=== PATIENT | female | born 1960 | race Asian ===

== ENCOUNTER 2016-06-01 07:13 | Observation (INO) | payer OTHER ==
[2016-06-01] MEDS ORDERED: SODIUM CHLORIDE 0.9% 1,000 ML IV ONE ×2 (07:36→08:59)
[2016-06-01] MEDS ORDERED: ZOLPIDEM 5 MG TABLET PO PRN ×2 (09:30→10:14)
[2016-06-01] MEDS ORDERED: HYDROcod/ACETAM 5/325 MG TABLET PO PRN ×2 (09:30→10:14)
[2016-06-01] MEDS ORDERED: NON FORMULARY MED (Lisinopril [Lisinopril] 40 MG) PO SCH (09:30)
[2016-06-01] MEDS ORDERED: SODIUM CHLORIDE FLUSH 0.9% 10 ML SYRINGE IVP PRN ×2 (09:30→10:14)
[2016-06-01] MEDS ORDERED: PROCHLORPERAZINE 10 MG/2 ML VIAL IVP PRN ×2 (09:30→10:14)
[2016-06-01] MEDS ORDERED: ACETAMINOPHEN 325 MG TABLET PO PRN ×2 (09:30→10:14)
[2016-06-01] MEDS ORDERED: HYDROcod/ACETAM 10 MG/325 MG TABLET PO PRN ×2 (09:30→10:14)
[2016-06-01] MEDS ORDERED: ONDANSETRON 4 MG/2 ML VIAL IVP PRN ×2 (09:30→10:14)
[2016-06-01] MEDS ORDERED: METOPROLOL TARTRATE 25 MG TABLET PO SCH ×3 (10:00→11:00)
[2016-06-01] MEDS ORDERED: NS W/20 MEQ KCL 1,000 ML IV SCH ×2 (10:00)
[2016-06-01] MEDS ORDERED: ASPIRIN EC 81 MG TABLET PO SCH ×2 (10:00)
[2016-06-01] MEDS: SODIUM CHLORIDE 0.9% 1,000 ML IV SCH ×3 (10:58→23:47)
[2016-06-01] MEDS: ASPIRIN EC 81 MG TABLET PO SCH (11:23)
[2016-06-01] MEDS: ENOXAPARIN 30 MG/0.3 ML SYRINGE SUBQ SCH (11:24)
[2016-06-01] MEDS: LISINOPRIL 20 MG TABLET PO SCH (11:24)
[2016-06-01] MEDS: INSULIN ASPART 300 UNIT/3 ML PEN SUBQ SCH ×3 (11:57→21:42)
[2016-06-01] MEDS ORDERED: INSULIN ASPART 300 UNIT/3 ML PEN SUBQ SCH (12:00)
[2016-06-01] MEDS: SODIUM CHLORIDE FLUSH 0.9% 10 ML SYRINGE IVP SCH ×2 (13:18→21:46)
[2016-06-01] MEDS ORDERED: SODIUM CHLORIDE FLUSH 0.9% 10 ML SYRINGE IVP SCH (14:00)
[2016-06-01] MEDS: METOPROLOL TARTRATE 25 MG TABLET PO SCH (21:42)
[2016-06-01] MEDS: diltiaZEM CD 120 MG CAPSULE PO SCH (21:43)
[2016-06-02] MEDS: SODIUM CHLORIDE FLUSH 0.9% 10 ML SYRINGE IVP SCH (05:14)
[2016-06-02] MEDS: SODIUM CHLORIDE 0.9% 1,000 ML IV SCH (05:49)
[2016-06-02] MEDS ORDERED: PANTOPRAZOLE 40 MG TABLET PO SCH ×2 (07:00)
[2016-06-02] MEDS: FERROUS SULFATE 325 MG TABLET PO SCH (08:16)
[2016-06-02] MEDS: ASPIRIN EC 81 MG TABLET PO SCH (08:16)
[2016-06-02] MEDS: METOPROLOL TARTRATE 25 MG TABLET PO SCH (08:17)
[2016-06-02] MEDS: diltiaZEM CD 120 MG CAPSULE PO SCH (08:17)
[2016-06-02] MEDS: LISINOPRIL 20 MG TABLET PO SCH (08:17)
[2016-06-02] MEDS: ENOXAPARIN 30 MG/0.3 ML SYRINGE SUBQ SCH (08:19)
[2016-06-02] MEDS: INSULIN ASPART 300 UNIT/3 ML PEN SUBQ SCH (08:20)
[2016-06-02] MEDS ORDERED: amLODIPine 5 MG TABLET PO SCH (09:00)
[2016-06-02] MEDS ORDERED: POLYETHYLENE GLYCOL 3350 17 GM PACKET PO SCH ×2 (09:00)
[2016-06-02] MEDS ORDERED: ENOXAPARIN 40 MG/0.4 ML SYRINGE SUBQ SCH (09:00)
== END 2016-06-02 10:01 | disposition home or self-care (01) ==
DX: E87.1 Hypo-osmolality and hyponatremia (principal); I12.9 Hypertensive chronic kidney disease with stage 1 through stage 4 chronic kidney disease, or unspecified chronic kidney disease; E11.22 Type 2 diabetes mellitus with diabetic chronic kidney disease; N18.3 Chronic kidney disease, stage 3 (moderate); E86.0 Dehydration; E78.5 Hyperlipidemia, unspecified; E73.9 Lactose intolerance, unspecified; Z79.899 Other long term (current) drug therapy; Z79.82 Long term (current) use of aspirin; Z87.891 Personal history of nicotine dependence
CPT/HCPCS: 36415; 71020; 80048; 80053; 81001; 82533; 83036; 83690; 83735; 83935; 84100; 84443; 84550; 85025; 96360; 96361; 96372; 99283; 99284; A9270; G0378; J1650

== ENCOUNTER 2016-11-28 18:46 | Emergency (ER) | payer OTHER ==
[2016-11-28] MEDS ORDERED: PROCHLORPERAZINE 10 MG/2 ML VIAL IVP STA (20:43)
[2016-11-28] MEDS ORDERED: KETOROLAC 60 MG/2 ML VIAL IVP STA (20:43)
--- NOTE | 2016-11-28 20:43 | ED Physician Documentation ---
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 This occurred approximately 2 weeks ago and she is seeing a retinal specialist. She has since developed a headache over the past 2 days the headache has become intolerable. She has a headache across the top of her forehead and pain in the right eye and behind the right eye. She has some nausea and vomiting associated with this. Review of Systems Constitutional: denies: Fever, Chills Eyes: reports: Loss of vision, Irritation Ears: denies: Loss of hearing, Ear pain Nose: denies: Rhinorrhea / runny nose, Congestion Throat: denies: Sore throat Cardiac: denies: Chest pain / pressure, Palpitations Respiratory: denies: Dyspnea, Cough Skin: denies: Rash Musculoskeletal: reports: Neck pain. denies: Back pain, Extremity pain Neurologic: reports: Headache. denies: Generalized weakness, Focal weakness, Numbness, Head injury PD PAST MEDICAL HISTORY - Past Medical History Cardiovascular: Hypertension, High cholesterol Respiratory: None Endocrine/Autoimmune: Type 2 diabetes GI: None : None HEENT: Chronic vision loss Psych: None Musculoskeletal: None Derm: None - Past Surgical History Past Surgical History: Yes HEENT: Cataracts, Other - Present Medications Home Medications: Ambulatory Orders Medication Instructions Recorded Confirmed Lisinopril 40 mg PO DAILY 05/06/15 11/28/16 Glimepiride 4 mg PO BID 07/20/15 11/28/16 Linagliptin [Tradjenta] 5 mg PO DAILY 07/20/15 11/28/16 Diltiazem HCl [Cardizem LA] 120 mg PO BID 06/01/16 11/28/16 Ferrous Sulfate 325 mg PO DAILY 06/01/16 11/28/16 Metoprolol Tartrate 50 mg PO BID 06/01/16 11/28/16 Pioglitazone [Actos] 15 mg PO DAILY 06/01/16 11/28/16 amLODIPine [Norvasc] 10 mg PO DAILY 06/01/16 11/28/16 Furosemide [Lasix] 20 mg PO DAILY 11/28/16 11/28/16 Rosuvastatin Calcium [Crestor] 20 mg PO DAILY 11/28/16 11/28/16 HYDROcod/ACETAM 5/325 [[place] 5/325] 1 - 2 ea PO Q6H PRN #15 tablet 11/29/16 - Allergies Allergies/Adverse Reactions: Allergies Allergy/AdvReac Type Severity Reaction Status Date / Time No Known Drug Allergies Allergy Verified 07/20/15 17:15 - Social History Does the pt smoke?: No Smoking Status: Never smoker Does the pt drink ETOH?: No Does the pt have substance abuse?: No - Immunizations Immunizations are current?: Yes PD ED PE NORMAL - Vitals Vital signs reviewed: Yes (hypertensive ) - General General: Alert and oriented X 3, No acute distress, Well developed/nourished - HEENT HEENT: Atraumatic, Other (The right eye is filled with blood in the posterior chamber. The left is clear. There is marcy-orbital edema present on the right. ) - Neck Neck: Supple, no meningeal sign, No bony TTP - Cardiac Cardiac: RRR, No murmur - Respiratory Respiratory: No respiratory distress, Clear bilaterally - Abdomen Abdomen: Soft, Non tender - Back Back: No CVA TTP, No spinal TTP - Derm Derm: Normal color, Warm and dry, No rash - Extremities Extremities: No deformity, No edema - Neuro Neuro: No motor deficit, No sensory deficit, Normal speech - Psych Psych: Normal mood, Normal affect Results - Vitals Vitals: Vital Signs - 24 hr 11/28/16 11/28/16 11/29/16 18:55 22:54 00:05 Temperature 37.0 C Heart Rate 56 L 65 65 Respiratory 16 18 16 Rate Blood Pressure 165/73 H 192/72 H 163/85 H O2 Saturation 100 100 96 11/29/16 01:29 Temperature Heart Rate 90 Respiratory 16 Rate Blood Pressure 170/82 H O2 Saturation 95 Oxygen O2 Source Room air - Labs Labs: Laboratory Tests 11/28/16 11/28/16 11/28/16 20:45 22:00 22:00 WBC 11.3 H RBC 5.68 H Hgb 11.3 L Hct 35.7 L MCV 62.9 L MCH 19.9 L MCHC 31.6 L RDW 16.3 H Plt Count 256 MPV 10.0 Neut # Not Reportable Lymph # Not Reportable [place] # Not Reportable Eos # Not Reportable Baso # Not Reportable Absolute Nucleated RBC Not Reportable Total Counted 100 Band Neuts % (Manual) 1 Neutrophils # (Manual) 7.3 H Lymphocytes # (Manual) 3.5 Monocytes # (Manual) 0.2 Eosinophils # (Manual) 0.1 Basophils # (Manual) 0.1 Nucleated RBCs Not Reportable Differential Comment MANUAL DIFFERENTIAL Manual Slide Review Indicated Platelet Estimate NORMAL (130-450,000) Platelet Morphology NORMAL APPEARANCE RBC Morph Micro Appear 3+ MICROCYTOSIS Sodium 135 Potassium 3.3 L Chloride 103 Carbon Dioxide 24 Anion Gap 8.0 BUN 34 H Creatinine 3.1 H Estimated GFR (MDRD) 15 L Glucose 213 H Calcium 8.6 Total Bilirubin 0.7 AST 17 ALT 17 Alkaline Phosphatase 58 Total Protein 6.2 L Albumin 2.5 L Globulin 3.7 Albumin/Globulin Ratio 0.7 L Lipase 22 Urine Color YELLOW Urine Clarity CLEAR Urine pH 6.5 Ur Specific [place] 1.015 Urine Protein >=300 H Urine Glucose (UA) 500 H Urine Ketones NEGATIVE Urine Occult Blood MODERATE H Urine Nitrite NEGATIVE Urine Bilirubin NEGATIVE Urine Urobilinogen 0.2 (NORMAL) Ur Leukocyte Esterase NEGATIVE Urine RBC 0-5 Urine WBC 4-5 Ur Squamous Epith Cells MANY Squamous H Urine Bacteria None Seen Urine Casts 0-2 Hyaline Casts Ur Microscopic Review INDICATED Urine Culture Comments NOT INDICATED - Rads (name of study) CT head without Radiology: Prelim report reviewed (Impression: 1. Superficial soft tissue swelling. 2. Small right maxillary mucous retention cyst. 3. Otherwise negative study.), EMP read indepedently, See rad report Procedures - IVC sono (time) 2036 Bedside IVC sono: IVC measures (cm) (0.78), IVC collapsed c insp (cm) (complete) , Significant dehydration PD MEDICAL DECISION MAKING - ED course Complexity details: reviewed results, re-evaluated patient, considered differential, d/w patient, d/w family ED course: 56 y/o diabetic female with a severe headache has improvement with resolution of her headache with migraine treatment consisting of benadry, compazine, toradal, decadron and saline. She was found to be significantly dehydrated and I have encouraged hydration and she will need to follow up with her retinal specialist about her right eye as planned. Departure - Departure Disposition: Home, Self Care Clinical Impression: Dehydration, Acute kidney injury superimposed on chronic kidney disease Headache Qualifiers: Headache type: unspecified Headache chronicity pattern: acute headache Intractability: not intractable Qualified Code(s): R51 - Headache Condition: Stable Instructions: ED Dehydration, ED Headache Migraine Follow-Up: Amanda Dumas ARNP [Primary Care Provider] - Prescriptions: HYDROcod/ACETAM 5/325 [[place] 5/325] 1 - 2 ea PO Q6H PRN #15 tablet PRN Reason: Pain Comments: Follow-up with your retinal specialist as planned. Discharge Date/Time: 11/29/16 01:35
[2016-11-28] MEDS ORDERED: diphenhydrAMINE INJ 50 MG/ML VIAL IVP STA (20:44)
[2016-11-28] MEDS ORDERED: DEXAMETHASONE 10 MG/ML VIAL IVP STA (20:45)
[2016-11-28 21:23] LABS: BILIRUBIN,URINE NEGATIVE (NEGATIVE); PH,URINE 6.5 PH (5.0-7.5)
[2016-11-28 21:24] LABS: UA w/ MICROSCOPIC CHARGE YES
--- NOTE | 2016-11-28 21:31 | CT Preliminary Report ---
Exam: CT Head W/O IMPRESSION: 1. Superficial soft tissue swelling. 2. Small right maxillary mucous retention cyst. 3. Otherwise negative study. [facility] SITE ID: [id number]
[2016-11-28 21:32] LABS: UR CULTURE IF IND NOT INDICATED
--- NOTE | 2016-11-28 21:34 | CT Report ---
EXAM: CT HEAD EXAM DATE: 11/28/2016 09:17 PM. CLINICAL HISTORY: Frontal headache stiff neck retinal hemorrhage. COMPARISON: None. TECHNIQUE: Multiaxial CT images were obtained from the foramen magnum to the vertex. IV contrast: Non e. Reformats: Coronal. In accordance with CT protocol optimization, one or more of the following dose reduction techniques w ere utilized for this exam: automated exposure control, adjustment of mA and/or KV based on patient s ize, or use of iterative reconstructive technique. FINDINGS: Parenchyma: No intraparenchymal hemorrhage. No evidence of mass, midline shift, or CT findings of inf arction. Farias-white differentiation is distinct. Extraaxial Spaces: Normal for age. No subdural or epidural collections. Ventricles: Normal in size and position. Sinuses: Small mucous retention cyst in the base of the right maxillary sinus. No air-fluid level. Im pacted tooth in base of left maxillary sinus. Clear other sinuses. Bones: Unremarkable. Other: Minimal superficial soft tissue swelling over right orbit. IMPRESSION: 1. Superficial soft tissue swelling. 2. Small right maxillary mucous retention cyst. 3. Otherwise negative study. [facility] Referring Provider Line: [phone] SITE ID: [id number]
[2016-11-28] MEDS ORDERED: diphenhydrAMINE INJ 50 MG/ML VIAL ONE (22:11)
[2016-11-28] MEDS ORDERED: KETOROLAC 30 MG/ML VIAL ONE (22:11)
[2016-11-28] MEDS ORDERED: PROCHLORPERAZINE 10 MG/2 ML VIAL ONE (22:11)
[2016-11-28] MEDS ORDERED: DEXAMETHASONE 10 MG/ML VIAL ONE (22:11)
[2016-11-28 22:22] LABS: ALBUMIN/GLOBULIN RATIO 0.7 (1.0-2.2); BILIRUBIN,TOTAL 0.7 mg/dL (0.2-1.0); CALCIUM 8.6 mg/dL (8.5-10.3); CREATININE 3.1 mg/dL (0.4-1.0); POTASSIUM 3.3 mmol/L (3.5-5.0); TOTAL PROTEIN 6.2 g/dL (6.7-8.2)
[2016-11-28 22:25] LABS: BASOPHILS % (AUTO) 3.5 %; EOSINOPHILS % (AUTO) 1.1 %; HCT - HEMATOCRIT 35.7 % (37.0-47.0); HGB - HEMOGLOBIN 11.3 g/dL (12.0-16.0); LYMPHOCYTES % (AUTO) 28.8 %; MEAN CORPUSCULAR HEMOGLOBIN 19.9 pg (27.0-31.0); MEAN CORPUSCULAR HGB CONC 31.6 g/dL (32.0-36.0); MEAN CORPUSCULAR VOLUME 62.9 fL (81.0-99.0); MONOCYTES % (AUTO) 2.5 %; NEUTROPHILS % (AUTO) 64.1 %; RED BLOOD COUNT 5.68 10^6/uL (4.20-5.40); RED CELL DISTRIBUTION WIDTH 16.3 % (12.0-15.0); UNCORRECTED WHITE BLOOD COUNT 11.3 x10^3/uL; WHITE BLOOD COUNT 11.3 x10^3/uL (4.8-10.8)
[2016-11-28 22:42] LABS: BAND NEUTROPHILS % (MANUAL) 1 %; BASOPHILS % (MANUAL) 1 %; EOSINOPHILS % (MANUAL) 1 %; LYMPHOCYTES % (MANUAL) 31 %; NEUTROPHILS % (MANUAL) 64 %; TOTAL CELLS COUNTED 100
[2016-11-28 22:43] LABS: NP AUTO DIFFERENTIAL? YES; NP MAN DIFFERENTIAL? NO; PLATELET ESTIMATE, MANUAL NORMAL (130-450,000) (NORMAL); PLATELET MORPHOLOGY NORMAL APPEARANCE (NORMAL)
[2016-11-29] MEDS ORDERED: SODIUM CHLORIDE 0.9% 1,000 ML IV ONE (00:12)
[2016-11-29 01:31] VITALS: BP 170/82
== END 2016-11-29 01:35 | disposition home or self-care (01) ==
LOC: ED 18:46
DX: R51 Headache (principal); E86.0 Dehydration; N17.9 Acute kidney failure, unspecified; E11.319 Type 2 diabetes mellitus with unspecified diabetic retinopathy without macular edema; H35.61 Retinal hemorrhage, right eye; E11.22 Type 2 diabetes mellitus with diabetic chronic kidney disease; I12.9 Hypertensive chronic kidney disease with stage 1 through stage 4 chronic kidney disease, or unspecified chronic kidney disease; N18.9 Chronic kidney disease, unspecified; Z79.84 Long term (current) use of oral hypoglycemic drugs
CPT/HCPCS: 36415; 70450; 80053; 81001; 81003; 83690; 85025; 87086; 96374; 96375; 99283; 99284

== ENCOUNTER 2017-11-28 05:58 | Day surgery (SDC) | payer OTHER ==
[2017-11-28] MEDS ORDERED: LACTATED RINGERS 1,000 ML IV ONE (07:01)
--- NOTE | 2017-11-28 07:09 | ANESTHESIA ---
Pre-Anesthesia VS, & Labs - Diagnosis Screening exam - Procedure colonoscopy Vital Signs: Temp Pulse Resp BP Pulse Ox 36.2 C L 72 16 129/56 L 100 11/28/17 06:46 11/28/17 06:46 11/28/17 06:46 11/28/17 06:46 11/28/17 06:46 Height 4 ft 10 in Weight (kg) 49.7 kg Body Mass Index 27.2 - NPO >8 hours - Is Patient ?: Not Applicable - Lab Results Current Lab Results: Laboratory Tests 11/28/17 06:57: POC Whole Bld Glucose 123 H Lab results reviewed: Yes Home Medications and Allergies Home Medications: Ambulatory Orders Medication Instructions Recorded Confirmed Lisinopril 40 mg PO DAILY 05/06/15 11/28/16 Glimepiride 4 mg PO BID 07/20/15 11/28/16 Linagliptin [Tradjenta] 5 mg PO DAILY 07/20/15 11/28/16 Diltiazem HCl [Cardizem LA] 120 mg PO BID 06/01/16 11/28/16 Ferrous Sulfate 325 mg PO DAILY 06/01/16 11/28/16 Metoprolol Tartrate 50 mg PO BID 06/01/16 11/28/16 Pioglitazone [Actos] 15 mg PO DAILY 06/01/16 11/28/16 amLODIPine [Norvasc] 10 mg PO DAILY 06/01/16 11/28/16 Furosemide [Lasix] 20 mg PO DAILY 11/28/16 11/28/16 Rosuvastatin Calcium [Crestor] 20 mg PO DAILY 11/28/16 11/28/16 HYDROcod/ACETAM 5/325 [[place] [address] 5/325] 1 - 2 ea PO Q6H PRN #15 tablet 11/29/16 Lisinopril 40 mg PO DAILY 05/06/15 Glimepiride 4 mg PO BID 07/20/15 Linagliptin [Tradjenta] 5 mg PO DAILY 07/20/15 Diltiazem HCl [Cardizem LA] 120 mg PO BID 06/01/16 Ferrous Sulfate 325 mg PO DAILY 06/01/16 Metoprolol Tartrate 50 mg PO BID 06/01/16 Pioglitazone [Actos] 15 mg PO DAILY 06/01/16 amLODIPine [Norvasc] 10 mg PO DAILY 06/01/16 Furosemide [Lasix] 20 mg PO DAILY 11/28/16 Rosuvastatin Calcium [Crestor] 20 mg PO DAILY 11/28/16 Allergies/Adverse Reactions: Allergies Allergy/AdvReac Type Severity Reaction Status Date / Time No Known Drug Allergies Allergy Verified 07/20/15 17:15 Anes History & Medical History - Anesthetic History Anesthesia Complications: reports: Post-Operative Nausea/Vomiting Family history of Anesthesia Complications: Denies Family history of Malignant Hyperthermia: Denies - Medical History Cardiovascular: reports: Hypertension Pulmonary: reports: None Gastrointestinal: reports: None Urinary: reports: Dialysis (Last dialysis on 11/27/17), Renal insuffiency Neuro: reports: None Musculoskeletal: reports: None Endocrine/Autoimmune: reports: Type 2 diabetes Blood Disorders: reports: None Skin: reports: None Smoking Status: Never smoker Psychosocial: reports: No issues indicated - Surgical History General:  Eyes Ears Nose Throat (EENT): Cataracts, Other Cardiothoracic: Other (AV fistula) Exam General: Alert, Oriented x3, Cooperative, No acute distress Mouth Openin Fingerbreadth Neck Mobility: Normal Mallampati classification: II Thyromental Distance: 4-6 cm Respiratory: Lungs clear, Normal breath sounds, No respiratory distress, No accessory muscle use Cardiovascular: Regular rate, Normal S1, Normal S2, No murmurs Mental/Cognitive Status: Alert/Oriented X3, Normal for patient Cognitive Status: Within normal limits Plan Anesthesia Type: MAC Consent for Procedure(s) Verified and Reviewed: Yes Code Status: Attempt Resuscitation ASA classification: 4-Incapacitating disease Is this case an emergency?: No
[2017-11-28] MEDS ORDERED: MIDAZOLAM 2 MG/2 ML VIAL IVP ONE (07:40)
[2017-11-28] MEDS ORDERED: KETAMINE 500 MG/10 ML VIAL IVP ONE (07:40)
[2017-11-28] MEDS ORDERED: PROPOFOL 200 MG/20 ML VIAL IVP ONE (07:40)
[2017-11-28 08:30] VITALS: BP 122/55
== END 2017-11-28 05:59 | disposition home or self-care (01) ==
LOC: SDS 05:58
PROVIDERS: ATTEND Surgery
PROC: 0DBH8ZZ Excision of Cecum, Via Natural or Artificial Opening Endoscopic (ICD-10-PCS; principal; 2017-11-28 07:30)
DX: Z01.818 Encounter for other preprocedural examination (principal); Z12.11 Encounter for screening for malignant neoplasm of colon; D12.0 Benign neoplasm of cecum; K62.1 Rectal polyp; K64.8 Other hemorrhoids; E11.22 Type 2 diabetes mellitus with diabetic chronic kidney disease; I12.0 Hypertensive chronic kidney disease with stage 5 chronic kidney disease or end stage renal disease; N18.6 End stage renal disease; Z99.2 Dependence on renal dialysis; Z79.84 Long term (current) use of oral hypoglycemic drugs; Z79.899 Other long term (current) drug therapy; Z87.891 Personal history of nicotine dependence
CPT/HCPCS: 45380; J7120; 88305

== ENCOUNTER 2019-03-05 21:21 | Emergency (ER) | payer OTHER, MEDICARE ==
[2019-03-05] MEDS ORDERED: HYDROcod/ACETAM 5/325 MG TABLET PO STA (21:38)
--- NOTE | 2019-03-05 21:38 | ED Physician Documentation ---
PD HPI FEMALE - Stated complaint Stated Complaint: FEMALE - Chief complaint Chief Complaint: Abd Pain - History obtained from History obtained from: Patient (58-year-old woman on dialysis, after dialysis today started to feel a burning pain in her vaginal area with urinary frequency and hesitancy. She does still urinate. No fevers or flank pain.) Review of Systems Constitutional: denies: Fever, Chills GI: denies: Abdominal Pain, Nausea, Vomiting, Diarrhea : reports: Dysuria, Frequency, Hesitancy PD PAST MEDICAL HISTORY - Past Medical History Cardiovascular: Hypertension Respiratory: None Neuro: None Endocrine/Autoimmune: Type 2 diabetes GI: None : Dialysis (Last dialysis on 11/27/17), Renal insuffiency HEENT:  Psych: None Musculoskeletal: None Derm: None - Past Surgical History Past Surgical History: Yes General:  Cardiovascular: Other (AV fistula) HEENT: Cataracts, Other - Present Medications Home Medications: Ambulatory Orders Medication Instructions Recorded Confirmed lisinopriL [Lisinopril] 0.5 mg PO DAILY 05/06/15 11/28/16 Linagliptin [Tradjenta] 5 mg PO DAILY 07/20/15 11/28/16 Ferrous Sulfate 325 mg PO DAILY 06/01/16 11/28/16 Metoprolol Tartrate 2 mg PO BID 06/01/16 11/28/16 Furosemide [Lasix] 20 mg PO BID 11/28/16 11/28/16 Aspirin 1 DAILY 11/28/17 Calcium Acetate [Phoslo] 1 TID 11/28/17 Pioglitazone [Actos] 1 DAILY 11/28/17 Vit B Comp No.3/Folic/C/Biotin DAILY 11/28/17 [[facility] Tablet] Ciprofloxacin [Cipro] 250 mg PO DAILY #5 tablet 03/05/19 - Allergies Allergies/Adverse Reactions: Allergies Allergy/AdvReac Type Severity Reaction Status Date / Time No Known Drug Allergies Allergy Verified 03/05/19 21:27 - Social History Does the pt smoke?: No Smoking Status: Never smoker Does the pt drink ETOH?: No Does the pt have substance abuse?: No - Immunizations Immunizations are current?: Yes PD ED PE NORMAL - Vitals Vital signs reviewed: Yes - General General: Alert and oriented X 3, No acute distress - Abdomen Abdomen: Soft, Non tender - Female 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[employer]), Other (normal externally) - Back Back: No CVA TTP - Neuro Neuro: Alert and oriented X 3, Normal speech Results - Vitals Vitals: Vital Signs - 24 hr 03/05/19 21:27 Temperature 36.5 C Heart Rate 78 Respiratory 14 Rate Blood Pressure 179/81 H O2 Saturation 100 Oxygen O2 Source Room air - Labs Labs: Laboratory Tests 03/05/19 21:35 Urine Color YELLOW Urine Clarity CLOUDY Urine pH 5.5 Ur Specific [place] 1.020 Urine Protein >=300 H Urine Glucose (UA) NEGATIVE Urine Ketones TRACE Urine Occult Blood LARGE H Urine Nitrite NEGATIVE Urine Bilirubin NEGATIVE Urine Urobilinogen 0.2 (NORMAL) Ur Leukocyte Esterase TRACE H Ur Microscopic Review INDICATED Urine Culture Comments Not Reportable Departure - Departure Disposition: 01 Home, Self Care Clinical Impression: Cystitis Condition: Good Record reviewed to determine appropriate education?: Yes Instructions: ED UTI Cystitis Female Prescriptions: Ciprofloxacin [Cipro] 250 mg PO DAILY #5 tablet Comments: We will culture your urine, the results should be done in 48-72 hours. If an antibiotic change is necessary we will call you. Return if worse in the meantime, especially if you develop increasing flank pain, fevers, or cannot keep down the medication.
[2019-03-05 21:50] LABS: GLUCOSE, URINE (UA) NEGATIVE (NEGATIVE); KETONES,URINE (UA) TRACE mg/dL (NEGATIVE); LEUKOCYTE ESTERASE, URINE TRACE (NEGATIVE); NITRITE,URINE NEGATIVE (NEGATIVE); OCCULT BLOOD,URINE LARGE (NEGATIVE); PH,URINE 5.5 PH (5.0-7.5); PROTEIN,URINE >=300 mg/dL (NEGATIVE); UROBILINOGEN,URINE 0.2 (NORMAL) E.U./dL (NORMAL)
[2019-03-05 21:55] LABS: BILIRUBIN,URINE NEGATIVE (NEGATIVE); CLARITY,URINE CLOUDY (CLEAR); ICTOTEST,URINE NEGATIVE
[2019-03-05] MEDS ORDERED: CIPROFLOXACIN 250 MG TABLET PO STA ×2 (22:04→22:18)
[2019-03-05 22:06] LABS: BACTERIA,URINE Many /HPF (None Seen); CASTS, URINE 6-10 Fine Granular /LPF; SQUAMOUS EPITHELIAL CELL,UR FEW Squamous (<= Few)
[2019-03-05 22:16] VITALS: BP 180/69
== END 2019-03-05 22:29 | disposition home or self-care (01) ==
LOC: ED 21:21
DX: N30.90 Cystitis, unspecified without hematuria (principal); N28.9 Disorder of kidney and ureter, unspecified; Z99.2 Dependence on renal dialysis; I10 Essential (primary) hypertension; E11.9 Type 2 diabetes mellitus without complications; Z79.82 Long term (current) use of aspirin
CPT/HCPCS: 81001; 87086; 99283; A9270; 81003

== ENCOUNTER 2020-03-26 17:37 | Emergency (ER) | payer MEDICARE, OTHER ==
--- NOTE | 2020-03-26 18:17 | ED Physician Documentation ---
History of Present Illness - Stated complaint Stated Complaint: CONFUSED,CAN'T WALK - Chief complaint Chief Complaint: Neuro - History obtained from History obtained from: Patient - Additonal information Additional information: 59-year-old female was brought into the emergency department for altered mental status and confusion. Her son reports that today she has not been answering questions correctly and has been confused. He asked her how many dogs they had she did not answer correctly, but he is not sure if they may have been trying ot remember the old dogs who have . He got very alarmed when she needed help walking to the bathroom and was unable to use the bathroom correctly. She did stumble today when walking to the bathroom. She has had no slurred speech, Facial droop arm or leg weakness. She does have a history of diabetes as well as kidney transplant completed at [facility] in July 2019. She is currently followed by business strategist Dr. Cole at [facility]. she is on multiple immune suppressants and compliant with meds. Her son denies any recent cough, cold, congestion, fevers, abdominal pain, vomiting, or diarrhea. No recent c/o CP, SOB. no falls or trauma. Review of Systems Unable to obtain: Confused Constitutional: denies: Fever, Chills Ears: reports: Reviewed and negative Nose: reports: Reviewed and negative Throat: reports: Reviewed and negative Cardiac: reports: Reviewed and negative Respiratory: reports: Reviewed and negative GI: reports: Reviewed and negative : reports: Reviewed and negative Skin: reports: Reviewed and negative Musculoskeletal: reports: Reviewed and negative Neurologic: reports: Confused, Altered mental status Psychiatric: reports: Reviewed and negative PD PAST MEDICAL HISTORY - Past Medical History Cardiovascular: Hypertension Respiratory: None Neuro: None Endocrine/Autoimmune: Type 2 diabetes GI: None : Dialysis (Last dialysis on 11/27/17), Renal insuffiency HEENT:  Psych: None Musculoskeletal: None Derm: None - Past Surgical History Past Surgical History: Yes General:  Cardiovascular: Other (AV fistula) HEENT: Cataracts, Other - Present Medications Home Medications: Ambulatory Orders Medication Instructions Recorded Confirmed Aspirin 81 mg PO DAILY 11/28/17 03/26/20 Cinacalcet HCl [Sensipar] 30 mg PO BID 03/26/20 03/26/20 Famotidine [Acid-Pep] 20 mg PO DAILY 03/26/20 03/26/20 Insulin Glargine [Lantus Solostar] 31 units SUBQ DAILY 03/26/20 03/26/20 Insulin Lispro [Humalog] 1 units SUBQ DAILY 03/26/20 03/26/20 Magnesium Oxide [Magnesium] 400 mg PO BID 03/26/20 03/26/20 Mycophenolate Sodium [Myfortic] 360 mg PO BID 03/26/20 03/26/20 Prednisone 5 mg PO DAILY 03/26/20 03/26/20 Tacrolimus [Prograf] 3.5 mg PO BID 03/26/20 03/26/20 carvediloL [Coreg] 12.5 mg PO BID 03/26/20 03/26/20 gemfibroziL [Lopid] 600 mg PO BID 03/26/20 03/26/20 - Allergies Allergies/Adverse Reactions: Allergies Allergy/AdvReac Type Severity Reaction Status Date / Time No Known Drug Allergies Allergy Verified 03/26/20 17:50 - Social History Does the pt smoke?: No Smoking Status: Never smoker Does the pt drink ETOH?: No Does the pt have substance abuse?: No - Immunizations Immunizations are current?: Yes - POLST Patient has POLST: No PD ED PE EXPANDED - General General: Alert, No acute distress - Neck Neck: Supple w/out meningeal sx. No: Adenopathy - Cardiac Cardiac: Regular Rate, Regular Rhythm, Murmur Present, Radial strong equal, Pedal strong equal, Cap refill < 2 sec - Respiratory Respiratory: Clear to ausultation ernesto. No: Distress, Labored - Abdomen Abdomen: Normal Bowel sounds. No: Tender to palpation - Extremities Extremities: Left arm (AV fistula left upper arm positive thrill.), Pedal Pulses Present - Neuro Neuro: Alert and Oriented X 3, CNII-XII intact, Cerebellar nl, Normal gait, Normal speech. No: Nystagmus - GCS Eye Opening: Spontaneous Motor: Obeys Commands Verbal: Oriented Total: 15 Results - Vitals Vitals: Vital Signs - 24 hr 03/26/20 03/26/20 03/26/20 17:47 18:10 19:14 Temperature 36.4 C L Heart Rate 73 71 83 Respiratory 18 16 29 H Rate Blood Pressure 146/83 H 125/48 L 135/56 H O2 Saturation 92 98 98 03/26/20 03/26/20 19:35 20:04 Temperature Heart Rate 72 75 Respiratory 26 H 29 H Rate Blood Pressure 130/53 L 137/48 H O2 Saturation 97 98 Oxygen O2 Source Room air - EKG (time done) 1800 Rate: Rate (enter#) Rhythm: NSR [place]: Normal Ischemia: Q waves (inferior leads) Compare to prior EKG: Unchanged from prior EKG Computer interpretation: Agree with computer - Labs Labs: Laboratory Tests 03/26/20 03/26/20 03/26/20 18:16 18:16 18:16 WBC 10.1 RBC 5.02 Hgb 10.1 L Hct 34.5 L MCV 68.7 L MCH 20.1 L MCHC 29.3 L RDW 14.5 Plt Count 183 Neut # (Auto) Not Reportable Lymph # (Auto) Not Reportable Cloud # (Auto) Not Reportable Eos # (Auto) Not Reportable Baso # (Auto) Not Reportable Absolute Nucleated RBC Not Reportable Total Counted 100 Band Neuts % (Manual) 7 Abnorm Lymph % (Manual) 0 Metamyelocytes % 1 H Nucleated RBC % Not Reportable Neutrophils # (Manual) 8.2 H Lymphocytes # (Manual) 0.8 L Monocytes # (Manual) 1.0 Eosinophils # (Manual) 0.0 Basophils # (Manual) 0.0 Differential Comment MANUAL DIFFERENTIAL WBC Morphology NORMAL APPEARANCE Platelet Estimate NORMAL (130-450,000) Platelet Morphology NORMAL APPEARANCE RBC Morph Micro Appear 2+ MICROCYTOSIS Sodium 130 L Potassium 3.8 Chloride 97 L Carbon Dioxide 20 L Anion Gap 13.0 BUN 29 H Creatinine 1.2 H Estimated GFR (MDRD) 46 L Glucose 190 H Calcium 10.0 Phosphorus 2.4 L Magnesium 1.6 L Total Bilirubin 0.8 AST 16 ALT 14 Alkaline Phosphatase 47 Troponin I High Sens 10.5 Total Protein 6.9 Albumin 3.6 Globulin 3.3 Albumin/Globulin Ratio 1.1 Lipase 21 L TSH Free T4 Urine Color Urine Clarity Urine pH Ur Specific [place] Urine Protein Urine Glucose (UA) Urine Ketones Urine Occult Blood Urine Nitrite Urine Bilirubin Urine Urobilinogen Ur Leukocyte Esterase Urine RBC Urine WBC Ur Squamous Epith Cells Urine Bacteria Ur Microscopic Review Urine Culture Comments 03/26/20 03/26/20 18:16 18:25 WBC RBC Hgb Hct MCV MCH MCHC RDW Plt Count Neut # (Auto) Lymph # (Auto) Cloud # (Auto) Eos # (Auto) Baso # (Auto) Absolute Nucleated RBC Total Counted Band Neuts % (Manual) Abnorm Lymph % (Manual) Metamyelocytes % Nucleated RBC % Neutrophils # (Manual) Lymphocytes # (Manual) Monocytes # (Manual) Eosinophils # (Manual) Basophils # (Manual) Differential Comment WBC Morphology Platelet Estimate Platelet Morphology RBC Morph Micro Appear Sodium Potassium Chloride Carbon Dioxide Anion Gap BUN Creatinine Estimated GFR (MDRD) Glucose Calcium Phosphorus Magnesium Total Bilirubin AST ALT Alkaline Phosphatase Troponin I High Sens Total Protein Albumin Globulin Albumin/Globulin Ratio Lipase TSH 0.79 Free T4 0.81 Urine Color YELLOW Urine Clarity CLEAR Urine pH 6.0 Ur Specific [place] 1.010 Urine Protein NEGATIVE Urine Glucose (UA) NEGATIVE Urine Ketones NEGATIVE Urine Occult Blood NEGATIVE Urine Nitrite NEGATIVE Urine Bilirubin NEGATIVE Urine Urobilinogen 0.2 (NORMAL) Ur Leukocyte Esterase SMALL H Urine RBC 0-5 Urine WBC 4-5 Ur Squamous Epith Cells NONE SEEN Urine Bacteria None Seen Ur Microscopic Review INDICATED Urine Culture Comments INDICATED - Rads (name of study) CXR Radiology: Final report received (Cardiomegaly with findings suggestive of mild early pulmonary edema or CHF. Infectious inflammatory process not completely excluded if clinically appropriate. No focal consolidations.) CT head Radiology: Final report received (No acute intracranial findings) PD MEDICAL DECISION MAKING - ED course Complexity details: reviewed results, re-evaluated patient, considered differential, d/w patient ED course: 59-year-old female who has a history of diabetes and renal transplant in July 2019 presents to the emergency department after her family son found that she was confused at home and he felt that she was not walking properly today. He reported that she incorrectly answered questions about how many dogs they had and that she was shuffling instead of actually walking. Here in the emergency department she has had no focal neuro deficits. She was alert and oriented for me and able to answer all of my questions appropriately including time, the year recent events in our [employer] capital as well is the name of her dog at home. Screening labs reveal no leukocytosis. She has no fever or elevated white blood cell count. Her urine shows no signs of infection. However it should be noted that she does take immune suppressant so she may not mount the typical response. Chest x-ray suggest mild cardiomegaly and perhaps early CHF but in comparison to the study completed 3 years ago there is essentially no change. Patient has no hypoxia and cardiopulmonary auscultation was unremarkable. We did do a CT of the head which was also unremarkable. Her son was concerned that she may have been hypoglycemic as she only ate a sandwich earlier in the morning however her blood glucose here was 190mg/dl. She had no focal neuro deficits and showed a normal gait and negative romberg here in the ED She does have a mild hyponatremia of 130 today. In the past she has been as low as 119. The rest of her electrolytes including kidney function are all well preserved. She was given 1 L of IV fluids here in the emergency department. After some time in observation her son reported that she looked markedly better. She was able to get out of bed ambulate on her own with a steady gait without assistance. She had no cerebellar signs on gait. The etiology of her confusion at home is not well understood at this time however there are no focal findings or indications for further hospitalization. This was discussed with the son. He will take her home and if the symptoms return return for a second look. She will also have very close follow up with her primary care physician Departure - Departure Disposition: 01 Home, Self Care Clinical Impression: Confusion, History of renal transplant Diabetes Qualifiers: Diabetes mellitus type: type 2 Diabetes mellitus ferry terminal supervisor insulin use: with ferry terminal supervisor use Diabetes mellitus complication status: with kidney complications Diabetes mellitus complication detail: with other kidney complication Qualified Code(s): E11.29 - Type 2 diabetes mellitus with other diabetic kidney complication Condition: Stable Record reviewed to determine appropriate education?: Yes Instructions: ED Confusion Follow-Up: ANDREI FOREMAN MD [Primary Care Provider] - Comments: Yohan was seen in the emergency department today for confusion at home. Here in the emergency department she has been awake and answered all questions normally. She was able to walk without any assistance. The CT of her head did not show any worrisome findings. Her blood count was normal. Her creatinine is 1.2. Her urine showed no signs of infection. Her sodium today in the emergency department was 130. This does appear to be about her baseline as she has been as low as 119 in the past. As we discussed I doubt that the low sodium level was contributing to her confusion. Please discuss this ED visit with her primary care provider. If she has a return of confusion, any slurred speech, weakness in the arms or legs or facial droop rehab any other concerns such as uncontrolled abdominal pain fevers or vomiting please return immediately to the ER for a second look
[2020-03-26 18:24] LABS: BASOPHILS % (AUTO) 0.1 %; HGB - HEMOGLOBIN 10.1 g/dL (12.0-16.0); LYMPHOCYTES % (AUTO) 6.4 %; MEAN CORPUSCULAR HEMOGLOBIN 20.1 pg (27.0-31.0); MEAN CORPUSCULAR HGB CONC 29.3 g/dL (32.0-36.0); MEAN CORPUSCULAR VOLUME 68.7 fL (81.0-99.0); MONOCYTES % (AUTO) 9.5 %; NEUTROPHILS % (AUTO) 83.3 %; PLT - PLATELET COUNT 183 10^3/uL (130-450); RED BLOOD COUNT 5.02 10^6/uL (4.20-5.40); RED CELL DISTRIBUTION WIDTH 14.5 % (12.0-15.0); WHITE BLOOD COUNT 10.1 x10^3/uL (4.8-10.8)
[2020-03-26 18:30] LABS: ABNORMAL LYMPHS % (MANUAL) 0 %
[2020-03-26 18:36] LABS: BILIRUBIN,URINE NEGATIVE (NEGATIVE); CLARITY,URINE CLEAR (CLEAR); GLUCOSE, URINE (UA) NEGATIVE (NEGATIVE); KETONES,URINE (UA) NEGATIVE (NEGATIVE); LEUKOCYTE ESTERASE, URINE SMALL (NEGATIVE); NITRITE,URINE NEGATIVE (NEGATIVE); OCCULT BLOOD,URINE NEGATIVE (NEGATIVE); PROTEIN,URINE NEGATIVE (NEGATIVE); UROBILINOGEN,URINE 0.2 (NORMAL) E.U./dL (NORMAL)
[2020-03-26 18:36] LABS: ALBUMIN 3.6 g/dL (3.2-5.5); ALBUMIN/GLOBULIN RATIO 1.1 (1.0-2.2); BILIRUBIN,TOTAL 0.8 mg/dL (0.2-1.0); CREATININE 1.2 mg/dL (0.4-1.0); MAGNESIUM 1.6 mg/dL (1.7-2.8); PHOSPHORUS 2.4 mg/dL (2.5-4.6); TOTAL PROTEIN 6.9 g/dL (6.7-8.2)
--- NOTE | 2020-03-26 18:42 | XRAY Report ---
PROCEDURE: Chest 1 View X-Ray INDICATIONS: Chest Pain TECHNIQUE: One view of the chest was acquired. COMPARISON: 06/01/2016 FINDINGS: Surgical changes and devices: None. Lungs and pleura: Mild diffuse interstitial prominence with suggestion of mild central vascular prachi estion. No focal consolidation. Hazy opacities of the left costophrenic angle may represent small ple ural effusion. Mediastinum: Mediastinal contours appear stable. Heart size is enlarged. Bones and chest wall: No suspicious bony lesions. Overlying soft tissues appear unremarkable. IMPRESSION: Cardiomegaly with findings suggestive of mild/early pulmonary edema or CHF. Infectious/inflammatory p rocess not completely excluded if clinically appropriate. No focal consolidations. Reviewed by: Fausto Elder MD on 03/26/2020 5:41 PM [place] Approved by: Fausto Elder MD on 03/26/2020 5:41 PM AKST Station ID: [id number]
[2020-03-26 18:45] LABS: BAND NEUTROPHILS % (MANUAL) 7 %; LYMPHOCYTES # (MANUAL) 0.8 10^3/uL (1.5-3.5); LYMPHOCYTES % (MANUAL) 8 %; METAMYELOCYTES % (MANUAL) 1 %
[2020-03-26 18:47] LABS: DIFFERENTIAL COMMENT MANUAL DIFFERENTIAL; PLATELET ESTIMATE, MANUAL NORMAL (130-450,000) (NORMAL); PLATELET MORPHOLOGY NORMAL APPEARANCE (NORMAL)
[2020-03-26 18:53] LABS: THYROID STIMULATING HORMONE 0.79 uIU/mL (0.34-5.60)
[2020-03-26 18:53] LABS: BACTERIA,URINE None Seen /HPF (None Seen); RBC,URINE 0-5 /HPF (0-5); SQUAMOUS EPITHELIAL CELL,UR NONE SEEN (<= Few)
[2020-03-26 18:55] LABS: FREE T4 (FREE THYROXINE) 0.81 ng/dL (0.58-1.64)
--- NOTE | 2020-03-26 19:18 | CT Report ---
PROCEDURE: HEAD WO INDICATIONS: ams TECHNIQUE: Noncontrast 4.5 mm thick angled axial sections acquired from the foramen magnum to the vertex. For r adiation dose reduction, the following was used: automated exposure control, adjustment of mA and/or kV according to patient size. COMPARISON: 11/28/2016. FINDINGS: Image quality: Excellent. There is diffuse cortical volume loss with associated ex vacuo dilatation of the bilateral ventricles . No acute intracranial hemorrhage or evidence of transcortical infarction. Scattered bilateral per iventricular white matter hypoattenuation likely sequela from chronic small vessel ischemic disease. Atherosclerotic calcifications within the intracranial segments of the bilateral internal carotid art eries are noted. Skull and face: Calvarium and visualized facial bones are intact, without suspicious lesions. Sinuses: Visualized sinuses and mastoids are clear. IMPRESSION: CT head without acute intracranial abnormalities. Age-related senescent changes and sequela of chronic small vessel ischemic disease. No acute calvarial fractures. Reviewed by: Fausto Elder MD on 03/26/2020 6:17 PM [place] Approved by: Fausto Elder MD on 03/26/2020 6:17 PM [place] Station ID: [id number]
[2020-03-26] MEDS ORDERED: SODIUM CHLORIDE 0.9% 1,000 ML IV STA (19:28)
[2020-03-26 20:41] VITALS: BP 141/47
== END 2020-03-26 20:51 | disposition home or self-care (01) ==
LOC: ED 17:37
DX: R41.0 Disorientation, unspecified (principal); E87.1 Hypo-osmolality and hyponatremia; Z94.0 Kidney transplant status; Z79.899 Other long term (current) drug therapy; E11.29 Type 2 diabetes mellitus with other diabetic kidney complication; Z79.4 Long term (current) use of insulin; I10 Essential (primary) hypertension; Z79.82 Long term (current) use of aspirin
CPT/HCPCS: 36415; 51701; 70450; 80053; 81001; 81003; 83690; 83735; 84100; 84439; 84443; 84484; 85025; 87077; 87086; 87181; 93005; 99284

== ENCOUNTER 2020-05-18 06:35 | Outpatient (CLI) | payer MEDICARE, OTHER ==
--- NOTE | 2020-05-18 10:36 | Ultrasound Report ---
PROCEDURE: Transplanted Kidney INDICATIONS: KIDNEY REPLACED BY TRANSPLANT TECHNIQUE: Real time scanning was performed of the transplant kidney, followed by color and pulsed D oppler interrogation of the renal vessels. COMPARISON: 11/01/2015 retroperitoneal ultrasound. FINDINGS: Farias-scale imaging: Negative right kidney is 8.7 cm long; renal cortical thickness is 1.0 cm. The lef t kidney measures 9.6 cm in length, and cortical thickness of 1.2 cm. Echogenic appearance of the valarie mekhi kidneys suggestive of medical renal disease. There is a right lower quadrant renal transplant measuring 11.2 x 6.7 x 5.7 cm. Cortex measures 1.7 c m in thickness. There is mild caliectasis. No hydronephrosis. Renal cortex is normal in echogenicity . No perinephric fluid collections. Iliac artery peak systolic velocity: 137 cm/s. Right external iliac artery peak systolic velocity measures 184 cm/second. Proximal renal artery peak systolic velocity: 201 cm/s. Mid renal artery peak systolic velocity measures 236 cm/second Distal renal artery peak systolic velocity measures 175 cm/second. Renal vein: Patent with normal waveform morphology. Iliac vein: Patent with normal waveform morphology. Renal parenchyma perfusion: normal vascularization by color Doppler. Renal resistive index (superior, mid, inferior): 0.8, 0.8, 0.8. Bladder: Pre-void bladder volume is 509 mL; post void residual is 37 mL. IMPRESSION: Right lower quadrant renal transplant. Mild caliectasis. No hydronephrosis. No specific sonographic criteria for focal arterial stenosis Post void residual measuring 37 cc. Reviewed by: Tai Dalal MD on 05/18/2020 10:35 AM [facility] Approved by: Tai Dalal MD on 05/18/2020 10:35 AM PST Station ID: [id number]
== END 2020-05-18 06:36 | disposition home or self-care (01) ==
LOC: DI 06:35
PROVIDERS: ATTEND Internal Medicine Nephrology
DX: N28.89 Other specified disorders of kidney and ureter (principal); Z94.0 Kidney transplant status

== ENCOUNTER 2020-07-24 20:50 | Outpatient (CLI) | payer MEDICARE, OTHER | END 2020-07-24 20:51 | disposition critical access hospital (66) | LOC: EMS 20:50 | DX: R30.0 Dysuria (principal); R10.2 Pelvic and perineal pain; R50.9 Fever, unspecified; R82.998 Other abnormal findings in urine | CPT/HCPCS: A0425; A0429 ==

== ENCOUNTER 2020-07-24 21:13 | Inpatient (IN) | payer MEDICARE, OTHER ==
--- NOTE | 2020-07-24 21:21 | ED Physician Documentation ---
History of Present Illness - Stated complaint Stated Complaint: MALAISE, DARK URINE, ABD PAIN - History obtained from History obtained from: Patient - History of Present Illness Timing: How many days ago (2-3) Pain level now: 2 Radiates to: no radiation Improved by: no ameliorating factors Worsened by: urinating (suprapubic discomfort) - Additonal information Additional information: c/o 2-3 days of generalized malaise, suprapubic cramping, cloudy urine. She says she has been sleeping for most of the day over past 2-3 days and has decreased appetite and decreased PO intake (but is tolerating PO). She had a kidney transplant 1 year ago and her medications include antirejection meds; she has been off antibiotics, antifungals, and antivirals for several months. She is afebrile in ED but EMS measured 102 PO fever LIBRARY MONITOR Review of Systems Constitutional: reports: Fever, Myalgias, Fatigue. denies: Chills, Sweats Eyes: reports: Reviewed and negative Cardiac: reports: Reviewed and negative Respiratory: reports: Reviewed and negative GI: reports: Reviewed and negative : denies: Dysuria, Frequency, Hematuria Skin: denies: Rash Musculoskeletal: denies: Neck pain, Back pain Neurologic: reports: Generalized weakness. denies: Focal weakness, Numbness, Altered mental status, Headache PD PAST MEDICAL HISTORY - Past Medical History Cardiovascular: Hypertension Respiratory: None Neuro: None Endocrine/Autoimmune: Type 2 diabetes GI: None : Dialysis (Last dialysis on 11/27/17), Renal insuffiency HEENT:  Psych: None Musculoskeletal: None Derm: None - Past Surgical History Past Surgical History: Yes General:  Cardiovascular: Other (AV fistula) HEENT: Cataracts, Other - Present Medications Home Medications: Ambulatory Orders Medication Instructions Recorded Confirmed Aspirin 81 mg PO DAILY 11/28/17 07/24/20 Cinacalcet HCl [Sensipar] 60 mg PO DAILY 03/26/20 07/24/20 Famotidine [Acid-Pep] 20 mg PO DAILY 03/26/20 07/24/20 Insulin Glargine [Lantus Solostar] 31 units SUBQ DAILY 03/26/20 07/24/20 Insulin Lispro [Humalog] 1 units SUBQ DAILY 03/26/20 07/24/20 Mycophenolate Sodium [Myfortic] 180 mg PO BID 03/26/20 07/24/20 Prednisone 5 mg PO DAILY 03/26/20 07/24/20 Tacrolimus [Prograf] 2.5 mg PO BID 03/26/20 07/24/20 carvediloL [Coreg] 12.5 mg PO BID 03/26/20 07/24/20 gemfibroziL [Lopid] 600 mg PO BID 03/26/20 07/24/20 - Allergies Allergies/Adverse Reactions: Allergies Allergy/AdvReac Type Severity Reaction Status Date / Time No Known Drug Allergies Allergy Verified 07/24/20 21:35 - Social History Does the pt smoke?: No Smoking Status: Never smoker Does the pt drink ETOH?: No Does the pt have substance abuse?: No - Immunizations Immunizations are current?: Yes - POLST Patient has POLST: No PD ED PE NORMAL - Vitals Vital signs reviewed: Yes - General General: Alert and oriented X 3, No acute distress, Well developed/nourished - HEENT HEENT: Other (tacky mucous membranes) - Neck Neck: Supple, no meningeal sign - Cardiac Cardiac: RRR, No murmur - Respiratory Respiratory: No respiratory distress, Clear bilaterally - Abdomen Abdomen: Soft, Non tender, Non distended - Back Back: No CVA TTP - Derm Derm: Normal color, Warm and dry - Extremities Extremities: No edema Results - Vitals Vitals: Vital Signs - 24 hr 07/24/20 07/24/20 07/24/20 21:30 21:32 21:56 Temperature 37.3 C Heart Rate 78 75 Respiratory 15 15 15 Rate Blood Pressure 160/60 H 157/65 H O2 Saturation 99 98 07/24/20 23:06 Temperature Heart Rate 75 Respiratory 24 Rate Blood Pressure 130/56 L O2 Saturation 100 Oxygen O2 Source Room air - Labs Labs: Laboratory Tests 07/24/20 07/24/20 07/24/20 21:20 21:46 21:46 WBC 14.6 H RBC 4.38 Hgb 8.4 L Hct 28.9 L MCV 66.0 L MCH 19.2 L MCHC 29.1 L RDW 16.6 H Plt Count 461 H MPV 10.7 Neut # (Auto) 12.0 H Lymph # (Auto) 1.1 L Gonzales # (Auto) 1.2 H Eos # (Auto) 0.0 Baso # (Auto) 0.0 Absolute Nucleated RBC 0.00 Nucleated RBC % 0.0 Manual Slide Review Indicated WBC Morphology NORMAL APPEARANCE Platelet Estimate INCREASED (>450,000) Platelet Morphology NORMAL APPEARANCE RBC Morph Micro Appear 1+ MICROCYTOSIS Sodium 133 L Potassium 4.0 Chloride 107 Carbon Dioxide 18 L Anion Gap 8.0 BUN 25 H Creatinine 1.7 H Estimated GFR (MDRD) 31 L Glucose 141 H Lactic Acid Calcium 10.5 H Magnesium 2.5 Total Bilirubin 0.7 AST 10 ALT < 10 L Alkaline Phosphatase 48 Total Protein 7.5 Albumin 3.5 Globulin 4.0 Albumin/Globulin Ratio 0.9 L Lipase 19 L Urine Color YELLOW Urine Clarity SL. CLOUDY Urine pH 6.0 Ur Specific [place] 1.020 Urine Protein TRACE Urine Glucose (UA) NEGATIVE Urine Ketones NEGATIVE Urine Occult Blood TRACE-INTA Urine Nitrite NEGATIVE Urine Bilirubin NEGATIVE Urine Urobilinogen 0.2 (NORMAL) Ur Leukocyte Esterase MODERATE H Urine RBC 0-5 Urine WBC >25 H Ur Squamous Epith Cells FEW Squamous Urine Bacteria Many H Ur Microscopic Review INDICATED Urine Culture Comments INDICATED Nasal Adenovirus (PCR) Nasal B. parapertussis DNA (PCR) Nasal Coronavir 229E PCR Nasal Coronavir HKU1 PCR Nasal Coronavir NL63 PCR Nasal Coronavir OC43 PCR Nasal Enterovir/Rhinovir PCR Nasal Influenza B PCR Nasal Influenza A PCR Nasal Parainfluen 1 PCR Nasal Parainfluen 2 PCR Nasal Parainfluen 3 PCR Nasal Parainfluen 4 PCR Nasal RSV (PCR) Nasal B.pertussis DNA PCR Nasal C.pneumoniae (PCR) Juan Human Metapneumo PCR Nasal M.pneumoniae (PCR) Nasal SARS-CoV-2 (PCR) 07/24/20 07/24/20 21:46 21:50 WBC RBC Hgb Hct MCV MCH MCHC RDW Plt Count MPV Neut # (Auto) Lymph # (Auto) Gonzales # (Auto) Eos # (Auto) Baso # (Auto) Absolute Nucleated RBC Nucleated RBC % Manual Slide Review WBC Morphology Platelet Estimate Platelet Morphology RBC Morph Micro Appear Sodium Potassium Chloride Carbon Dioxide Anion Gap BUN Creatinine Estimated GFR (MDRD) Glucose Lactic Acid 1.2 Calcium Magnesium Total Bilirubin AST ALT Alkaline Phosphatase Total Protein Albumin Globulin Albumin/Globulin Ratio Lipase Urine Color Urine Clarity Urine pH Ur Specific [place] Urine Protein Urine Glucose (UA) Urine Ketones Urine Occult Blood Urine Nitrite Urine Bilirubin Urine Urobilinogen Ur Leukocyte Esterase Urine RBC Urine WBC Ur Squamous Epith Cells Urine Bacteria Ur Microscopic Review Urine Culture Comments Nasal Adenovirus (PCR) NOT DETECTED Nasal B. parapertussis DNA (PCR) NOT DETECTED Nasal Coronavir 229E PCR NOT DETECTED Nasal Coronavir HKU1 PCR NOT DETECTED Nasal Coronavir NL63 PCR NOT DETECTED Nasal Coronavir OC43 PCR NOT DETECTED Nasal Enterovir/Rhinovir PCR NOT DETECTED Nasal Influenza B PCR NOT DETECTED Nasal Influenza A PCR NOT DETECTED Nasal Parainfluen 1 PCR NOT DETECTED Nasal Parainfluen 2 PCR NOT DETECTED Nasal Parainfluen 3 PCR NOT DETECTED Nasal Parainfluen 4 PCR NOT DETECTED Nasal RSV (PCR) NOT DETECTED Nasal B.pertussis DNA PCR NOT DETECTED Nasal C.pneumoniae (PCR) NOT DETECTED Juan Human Metapneumo PCR NOT DETECTED Nasal M.pneumoniae (PCR) NOT DETECTED Nasal SARS-CoV-2 (PCR) NOT DETECTED - Rads (name of study) chest xray Radiology: Prelim report reviewed, See rad report PD MEDICAL DECISION MAKING - ED course Complexity details: reviewed old records, reviewed results, re-evaluated patient, considered differential, d/w patient ED course: HPI and test results s/o UTI in setting of renal transplant approximately 1 year ago. I discussed the case with Dr. Dalal (talent acquisition sourcer for patient's transplant physician at [facility]). Given patient creatinine tonight of 1.7 with most recent, post-transplant creatinines of 1.2 (at [facility] in and at [facility] in May,), Dr. Dalal recommends IV antibiotics (recommends rocephin with transition to cipro when ready for discharge) but admit for IV hydration and monitoring of her bun/creatinine with goal of improvement towards her post- transplant baseline creatinine. Dr. Dalal says patient can be admitted to [facility] (does not require transfer to higher level of care at this time). D/W Dr. Lucas, accepts admission to [facility]. Departure - Departure Disposition: ED Place in Observation Clinical Impression: Kidney transplant recipient UTI (urinary tract infection) Qualifiers: Urinary tract infection type: acute cystitis Hematuria presence: without hematuria Qualified Code(s): N30.00 - Acute cystitis without hematuria Discharge Date/Time: 07/25/20 01:00
[2020-07-24 21:42] LABS: BILIRUBIN,URINE NEGATIVE (NEGATIVE); CLARITY,URINE SL. CLOUDY (CLEAR); GLUCOSE, URINE (UA) NEGATIVE (NEGATIVE); KETONES,URINE (UA) NEGATIVE (NEGATIVE); LEUKOCYTE ESTERASE, URINE MODERATE (NEGATIVE); NITRITE,URINE NEGATIVE (NEGATIVE); OCCULT BLOOD,URINE TRACE-INTA (NEGATIVE); PROTEIN,URINE TRACE mg/dL (NEGATIVE); UROBILINOGEN,URINE 0.2 (NORMAL) E.U./dL (NORMAL)
[2020-07-24 21:47] LABS: BACTERIA,URINE Many /HPF (None Seen); RBC,URINE 0-5 /HPF (0-5); SQUAMOUS EPITHELIAL CELL,UR FEW Squamous (<= Few); WBC,URINE >25 /HPF (0-5)
[2020-07-24 21:54] LABS: BASOPHILS % (AUTO) 0.3 %; EOSINOPHILS % (AUTO) 0.3 %; HCT - HEMATOCRIT 28.9 % (37.0-47.0); HGB - HEMOGLOBIN 8.4 g/dL (12.0-16.0); LYMPHOCYTES # (AUTO) 1.1 10^3/uL (1.5-3.5); LYMPHOCYTES % (AUTO) 7.4 %; MEAN CORPUSCULAR HEMOGLOBIN 19.2 pg (27.0-31.0); MEAN CORPUSCULAR HGB CONC 29.1 g/dL (32.0-36.0); MEAN PLATELET VOLUME 10.7 fL (7.9-10.8); MONOCYTES # (AUTO) 1.2 10^3/uL (0.0-1.0); MONOCYTES % (AUTO) 8.1 %; NEUTROPHILS % (AUTO) 82.1 %; PLT - PLATELET COUNT 461 10^3/uL (130-450); RED BLOOD COUNT 4.38 10^6/uL (4.20-5.40); RED CELL DISTRIBUTION WIDTH 16.6 % (12.0-15.0); WHITE BLOOD COUNT 14.6 x10^3/uL (4.8-10.8)
[2020-07-24 21:56] LABS: SLIDE REVIEW? Indicated
[2020-07-24 22:08] LABS: ALBUMIN 3.5 g/dL (3.2-5.5); ALBUMIN/GLOBULIN RATIO 0.9 (1.0-2.2); ALKALINE PHOSPHATASE 48 IU/L (42-121); ALT ALANINE AMINOTRANSFERASE < 10 IU/L (10-60); AST ASPARTATE AMINOTRANSFERASE 10 IU/L (10-42); BILIRUBIN,TOTAL 0.7 mg/dL (0.2-1.0); BUN - BLOOD UREA NITROGEN 25 mg/dL (6-20); CALCIUM 10.5 mg/dL (8.5-10.3); CARBON DIOXIDE - CO2 18 mmol/L (21-32); CHLORIDE 107 mmol/L (101-111); CREATININE 1.7 mg/dL (0.4-1.0); GFR - MDRD 31 (>89); GLUCOSE 141 mg/dL (70-100); LIPASE 19 U/L (22-51); MAGNESIUM 2.5 mg/dL (1.7-2.8); SODIUM 133 mmol/L (135-145); TOTAL PROTEIN 7.5 g/dL (6.7-8.2)
[2020-07-24 22:11] LABS: PLATELET ESTIMATE, MANUAL INCREASED (>450,000) (NORMAL); PLATELET MORPHOLOGY NORMAL APPEARANCE (NORMAL); RBC MORPHOLOGY (MULTIPLE) 1+ MICROCYTOSIS (NORMAL); WBC MORPHOLOGY (MULTIPLE) NORMAL APPEARANCE (NORMAL)
[2020-07-24 22:51] LABS: B. PARAPERTUSSIS- RESP PCR PAN NOT DETECTED; B. PERTUSSIS- RESP PCR PANEL NOT DETECTED; C. PNEUMONIAE- RESP PCR PANEL NOT DETECTED; CORONAVIRUS 229E-RESP PCR NOT DETECTED; CORONAVIRUS HKU1-RESP PCR NOT DETECTED; CORONAVIRUS NL63-RESP PCR NOT DETECTED; CORONAVIRUS OC43-RESP PCR NOT DETECTED; HUMAN METAPNEUMOVIRUS NOT DETECTED; INFLUENZA A- RESP PCR PANEL NOT DETECTED; INFLUENZA B - RESP PCR PANEL NOT DETECTED; M. PNEUMONIAE- RESP PCR PANEL NOT DETECTED; PARAINFLUENZA VIRUS 1 NOT DETECTED; PARAINFLUENZA VIRUS 2 NOT DETECTED; PARAINFLUENZA VIRUS 3 NOT DETECTED; PARAINFLUENZA VIRUS 4 NOT DETECTED; RHINOVIRUS/ENTEROVIRUS NOT DETECTED; RSV- RESP PCR PANEL NOT DETECTED; SARS-CoV-2 -RESP PCR PANEL NOT DETECTED
[2020-07-24] MEDS ORDERED: PROCHLORPERAZINE 10 MG/2 ML VIAL IVP PRN (23:47)
[2020-07-24] MEDS ORDERED: SODIUM CHLORIDE FLUSH 0.9% 10 ML SYRINGE IVP PRN (23:47)
[2020-07-24] MEDS ORDERED: ONDANSETRON 4 MG/2 ML VIAL IVP PRN (23:47)
[2020-07-24] MEDS ORDERED: ACETAMINOPHEN 325 MG TABLET PO PRN (23:47)
[2020-07-24] MEDS ORDERED: oxyCODONE 5 MG TABLET PO PRN (23:47)
[2020-07-24] MEDS ORDERED: cefTRIAXone 1 GM in SODIUM CHLORIDE 0.9% MINIBAG 100 ML IV STA (23:52)
[2020-07-24] MEDS ORDERED: cefTRIAXone 1 GM VIAL ONE (23:54)
--- NOTE | 2020-07-24 23:59 | HISTORY & PHYSICAL EXAMINATION ---
Chief Complaint - Chief Complaint Chief Complaint: fatigue, sleepiness and fever History of Present Illness - Admitted From Admitted From:: Home via EMS - History Obtained From Records Reviewed: [facility] History obtained from: Dr. Ferguson and patient Exam Limitations: none` - History of Present Illness HPI Comment/Other: She is a 60-year-old Armenian female who progressed with chronic kidney disease and ended up having a renal transplant in July 2019. She does have a previous history of UTIs. She is compliant with her immunosuppressive medications but has not been on her prophylactic antibiotics or antifungals for quite some time at the instruction of her deadener. She presents with 2 to 3 days of malaise, increasing sleepiness and wanting to just be in bed all the time. While she has been eating and drinking, her p.o. intake is much reduced according to the son's history. Today she developed suprapubic tenderness with cloudy urine. As such the family called EMS for unclear reasons. There was no urgency, hemodynamic instability, syncope but they called an ambulance. At the scene her temperature was 102. Accu-Chek was 143. She was evaluated by Dr. Ferguson. Temperature was 37.3 in the emergency room but was high as high as 102 by EMS at the scene where she received Tylenol. Blood pressure 160/60. Heart rate 78. 99% on room air. Physical examination was unremarkable other than for mild suprapubic tenderness. Sodium is chronically low and she is 133. BUN 25 and creatinine 1.7. Baseline creatinine is 1.2 as of May. Random glucose 141. Lactic acid 1.2. Calcium 10.5. White cell co unt is elevated at 14.6 thousand. Hemoglobin reduced at 8.4, hematocrit 28.9. Platelets 461. Urinalysis had moderate leukocyte Estrace, greater than 25 white cells, few squamous cells, many bacteria. Nitrite negative. pH is 6.0. Dr. Ferguson initial thought was to treat her as a cystitis and give her antibiotics with IV fluids and send her home. However the slight rise in creatinine and her renal transplant status gave him pause. He consulted with her deadener. They agree that the slight rise in creatinine is concerning in a patient with a kidney transplant. As such nephrology would like her placed in observation. Receive IV fluids overnight. She is already received antibiotics in the morning. If her creatinine comes down in the morning she will most likely be sent home. If creatinine goes up, nephrology must be notified. History - Past Medical History Cardiovascular: reports: Hypertension, High cholesterol Respiratory: reports: None Neuro: reports: None Endocrine/Autoimmune: reports: Type 2 diabetes GI: reports: Other (appendicitis 10/2015) [employer]: reports: Other () : reports: Dialysis, Renal insuffiency (Flash 07/2015 due to rhabdo>CKD>Stage V and dialysis>renal transplant 07/2019. Followed by MD Douglas @ [facility]. 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 Mom had DM, HTN. 3 siblings and 2 . One of stroke, one of unknown reasons. Sister has DM. 3 sons all have HTN but no DM, CAD, thyroid, cancer Living arrangement: At home Living Situation: With spouse/s.o., With family Social History Notes: Patient is . Originally from the [facility]. Met her there. 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 Living on [facility] with her who is retired [employer] and her son. 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 Her son lives with them and he takes care of her. Used to smoke a third of a pack per day for 20 years and quit in 2016. No history of drug or alcohol abuse - Substance History Use: Uses substance without health or social issues: NONE Abuse: Recurrent use of substance despite neg consequences: NONE Dependence: Experiences withdrawal or developed tolerances: NONE - POLST Patient has POLST: No POLST Status: Full Code Meds/Allgy - Home Medications Home Medications: Ambulatory Orders Medication Instructions Recorded Confirmed Aspirin 81 mg PO DAILY 11/28/17 07/24/20 Cinacalcet HCl [Sensipar] 60 mg PO DAILY 03/26/20 07/24/20 Famotidine [Acid-Pep] 20 mg PO DAILY 03/26/20 07/24/20 Insulin Glargine [Lantus Solostar] 31 units SUBQ DAILY 03/26/20 07/24/20 Insulin Lispro [Humalog] 1 units SUBQ DAILY 03/26/20 07/24/20 Mycophenolate Sodium [Myfortic] 180 mg PO BID 03/26/20 07/24/20 Prednisone 5 mg PO DAILY 03/26/20 07/24/20 Tacrolimus [Prograf] 2.5 mg PO BID 03/26/20 07/24/20 carvediloL [Coreg] 12.5 mg PO BID 03/26/20 07/24/20 gemfibroziL [Lopid] 600 mg PO BID 03/26/20 07/24/20 - Allergies Allergies/Adverse Reactions: Allergies Allergy/AdvReac Type Severity Reaction Status Date / Time No Known Drug Allergies Allergy Verified 07/24/20 21:35 Review of Systems - Other Findings Other Findings: Review of systems unable to be obtained due to her encephalopathy that is still present after antibiotics and IV fluids. 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 Chronic daily fatigue, chronic daily low back pain. Still able to dress herself, feed herself. He states that he does not recall her coughing, wheezing, hemoptysis. No chest pain, palpitations. No edema. No abdominal nash n, diarrhea as far as he knows. He is with her every day. When she is sick she gets very confused and sleepy. When she is not sick he says she is very alert, oriented, without deficits. No history of syncope or seizures. Prior Level of Functionality: Prior to the last 3 days she was dressing herself, feeding herself, no use of durable medical equipment. She does not drive anymore because of her blindness but is able to take care of herself. She does do household choresShe used to garden all the time. A lot of her energy is significantly diminished since March of this year when she had a bad urinary tract infection. Exam - Vital Signs Reviewed Vital Signs: Yes Vital Signs: Vital Signs x48h Temp Pulse Resp BP Pulse Ox 07/24/20 23:06 75 24 130/56 L 100 07/24/20 21:56 75 15 157/65 H 98 07/24/20 21:32 37.3 C 78 15 160/60 H 99 07/24/20 21:30 15 - Physical Exam General Appearance: positive: No acute distress, Lethargic (Slow slurred speech in this 5 foot 1 inch Armenian female who weighs 53 kg, son at the bedside.) Eyes Bilateral: positive: EOMI, Conjunctivae nml, No scleral icterus, Other (Pupils are irregular due to previous cataract surgery but are reactive. Pterygium in the left eye.) ENT: positive: Dry mucous membranes. negative: Oral lesions Neck: positive: No JVD. negative: Lymphadenopathy (R), Lymphadenopathy (L), Stiff neck Respiratory: positive: No respiratory distress. negative: Wheezes, Rales, Rhonchi Cardiovascular: positive: Regular rate & rhythm, Systolic murmur. negative: Gallop/S4, Friction rub Peripheral Pulses: positive: 1+ Abdomen: positive: No organomegaly, Nml bowel sounds, No distention, Tenderness (Over the suprapubic area.). negative: Guarding, Rebound Back: negative: CVA tenderness (R), CVA tenderness (L) Skin: positive: Warm, Dry, Pallor. negative: Diaphoresis Extremities: positive: Full ROM, No pedal edema Neurologic/Psychiatric: positive: CN's nml (2-12), Disoriented to place, Disoriented to time, Slurred/abnml speech (Encephalopathic with slurred speech). negative: Motor nml (Diffuse generalized weakness.) Conclusion/Plan - Problem List (1) Acute kidney injury superimposed on chronic kidney disease Conclusion/Plan: That is her main reason for placement in observation. Concern is that she may be having rejection or infection. Plan: Observation status IV fluids Antibiotics Creatinine in the morning If creatinine has not improved, consider CT or ultrasound to evaluate for hydro and call nephrology. At this time there is no flank pain, or reason to suspect obstruction. (2) Cystitis Conclusion/Plan: In the past her urine has been negative on culture in 2015, but in March 2020 she grew out Serratia. It was resistant to cefazolin and nitrofurantoin but sensitive to all else. There is a low risk of cystitis due to cytomegalovirus in a patient who is a solid organ transplant. At this time no antiviral recommended. Plan: At this time nephrology concurs with Dr. Ferguson about the treatment of acute cystitis with Rocephin. That has been given in the emergency room and will be continued tomorrow. In the outpatient setting the patient can be discharged on either Bactrim or Macrobid. Fosfomycin is less effective than nitrofurantoin but also can be considered (3) Kidney transplant recipient Conclusion/Plan: Continue her medications while she is inpatient. If she becomes septic or progresses with her infection the may need to be held temporarily. Would need to discuss with nephrology. (4) Dehydration Conclusion/Plan: Seen on oral mucosa, rising creatinine, and a history of decreased p.o. intake. Plan: Lactated Ringer's Encourage p.o. intake (5) Diabetes Conclusion/Plan: At home she is on Lantus and lispro. Those will be resumed here. Check A1c in the morning. Qualifiers: Diabetes mellitus type: type 2 Diabetes mellitus manager intermediate insulin use: with detention use Diabetes mellitus complication status: with kidney complications Diabetes mellitus complication detail: with other kidney complication Qualified Code(s): E11.29 - Type 2 diabetes mellitus with other diabetic kidney complication; Z79.4 - MCC (current) use of insulin (6) Iron deficiency anemia Conclusion/Plan: Listed as a problem and she is quite anemic. She could have anemia of chronic disease. She is not on iron in the outpatient setting. Would defer to her deadener for work-up. Would transfuse if she is less than 7 g. Qualifiers: Iron deficiency anemia type: other iron deficiency Qualified Code(s): D50.8 - Other iron deficiency anemias (7) Hyponatremia Conclusion/Plan: Chronic and ongoing for her. She did have one admission for hyponatremia while she was on diuretic therapy. She is currently not on diuretics. Plan: Continue to monitor. Use lactated Ringer's. (8) Secondary hyperparathyroidism of renal origin Conclusion/Plan: Continue Sensipar from home. She is hypercalcemic. - Lab Results Lab results reviewed: Yes Fish Bones: 07/24/20 21:46 07/24/20 21:46 - Diagnostic Imaging Results Diagnostic Imaging Results: positive: Final report reviewed - EKG Results EKG Interpreted Independently: No Core Measures - Anticipated LOS I expect patient to be DC'd or transferred within 96 hours.: Yes - DVT/VTE - Prophylaxis VTE/DVT Device ordered at admit?: Yes
[2020-07-25] MEDS: LACTATED RINGERS 1,000 ML IV SCH ×3 (00:58→21:22)
[2020-07-25] MEDS: SODIUM CHLORIDE FLUSH 0.9% 10 ML SYRINGE IVP SCH ×3 (01:43→17:02)
[2020-07-25 05:17] LABS: BASOPHILS % (AUTO) 0.3 %; EOSINOPHILS % (AUTO) 0.3 %; HCT - HEMATOCRIT 26.5 % (37.0-47.0); HGB - HEMOGLOBIN 7.9 g/dL (12.0-16.0); LYMPHOCYTES # (AUTO) 1.6 10^3/uL (1.5-3.5); LYMPHOCYTES % (AUTO) 12.2 %; MEAN CORPUSCULAR HEMOGLOBIN 19.3 pg (27.0-31.0); MEAN CORPUSCULAR HGB CONC 29.8 g/dL (32.0-36.0); MEAN CORPUSCULAR VOLUME 64.6 fL (81.0-99.0); MEAN PLATELET VOLUME 10.5 fL (7.9-10.8); MONOCYTES # (AUTO) 1.2 10^3/uL (0.0-1.0); MONOCYTES % (AUTO) 9.3 %; NEUTROPHILS # (AUTO) 9.9 10^3/uL (1.5-6.6); PLT - PLATELET COUNT 410 10^3/uL (130-450)
[2020-07-25 05:22] LABS: CALCIUM 9.8 mg/dL (8.5-10.3); CREATININE 1.6 mg/dL (0.4-1.0); POTASSIUM 3.7 mmol/L (3.5-5.0)
[2020-07-25 05:36] LABS: PLATELET ESTIMATE, MANUAL NORMAL (130-450,000) (NORMAL); PLATELET MORPHOLOGY NORMAL APPEARANCE (NORMAL); RBC MORPHOLOGY (MULTIPLE) 1+ MICROCYTOSIS (NORMAL)
[2020-07-25 05:37] LABS: SLIDE REVIEW? Indicated; WBC MORPHOLOGY (MULTIPLE) NORMAL APPEARANCE (NORMAL)
--- NOTE | 2020-07-25 07:34 | PHARMACY PROGRESS NOTE ---
- Best Possible Medication History Admit Date and Time: 07/24/20 4810 Processed by: Nursing Medication History completed: Yes Patient Interview: Completed Secondary Source(s): Pharmacy records, Insurance records As the person ultimately responsible for medication therapy, providers are able to order a medication from an existing home medication list in [facility] via the "Reconcile Routine" prior to Confirmation of that medication by manager client support. Such practice is discouraged except when the physician, in their clinical judgment, deems that a medical need exists for a medication without regard to previous use.
--- NOTE | 2020-07-25 08:03 | CT Report ---
PROCEDURE: Abdomen/Pelvis WO INDICATIONS: pyelo TECHNIQUE: Noncontrast 5 mm thick sections acquired from the diaphragms to the symphysis. 5 mm coronal and sagi ttal reformats were then performed. For radiation dose reduction, the following was used: automated exposure control, adjustment of mA and/or kV according to patient size. COMPARISON: 10/31/15 FINDINGS: Image quality: Excellent. ABDOMEN: Lung bases: Lung bases are clear. Heart size is within normal limits without pericardial effusion. Th ere are vascular calcifications. Inferior esophagus is unremarkable. Solid organs: Liver and spleen are normal in size. Stable calcification within the left lumbar live r, likely vascular in origin. Gallbladder is unremarkable. Pancreas is normal in contours. No adren al nodules. The kidneys are atrophic. Mild amount of perinephric inflammation. No evidence of hydrone phrosis. There are likely vascular calcifications without urinary tract stones. Ureters are normal in caliber. Patient is status post renal transplant with transplant noted in the right lower abdomen/pe lvis. There is edema noted surrounding the transplant kidney and appears edematous. Peritoneum and bowel: Unenhanced bowel loops demonstrate normal wall thickness and caliber. No free fluid or air. Nodes and vessels: No retroperitoneal or mesenteric adenopathy by size criteria. Aorta and inferior vena cava are normal in caliber. Diffuse vascular calcifications throughout the abdomen and pelvis. Miscellaneous: No ventral hernias. PELVIS: Genitourinary: Bladder wall thickness is normal. No suspicious adnexal mass. Likely vascular calcif ications noted throughout the uterus and adnexa. Miscellaneous: No inguinal hernias or adenopathy. Bones: No suspicious bony lesions. Stable sclerosis within the right iliac, likely representing [place]. No vertebral body compression fractures. IMPRESSION: Edema noted adjacent to the transplanted kidney within the right lower abdomen/pelvis concerning for pyelonephritis in the correct clinical setting. Reviewed by: Sudheer Monte DO on 07/25/2020 7:01 AM SALTY Approved by: Sudheer Monte DO on 07/25/2020 7:01 AM SALTY Station ID: [id number]
--- NOTE | 2020-07-25 08:55 | XRAY Report ---
PROCEDURE: Chest 1 View X-Ray INDICATIONS: chest pain TECHNIQUE: One view of the chest was acquired. COMPARISON: 03/26/2020; same-day CT abdomen and pelvis FINDINGS: Surgical changes and devices: None. Lungs and pleura: Mild blunting of the left costophrenic angle likely representing atelectasis. No fo che consolidation, pneumothorax, or large lung pleural effusion. Mediastinum: Mediastinal contours appear normal. Heart size is normal. Bones and chest wall: No suspicious bony lesions. Overlying soft tissues appear unremarkable. IMPRESSION: No evidence of an acute cardiopulmonary abnormality. Reviewed by: Sudheer Monte DO on 07/25/2020 7:53 AM SALTY Approved by: Sudheer Monte DO on 07/25/2020 7:53 AM SALTY Station ID: [id number]
[2020-07-25] MEDS ORDERED: MYCOPHENOLATE SODIUM 180 MG PO SCH (09:00)
[2020-07-25] MEDS ORDERED: CINACALCET HCL 30 MG PO SCH (09:00)
[2020-07-25] MEDS: CEFEPIME 1 GM in SODIUM CHLORIDE 0.9% MINIBAG 100 ML IV SCH ×2 (09:33→17:01)
[2020-07-25] MEDS: INSULIN GLARGINE 300 UNIT/3 ML PEN SUBQ SCH (09:34)
[2020-07-25] MEDS: ASPIRIN CHEW 81 MG TABLET PO SCH (09:42)
[2020-07-25] MEDS: predniSONE 5 MG TABLET PO SCH (09:42)
[2020-07-25] MEDS: carvediloL 12.5 MG TABLET PO SCH ×2 (09:44→21:07)
[2020-07-25] MEDS: TACROLIMUS 0.5 MG CAPSULE PO SCH ×2 (09:45→21:08)
[2020-07-25] MEDS ORDERED: VANCOMYCIN INJ 1 GM, VANCOMYCIN INJ 250 MG in SODIUM CHLORIDE 0.9% 250 ML IV ONE (10:00)
--- NOTE | 2020-07-25 10:38 | PROVIDER PROGRESS NOTE ---
Subjective - Prog Note Date Prog Note Date: 07/25/20 - Subjective Subjective: She reports feeling a little better today. Still has dysuria and suprapubic pain. No flank pain. Denies nausea or vomiting. Current Medications - Current Medications Current Medications: Active Medications Acetaminophen (Acetaminophen 325 Mg Tablet) 650 mg PO Q4HR PRN PRN Reason: Pain 1 to 4 Last Admin: 07/25/20 01:41 Dose: 650 mg Documented by: Aspirin (Aspirin Chew 81 Mg Tablet) 81 mg PO DAILY [facility] Last Admin: 07/25/20 09:42 Dose: 81 mg Documented by: Carvedilol (Carvedilol 12.5 Mg Tablet) 12.5 mg PO BID [facility] Last Admin: 07/25/20 09:44 Dose: 12.5 mg Documented by: Lactated Ringer's (Lr) 1,000 mls @ 100 mls/hr IV .Q10H [facility] Last Infusion: 07/25/20 10:11 Dose: 0 mls/hr Documented by: Cefepime HCl 1 gm/ Sodium (Chloride) 100 mls @ 200 mls/hr IV Q8H [facility] Last Infusion: 07/25/20 10:05 Dose: Infused Documented by: Vancomycin HCl 1 gm/Vancomycin HCl 250 mg/ Sodium Chloride 250 mls @ 167 mls/hr IV ONCE ONE Stop: 07/25/20 11:29 Last Admin: 07/25/20 10:08 Dose: 167 mls/hr Documented by: Vancomycin HCl 1 gm/ Sodium (Chloride) 250 mls @ 167 mls/hr IV Q24H [facility] Insulin Aspart (Insulin Aspart 300 Unit/3 Ml Pen) 1 - 9 unit SUBQ 0800,1200,1700,2100 [facility]; Protocol Insulin Glargine (Insulin Glargine 300 Unit/3 Ml Pen) 31 unit SUBQ DAILY [facility] Last Admin: 07/25/20 09:34 Dose: 31 unit Documented by: Ondansetron HCl (Ondansetron 4 Mg/2 Ml Vial) 4 mg IVP Q6HR PRN PRN Reason: Nausea / Vomiting Oxycodone HCl (Oxycodone 5 Mg Tablet) 5 mg PO Q4HR PRN PRN Reason: Pain 5 to 7 Cinacalcet Hcl [ Sensipar] 30 Mg Tablet 2 each PO DAILY [facility] Last Admin: 07/25/20 09:34 Dose: Not Given Documented by: Mycophenolate Sodium [Myfortic] 180 Mg Tablet.Dr 1 each PO BID [facility] Last Admin: 07/25/20 09:34 Dose: Not Given Documented by: Prednisone (Prednisone 5 Mg Tablet) 5 mg PO DAILY [facility] Last Admin: 07/25/20 09:42 Dose: 5 mg Documented by: Prochlorperazine Edisylate (Prochlorperazine 10 Mg/2 Ml Vial) 10 mg IVP Q6HR PRN PRN Reason: Nausea / Vomiting Sodium Chloride (Sodium Chloride Flush 0.9% 10 Ml Syringe) 10 ml IVP PRN PRN PRN Reason: NEEDED PER PROVIDER ORDERS Sodium Chloride (Sodium Chloride Flush 0.9% 10 Ml Syringe) 10 ml IVP 0100,0900,1700 [facility] Last Admin: 07/25/20 09:33 Dose: Not Given Documented by: Tacrolimus (Tacrolimus 0.5 Mg Capsule) 2.5 mg PO BID [facility] Last Admin: 07/25/20 09:45 Dose: 2.5 mg Documented by: Aspirin 81 mg PO DAILY 11/28/17 Cinacalcet HCl [Sensipar] 60 mg PO DAILY 03/26/20 Famotidine [Acid-Pep] 20 mg PO DAILY 03/26/20 Insulin Glargine [Lantus Solostar] 31 units SUBQ DAILY 03/26/20 Insulin Lispro [Humalog] 1 units SUBQ DAILY 03/26/20 Mycophenolate Sodium [Myfortic] 180 mg PO BID 03/26/20 Prednisone 5 mg PO DAILY 03/26/20 Tacrolimus [Prograf] 2.5 mg PO BID 03/26/20 carvediloL [Coreg] 12.5 mg PO BID 03/26/20 gemfibroziL [Lopid] 600 mg PO BID 03/26/20 Objective - Vital Signs/Intake & Output Reviewed Vital Signs: Yes Vital Signs: Vital Signs x48h Temp Pulse Pulse Resp BP Pulse Ox 07/25/20 09:40 62 139/94 H 07/25/20 08:00 36.4 C L 12 120/56 L 100 07/25/20 03:41 39.3 C H 74 20 100 07/25/20 03:40 37.8 C 17 118/55 L 98 Intake & Output: Intake & Output 07/22/20 07/23/20 07/24/20 07/25/20 23:59 23:59 23:59 23:59 Intake Total 10 1114.999 Output Total 225 340 Balance -215 774.999 - Objective General Appearance: positive: No acute distress, Alert Eyes Bilateral: positive: Normal inspection, Conjunctivae nml Neck: positive: Nml inspection Respiratory: positive: No respiratory distress. negative: Wheezes, Rales Cardiovascular: positive: Regular rate & rhythm, No murmur. negative: Tachycardia Abdomen: positive: Non-tender, Nml bowel sounds, No distention, Other (Transplanted kidney palpable in RLQ. Prior incision noted.). negative: Tenderness Back: negative: CVA tenderness (R), CVA tenderness (L) Skin: positive: Warm, Dry Extremities: positive: No pedal edema Neurologic/Psychiatric: negative: Disoriented to person, Disoriented to place - Lab Results Fish Bones: 07/25/20 05:05 07/25/20 05:05 Other Labs: Lab Results x24hrs 07/25/20 07/25/20 07/24/20 Range/Units 05:05 05:05 21:50 WBC 13.0 H (4.8-10.8) x10^3/uL RBC 4.10 L (4.20-5.40) 10^6/uL Hgb 7.9 L (12.0-16.0) g/dL Hct 26.5 L (37.0-47.0) % MCV 64.6 L (81.0-99.0) fL MCH 19.3 L (27.0-31.0) pg MCHC 29.8 L (32.0-36.0) g/dL RDW 16.0 H (12.0-15.0) % Plt Count 410 (130-450) 10^3/uL MPV 10.5 (7.9-10.8) fL Neut # (Auto) 9.9 H (1.5-6.6) 10^3/uL Lymph # (Auto) 1.6 (1.5-3.5) 10^3/uL [place] # (Auto) 1.2 H (0.0-1.0) 10^3/uL Eos # (Auto) 0.0 (0.0-0.7) 10^3/uL Baso # (Auto) 0.0 (0.0-0.1) 10^3/uL Absolute Nucleated RBC 0.00 x10^3/uL Nucleated RBC % 0.0 /100WBC Manual Slide Review Indicated WBC Morphology NORMAL APPEARANCE (NORMAL) Platelet Estimate NORMAL (130-450,000) (NORMAL) Platelet Morphology NORMAL APPEARANCE (NORMAL) RBC Morph Micro Appear 1+ MICROCYTOSIS (NORMAL) Sodium 133 L (135-145) mmol/L Potassium 3.7 (3.5-5.0) mmol/L Chloride 109 (101-111) mmol/L Carbon Dioxide 17 L (21-32) mmol/L Anion Gap 7.0 (6-13) BUN 26 H (6-20) mg/dL Creatinine 1.6 H (0.4-1.0) mg/dL Estimated GFR (MDRD) 33 L (>89) Glucose 157 H (70-100) mg/dL Lactic Acid (0.5-2.2) mmol/L Calcium 9.8 (8.5-10.3) mg/dL Magnesium (1.7-2.8) mg/dL Total Bilirubin (0.2-1.0) mg/dL AST (10-42) IU/L ALT (10-60) IU/L Alkaline Phosphatase (42-121) IU/L Total Protein (6.7-8.2) g/dL Albumin (3.2-5.5) g/dL Globulin (2.1-4.2) g/dL Albumin/Globulin Ratio (1.0-2.2) Lipase (22-51) U/L Urine Color Urine Clarity (CLEAR) Urine pH (5.0-7.5) PH Ur Specific [place] (1.002-1.030) Urine Protein (NEGATIVE) mg/dL Urine Glucose (UA) (NEGATIVE) mg/dL Urine Ketones (NEGATIVE) mg/dL Urine Occult Blood (NEGATIVE) Urine Nitrite (NEGATIVE) Urine Bilirubin (NEGATIVE) Urine Urobilinogen (NORMAL) E.U./dL Ur Leukocyte Esterase (NEGATIVE) Urine RBC (0-5) /HPF Urine WBC (0-5) /HPF Ur Squamous Epith Cells (<= Few) Urine Bacteria (None Seen) /HPF Ur Microscopic Review Urine Culture Comments Nasal Adenovirus (PCR) NOT DETECTED Nasal B. parapertussis DNA (PCR) NOT DETECTED Nasal Coronavir 229E PCR NOT DETECTED Nasal Coronavir HKU1 PCR NOT DETECTED Nasal Coronavir NL63 PCR NOT DETECTED Nasal Coronavir OC43 PCR NOT DETECTED Nasal Enterovir/Rhinovir PCR NOT DETECTED Nasal Influenza B PCR NOT DETECTED Nasal Influenza A PCR NOT DETECTED Nasal Parainfluen 1 PCR NOT DETECTED Nasal Parainfluen 2 PCR NOT DETECTED Nasal Parainfluen 3 PCR NOT DETECTED Nasal Parainfluen 4 PCR NOT DETECTED Nasal RSV (PCR) NOT DETECTED Nasal B.pertussis DNA PCR NOT DETECTED Nasal C.pneumoniae (PCR) NOT DETECTED Juan Human Metapneumo PCR NOT DETECTED Nasal M.pneumoniae (PCR) NOT DETECTED Nasal SARS-CoV-2 (PCR) NOT DETECTED 07/24/20 07/24/20 07/24/20 Range/Units 21:46 21:46 21:46 WBC 14.6 H (4.8-10.8) x10^3/uL RBC 4.38 (4.20-5.40) 10^6/uL Hgb 8.4 L (12.0-16.0) g/dL Hct 28.9 L (37.0-47.0) % MCV 66.0 L (81.0-99.0) fL MCH 19.2 L (27.0-31.0) pg MCHC 29.1 L (32.0-36.0) g/dL RDW 16.6 H (12.0-15.0) % Plt Count 461 H (130-450) 10^3/uL MPV 10.7 (7.9-10.8) fL Neut # (Auto) 12.0 H (1.5-6.6) 10^3/uL Lymph # (Auto) 1.1 L (1.5-3.5) 10^3/uL [place] # (Auto) 1.2 H (0.0-1.0) 10^3/uL Eos # (Auto) 0.0 (0.0-0.7) 10^3/uL Baso # (Auto) 0.0 (0.0-0.1) 10^3/uL Absolute Nucleated RBC 0.00 x10^3/uL Nucleated RBC % 0.0 /100WBC Manual Slide Review Indicated WBC Morphology NORMAL APPEARANCE (NORMAL) Platelet Estimate INCREASED (>450,000) (NORMAL) Platelet Morphology NORMAL APPEARANCE (NORMAL) RBC Morph Micro Appear 1+ MICROCYTOSIS (NORMAL) Sodium 133 L (135-145) mmol/L Potassium 4.0 (3.5-5.0) mmol/L Chloride 107 (101-111) mmol/L Carbon Dioxide 18 L (21-32) mmol/L Anion Gap 8.0 (6-13) BUN 25 H (6-20) mg/dL Creatinine 1.7 H (0.4-1.0) mg/dL Estimated GFR (MDRD) 31 L (>89) Glucose 141 H (70-100) mg/dL Lactic Acid 1.2 (0.5-2.2) mmol/L Calcium 10.5 H (8.5-10.3) mg/dL Magnesium 2.5 (1.7-2.8) mg/dL Total Bilirubin 0.7 (0.2-1.0) mg/dL AST 10 (10-42) IU/L ALT < 10 L (10-60) IU/L Alkaline Phosphatase 48 (42-121) IU/L Total Protein 7.5 (6.7-8.2) g/dL Albumin 3.5 (3.2-5.5) g/dL Globulin 4.0 (2.1-4.2) g/dL Albumin/Globulin Ratio 0.9 L (1.0-2.2) Lipase 19 L (22-51) U/L Urine Color Urine Clarity (CLEAR) Urine pH (5.0-7.5) PH Ur Specific [place] (1.002-1.030) Urine Protein (NEGATIVE) mg/dL Urine Glucose (UA) (NEGATIVE) mg/dL Urine Ketones (NEGATIVE) mg/dL Urine Occult Blood (NEGATIVE) Urine Nitrite (NEGATIVE) Urine Bilirubin (NEGATIVE) Urine Urobilinogen (NORMAL) E.U./dL Ur Leukocyte Esterase (NEGATIVE) Urine RBC (0-5) /HPF Urine WBC (0-5) /HPF Ur Squamous Epith Cells (<= Few) Urine Bacteria (None Seen) /HPF Ur Microscopic Review Urine Culture Comments Nasal Adenovirus (PCR) Nasal B. parapertussis DNA (PCR) Nasal Coronavir 229E PCR Nasal Coronavir HKU1 PCR Nasal Coronavir NL63 PCR Nasal Coronavir OC43 PCR Nasal Enterovir/Rhinovir PCR Nasal Influenza B PCR Nasal Influenza A PCR Nasal Parainfluen 1 PCR Nasal Parainfluen 2 PCR Nasal Parainfluen 3 PCR Nasal Parainfluen 4 PCR Nasal RSV (PCR) Nasal B.pertussis DNA PCR Nasal C.pneumoniae (PCR) Juan Human Metapneumo PCR Nasal M.pneumoniae (PCR) Nasal SARS-CoV-2 (PCR) 07/24/20 Range/Units 21:20 WBC (4.8-10.8) x10^3/uL RBC (4.20-5.40) 10^6/uL Hgb (12.0-16.0) g/dL Hct (37.0-47.0) % MCV (81.0-99.0) fL MCH (27.0-31.0) pg MCHC (32.0-36.0) g/dL RDW (12.0-15.0) % Plt Count (130-450) 10^3/uL MPV (7.9-10.8) fL Neut # (Auto) (1.5-6.6) 10^3/uL Lymph # (Auto) (1.5-3.5) 10^3/uL [place] # (Auto) (0.0-1.0) 10^3/uL Eos # (Auto) (0.0-0.7) 10^3/uL Baso # (Auto) (0.0-0.1) 10^3/uL Absolute Nucleated RBC x10^3/uL Nucleated RBC % /100WBC Manual Slide Review WBC Morphology (NORMAL) Platelet Estimate (NORMAL) Platelet Morphology (NORMAL) RBC Morph Micro Appear (NORMAL) Sodium (135-145) mmol/L Potassium (3.5-5.0) mmol/L Chloride (101-111) mmol/L Carbon Dioxide (21-32) mmol/L Anion Gap (6-13) BUN (6-20) mg/dL Creatinine (0.4-1.0) mg/dL Estimated GFR (MDRD) (>89) Glucose (70-100) mg/dL Lactic Acid (0.5-2.2) mmol/L Calcium (8.5-10.3) mg/dL Magnesium (1.7-2.8) mg/dL Total Bilirubin (0.2-1.0) mg/dL AST (10-42) IU/L ALT (10-60) IU/L Alkaline Phosphatase (42-121) IU/L Total Protein (6.7-8.2) g/dL Albumin (3.2-5.5) g/dL Globulin (2.1-4.2) g/dL Albumin/Globulin Ratio (1.0-2.2) Lipase (22-51) U/L Urine Color YELLOW Urine Clarity SL. CLOUDY (CLEAR) Urine pH 6.0 (5.0-7.5) PH Ur Specific [place] 1.020 (1.002-1.030) Urine Protein TRACE (NEGATIVE) mg/dL Urine Glucose (UA) NEGATIVE (NEGATIVE) mg/dL Urine Ketones NEGATIVE (NEGATIVE) mg/dL Urine Occult Blood TRACE-INTA (NEGATIVE) Urine Nitrite NEGATIVE (NEGATIVE) Urine Bilirubin NEGATIVE (NEGATIVE) Urine Urobilinogen 0.2 (NORMAL) (NORMAL) E.U./dL Ur Leukocyte Esterase MODERATE H (NEGATIVE) Urine RBC 0-5 (0-5) /HPF Urine WBC >25 H (0-5) /HPF Ur Squamous Epith Cells FEW Squamous (<= Few) Urine Bacteria Many H (None Seen) /HPF Ur Microscopic Review INDICATED Urine Culture Comments INDICATED Nasal Adenovirus (PCR) Nasal B. parapertussis DNA (PCR) Nasal Coronavir 229E PCR Nasal Coronavir HKU1 PCR Nasal Coronavir NL63 PCR Nasal Coronavir OC43 PCR Nasal Enterovir/Rhinovir PCR Nasal Influenza B PCR Nasal Influenza A PCR Nasal Parainfluen 1 PCR Nasal Parainfluen 2 PCR Nasal Parainfluen 3 PCR Nasal Parainfluen 4 PCR Nasal RSV (PCR) Nasal B.pertussis DNA PCR Nasal C.pneumoniae (PCR) Juan Human Metapneumo PCR Nasal M.pneumoniae (PCR) Nasal SARS-CoV-2 (PCR) Sepsis Event Note (H) - Evaluation Current Stage of Sepsis: Sepsis Possible source of Sepsis: positive: Genitourinary - Sepsis Criteria Sepsis Criteria: Recorded Temperature greater than 38.3C or Less than 36C, WBC count greater than 12,000 or less than 4000, Renal: urine output less than 0.5ml/kg/hr for 2 hours or creatinine gr Assessment/Plan - Problem List (1) Sepsis Impression: This is secondary to the pyelonephritis. She remains febrile although her white count is improving. Blood cultures still pending but I suspect she will likely be bacteremic given her significant fevers. We have placed her on vancomycin and cefepime IV today given the evidence of pyelonephritis and her history of a transplanted kidney. We will continue IV antibiotics and gentle IV hydration. Follow-up blood cultures. Daily CBC. (2) Pyelonephritis Impression: This is the cause of her sepsis. CT of the abdomen pelvis without contrast obtained this morning is concerning for pyelonephritis of the transplanted kidney. There is no evidence of obstruction or nephrolithiasis. We have placed her on vancomycin and cefepime instead of ceftriaxone alone given this is a complicated urinary tract infection she has a transplanted kidney. Follow-up urine cultures and blood cultures. (3) Acute kidney injury superimposed on chronic kidney disease Impression: She does have chronic kidney disease even after the transplant last year. Her baseline creatinine is about 1.2. Her creatinine on admission was 1.7 and today it is improved to 1.6. Suspect this may be prerenal injury. CT of the abdomen and pelvis did not reveal any obvious obstruction. We will continue gentle IV hydration. Continue to avoid nephrotoxins. Monitor renal function and urine output. (4) Kidney transplant recipient Impression: She received a kidney transplant in July 2019 at the [facility] for chronic kidney disease secondary to diabetes. She is on Prograf, mycophenolate, prednisone. We have continued these during this hospitalization. I have reached out to the [facility] to discuss with the transplant team regarding dosing of her immunosuppressants given the acute kidney injury and pyelonephritis. (5) Anemia Impression: Her hemoglobin is slightly decreased today at 7.9 compared to 8.4 on admission. She likely has anemia of chronic disease secondary to her kidney disease although there could be component of iron deficiency anemia given her MCV is quite decreased. We will check iron studies and ferritin. She would likely benefit from iron supplementation and she may need erythropoietin on an outpatient basis. We will continue to monitor for evidence of bleeding. Check her stool for occult blood. (6) Insulin dependent diabetes mellitus Impression: Her blood glucose is currently well controlled. We will continue her home Lantus dose and sliding scale. Carb controlled diet.
[2020-07-25] MEDS: INSULIN ASPART 300 UNIT/3 ML PEN SUBQ SCH ×3 (12:05→21:07)
[2020-07-25] MEDS: MYCOPHENOLATE SODIUM 180 MG PO SCH ×2 (12:48→21:06)
[2020-07-25] MEDS: CINACALCET HCL 30 MG PO SCH ×2 (12:48→18:00)
[2020-07-25] MEDS ORDERED: cefTRIAXone 1 GM in SODIUM CHLORIDE 0.9% MINIBAG 100 ML IV SCH (21:00)
[2020-07-26] MEDS: CEFEPIME 1 GM in SODIUM CHLORIDE 0.9% MINIBAG 100 ML IV SCH (01:19)
[2020-07-26] MEDS: SODIUM CHLORIDE FLUSH 0.9% 10 ML SYRINGE IVP SCH ×3 (01:20→16:28)
[2020-07-26 05:20] LABS: BASOPHILS % (AUTO) 0.4 %; EOSINOPHILS # (AUTO) 0.2 10^3/uL (0.0-0.7); EOSINOPHILS % (AUTO) 2.2 %; HGB - HEMOGLOBIN 7.7 g/dL (12.0-16.0); LYMPHOCYTES # (AUTO) 1.3 10^3/uL (1.5-3.5); LYMPHOCYTES % (AUTO) 13.3 %; MEAN CORPUSCULAR HEMOGLOBIN 19.5 pg (27.0-31.0); MEAN CORPUSCULAR HGB CONC 29.6 g/dL (32.0-36.0); MEAN CORPUSCULAR VOLUME 65.8 fL (81.0-99.0); MEAN PLATELET VOLUME 10.5 fL (7.9-10.8); MONOCYTES % (AUTO) 10.5 %; NEUTROPHILS # (AUTO) 6.9 10^3/uL (1.5-6.6); NEUTROPHILS % (AUTO) 70.8 %; PLT - PLATELET COUNT 429 10^3/uL (130-450); RED BLOOD COUNT 3.95 10^6/uL (4.20-5.40); RED CELL DISTRIBUTION WIDTH 16.6 % (12.0-15.0); WHITE BLOOD COUNT 9.7 x10^3/uL (4.8-10.8)
[2020-07-26 05:24] LABS: SLIDE REVIEW? Indicated
[2020-07-26 05:35] LABS: CALCIUM 9.7 mg/dL (8.5-10.3); CREATININE 1.4 mg/dL (0.4-1.0); POTASSIUM 4.1 mmol/L (3.5-5.0)
[2020-07-26 05:45] LABS: PLATELET ESTIMATE, MANUAL NORMAL (130-450,000) (NORMAL); PLATELET MORPHOLOGY NORMAL APPEARANCE (NORMAL); RBC MORPHOLOGY (MULTIPLE) 1+ MICROCYTOSIS (NORMAL); WBC MORPHOLOGY (MULTIPLE) NORMAL APPEARANCE (NORMAL)
[2020-07-26] MEDS: LACTATED RINGERS 1,000 ML IV SCH ×2 (07:06→17:13)
--- NOTE | 2020-07-26 07:26 | PROVIDER PROGRESS NOTE ---
Subjective - Prog Note Date Prog Note Date: 07/26/20 - Subjective Subjective: She continues to report feeling well. Denies any abdominal pain or flank pain. Reports no nausea or vomiting. Has been eating well. Current Medications - Current Medications Current Medications: Active Medications Acetaminophen (Acetaminophen 325 Mg Tablet) 650 mg PO Q4HR PRN PRN Reason: Pain 1 to 4 Last Admin: 07/25/20 01:41 Dose: 650 mg Documented by: Aspirin (Aspirin Chew 81 Mg Tablet) 81 mg PO DAILY [facility] Last Admin: 07/25/20 09:42 Dose: 81 mg Documented by: Carvedilol (Carvedilol 12.5 Mg Tablet) 12.5 mg PO BID [facility] Last Admin: 07/25/20 21:07 Dose: 12.5 mg Documented by: Lactated Ringer's (Lr) 1,000 mls @ 100 mls/hr IV .Q10H [facility] Last Admin: 07/26/20 07:06 Dose: 100 mls/hr Documented by: Cefepime HCl 1 gm/ Sodium (Chloride) 100 mls @ 200 mls/hr IV Q8H [facility] Last Infusion: 07/26/20 01:49 Dose: Infused Documented by: Insulin Aspart (Insulin Aspart 300 Unit/3 Ml Pen) 1 - 9 unit SUBQ 0800,1200,1700,2100 [facility]; Protocol Last Admin: 07/25/20 21:07 Dose: 1 unit Documented by: Insulin Glargine (Insulin Glargine 300 Unit/3 Ml Pen) 31 unit SUBQ DAILY [facility] Last Admin: 07/25/20 09:34 Dose: 31 unit Documented by: Ondansetron HCl (Ondansetron 4 Mg/2 Ml Vial) 4 mg IVP Q6HR PRN PRN Reason: Nausea / Vomiting Oxycodone HCl (Oxycodone 5 Mg Tablet) 5 mg PO Q4HR PRN PRN Reason: Pain 5 to 7 Cinacalcet Hcl [ Sensipar] 30 Mg Tablet 1 each PO 0900,1800 [facility] Last Admin: 07/25/20 18:00 Dose: 1 each Documented by: Mycophenolate Sodium [Myfortic] 180 Mg Tablet.Dr 1 each PO BID [facility] Last Admin: 07/25/20 21:06 Dose: 1 each Documented by: Prednisone (Prednisone 5 Mg Tablet) 5 mg PO DAILY [facility] Last Admin: 07/25/20 09:42 Dose: 5 mg Documented by: Prochlorperazine Edisylate (Prochlorperazine 10 Mg/2 Ml Vial) 10 mg IVP Q6HR PRN PRN Reason: Nausea / Vomiting Sodium Chloride (Sodium Chloride Flush 0.9% 10 Ml Syringe) 10 ml IVP PRN PRN PRN Reason: NEEDED PER PROVIDER ORDERS Sodium Chloride (Sodium Chloride Flush 0.9% 10 Ml Syringe) 10 ml IVP 0100,0900,1700 [facility] Last Admin: 07/26/20 01:20 Dose: 10 ml Documented by: Tacrolimus (Tacrolimus 0.5 Mg Capsule) 2.5 mg PO BID [facility] Last Admin: 07/25/20 21:08 Dose: 2.5 mg Documented by: Aspirin 81 mg PO DAILY 11/28/17 Cinacalcet HCl [Sensipar] 60 mg PO DAILY 03/26/20 Famotidine [Acid-Pep] 20 mg PO DAILY 03/26/20 Insulin Glargine [Lantus Solostar] 31 units SUBQ DAILY 03/26/20 Insulin Lispro [Humalog] 1 units SUBQ DAILY 03/26/20 Mycophenolate Sodium [Myfortic] 180 mg PO BID 03/26/20 Prednisone 5 mg PO DAILY 03/26/20 Tacrolimus [Prograf] 2.5 mg PO BID 03/26/20 carvediloL [Coreg] 12.5 mg PO BID 03/26/20 gemfibroziL [Lopid] 600 mg PO BID 03/26/20 Objective - Vital Signs/Intake & Output Reviewed Vital Signs: Yes Vital Signs: Vital Signs x48h Temp Pulse Pulse Resp BP Pulse Ox 07/26/20 05:00 37.2 C 60 16 143/46 H 99 07/26/20 01:00 36.7 C 56 L 16 127/56 L 97 Intake & Output: Intake & Output 07/23/20 07/24/20 07/25/20 07/26/20 23:59 23:59 23:59 23:59 Intake Total 10 3806.666 983.333 Output Total 225 2040 350 Balance -215 1766.666 633.333 - Objective General Appearance: positive: No acute distress, Alert Eyes Bilateral: positive: Normal inspection, Conjunctivae nml ENT: positive: ENT inspection nml Neck: positive: Nml inspection Respiratory: positive: No respiratory distress. negative: Wheezes, Rales Cardiovascular: positive: Regular rate & rhythm, No murmur. negative: Tachycardia Abdomen: positive: Non-tender, No distention, Other (Palpable kidney in right lower quadrant. Prior incision noted.). negative: Tenderness, Guarding, Rebound Skin: positive: Warm, Dry Extremities: positive: No pedal edema Neurologic/Psychiatric: negative: Disoriented to person, Disoriented to place - Lab Results Fish Bones: 07/26/20 05:00 07/26/20 05:00 Other Labs: Lab Results x24hrs 07/26/20 07/26/20 07/26/20 Range/Units 05:25 05:00 05:00 WBC (4.8-10.8) x10^3/uL RBC (4.20-5.40) 10^6/uL Hgb (12.0-16.0) g/dL Hct (37.0-47.0) % MCV (81.0-99.0) fL MCH (27.0-31.0) pg MCHC (32.0-36.0) g/dL RDW (12.0-15.0) % Plt Count (130-450) 10^3/uL MPV (7.9-10.8) fL Neut # (Auto) (1.5-6.6) 10^3/uL Lymph # (Auto) (1.5-3.5) 10^3/uL [place] # (Auto) (0.0-1.0) 10^3/uL Eos # (Auto) (0.0-0.7) 10^3/uL Baso # (Auto) (0.0-0.1) 10^3/uL Absolute Nucleated RBC x10^3/uL Nucleated RBC % /100WBC Manual Slide Review WBC Morphology (NORMAL) Platelet Estimate (NORMAL) Platelet Morphology (NORMAL) RBC Morph Micro Appear (NORMAL) Sodium (135-145) mmol/L Potassium (3.5-5.0) mmol/L Chloride (101-111) mmol/L Carbon Dioxide (21-32) mmol/L Anion Gap (6-13) BUN (6-20) mg/dL Creatinine (0.4-1.0) mg/dL Estimated GFR (MDRD) (>89) Glucose (70-100) mg/dL Calcium (8.5-10.3) mg/dL Iron (28-170) ug/dL TIBC (250-450) ug/dL % Saturation (20-50) % Transferrin (192-382) mg/dL Ferritin 1053.4 H (11.0-306.8) ng/mL Blood Type A POSITIVE Blood Type Recheck A POSITIVE Antibody Screen NEGATIVE 07/26/20 07/26/20 Range/Units 05:00 05:00 WBC 9.7 (4.8-10.8) x10^3/uL RBC 3.95 L (4.20-5.40) 10^6/uL Hgb 7.7 L (12.0-16.0) g/dL Hct 26.0 L (37.0-47.0) % MCV 65.8 L (81.0-99.0) fL MCH 19.5 L (27.0-31.0) pg MCHC 29.6 L (32.0-36.0) g/dL RDW 16.6 H (12.0-15.0) % Plt Count 429 (130-450) 10^3/uL MPV 10.5 (7.9-10.8) fL Neut # (Auto) 6.9 H (1.5-6.6) 10^3/uL Lymph # (Auto) 1.3 L (1.5-3.5) 10^3/uL [place] # (Auto) 1.0 (0.0-1.0) 10^3/uL Eos # (Auto) 0.2 (0.0-0.7) 10^3/uL Baso # (Auto) 0.0 (0.0-0.1) 10^3/uL Absolute Nucleated RBC 0.00 x10^3/uL Nucleated RBC % 0.0 /100WBC Manual Slide Review Indicated WBC Morphology NORMAL APPEARANCE (NORMAL) Platelet Estimate NORMAL (130-450,000) (NORMAL) Platelet Morphology NORMAL APPEARANCE (NORMAL) RBC Morph Micro Appear 1+ MICROCYTOSIS (NORMAL) Sodium 140 (135-145) mmol/L Potassium 4.1 (3.5-5.0) mmol/L Chloride 112 H (101-111) mmol/L Carbon Dioxide 20 L (21-32) mmol/L Anion Gap 8.0 (6-13) BUN 27 H (6-20) mg/dL Creatinine 1.4 H (0.4-1.0) mg/dL Estimated GFR (MDRD) 38 L (>89) Glucose 135 H (70-100) mg/dL Calcium 9.7 (8.5-10.3) mg/dL Iron 31 (28-170) ug/dL TIBC 164 L (250-450) ug/dL % Saturation 19 L (20-50) % Transferrin 117 L (192-382) mg/dL Ferritin (11.0-306.8) ng/mL Blood Type Blood Type Recheck Antibody Screen ABX Reporting Has patient been on IV antibiotics over the past 48 hours?: Yes Sepsis Event Note (H) - Evaluation Current Stage of Sepsis: Resolved Possible source of Sepsis: positive: Genitourinary - Sepsis Criteria Sepsis Criteria: Recorded Temperature greater than 38.3C or Less than 36C, WBC count greater than 12,000 or less than 4000, Renal: urine output less than 0.5ml/kg/hr for 2 hours or creatinine gr Assessment/Plan - Problem List (1) Sepsis Impression: Her sepsis appears to have resolved now. This is secondary to the pyelonephritis She has been afebrile for the past 24 hours. Her white count is also improving. Her blood cultures have been negative after the first 24 hours. Her urine culture is growing gram-negative rods. At this point time, we will discontinue vancomycin and continue cefepime IV alone. We will keep her on IV antibiotics until we ensure that blood culture negative for 48 hours and she remains fever free for another 24 hours. Once we have cultures back, we will transition to oral antibiotics and monitor her for another 24 hours before discharge. Continue to trend CBC and follow-up blood cultures. (2) Pyelonephritis Impression: This is the cause of her sepsis. CT of the abdomen and pelvis confirmed pyelonephritis of the transplanted kidney. Her sepsis appears to be resolving as mentioned above. Today is day 2 of IV antibiotics and she remains on cefepime as the urine cultures are growing gram-negative rods. Vancomycin has been discontinued. We will keep her on IV antibiotics for the time being as mentioned above. She will ultimately need at least 2 weeks of therapy for the pyelonephritis of the transplanted kidney. (3) Acute kidney injury superimposed on chronic kidney disease Impression: Suspect this was likely prerenal injury. Her creatinine on admission was 1.7 and her baseline is about 1.2. Today her creatinine has improved to 1.4. We will continue gentle IV hydration for another day before likely discontinuing fluids tomorrow. Continue to avoid nephrotoxins. Monitor renal function and urine output. (4) Kidney transplant recipient Impression: This was performed at the [facility] in July 2019. I did speak with transplant nephrology yesterday who recommended continuing her current dose of immunosuppressants as long as she was not hypotensive and in shock. At this point in time, we will continue the prednisone, mycophenolate, Prograf. (5) Anemia Impression: Her hemoglobin is slightly decreased again today at 7.7. I suspect her drop since admission is likely dilutional due to the IV fluids she received. Her MCV is decreased at 66. Her iron studies are suggestive of anemia of chronic disease rather than iron deficiency. Her ferritin is quite elevated likely due to it being an acute phase reactant given the pyelonephritis. We will hold off on iron supplementation given the active infection. 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 Stool occult blood was ordered and is pending to rule out a GI bleed although this is felt to be less likely. (6) Insulin dependent diabetes mellitus Impression: Her blood glucose has been well controlled. We will continue her home insulin regimen with sliding scale and a carb controlled diet.
[2020-07-26] MEDS ORDERED: cefTRIAXone 1 GM in SODIUM CHLORIDE 0.9% MINIBAG 100 ML IV SCH (10:00)
[2020-07-26] MEDS ORDERED: VANCOMYCIN INJ 1 GM in SODIUM CHLORIDE 0.9% 250 ML IV SCH (10:00)
[2020-07-26] MEDS: ASPIRIN CHEW 81 MG TABLET PO SCH (10:20)
[2020-07-26] MEDS: carvediloL 12.5 MG TABLET PO SCH ×2 (10:22→21:32)
[2020-07-26] MEDS: TACROLIMUS 0.5 MG CAPSULE PO SCH ×2 (10:22→21:32)
[2020-07-26] MEDS: INSULIN ASPART 300 UNIT/3 ML PEN SUBQ SCH ×4 (10:22→21:34)
[2020-07-26] MEDS: INSULIN GLARGINE 300 UNIT/3 ML PEN SUBQ SCH (10:23)
[2020-07-26] MEDS: predniSONE 5 MG TABLET PO SCH (10:24)
[2020-07-26] MEDS: CINACALCET HCL 30 MG PO SCH ×2 (10:25→18:11)
[2020-07-26] MEDS: MYCOPHENOLATE SODIUM 180 MG PO SCH ×2 (10:26→21:33)
[2020-07-27] MEDS: SODIUM CHLORIDE FLUSH 0.9% 10 ML SYRINGE IVP SCH ×3 (02:22→17:13)
[2020-07-27] MEDS: LACTATED RINGERS 1,000 ML IV SCH (02:54)
[2020-07-27 05:27] LABS: BASOPHILS % (AUTO) 0.5 %; EOSINOPHILS # (AUTO) 0.2 10^3/uL (0.0-0.7); EOSINOPHILS % (AUTO) 3.1 %; HCT - HEMATOCRIT 26.1 % (37.0-47.0); HGB - HEMOGLOBIN 7.6 g/dL (12.0-16.0); LYMPHOCYTES # (AUTO) 1.4 10^3/uL (1.5-3.5); LYMPHOCYTES % (AUTO) 19.3 %; MEAN CORPUSCULAR HGB CONC 29.1 g/dL (32.0-36.0); MEAN CORPUSCULAR VOLUME 65.1 fL (81.0-99.0); MEAN PLATELET VOLUME 10.4 fL (7.9-10.8); MONOCYTES # (AUTO) 0.8 10^3/uL (0.0-1.0); MONOCYTES % (AUTO) 10.3 %; NEUTROPHILS # (AUTO) 4.6 10^3/uL (1.5-6.6); NEUTROPHILS % (AUTO) 61.8 %; PLT - PLATELET COUNT 486 10^3/uL (130-450); RED BLOOD COUNT 4.01 10^6/uL (4.20-5.40); RED CELL DISTRIBUTION WIDTH 16.7 % (12.0-15.0); WHITE BLOOD COUNT 7.4 x10^3/uL (4.8-10.8)
[2020-07-27 05:35] LABS: SLIDE REVIEW? Indicated
[2020-07-27 05:39] LABS: CALCIUM 9.3 mg/dL (8.5-10.3); CREATININE 1.3 mg/dL (0.4-1.0); POTASSIUM 3.7 mmol/L (3.5-5.0)
[2020-07-27 05:50] LABS: PLATELET ESTIMATE, MANUAL INCREASED (>450,000) (NORMAL); PLATELET MORPHOLOGY NORMAL APPEARANCE (NORMAL); RBC MORPHOLOGY (MULTIPLE) 2+ MACROCYTOSIS (NORMAL); WBC MORPHOLOGY (MULTIPLE) NORMAL APPEARANCE (NORMAL)
--- NOTE | 2020-07-27 07:24 | PROVIDER PROGRESS NOTE ---
Subjective - Prog Note Date Prog Note Date: 07/27/20 - Subjective Subjective: She continues to report feeling well. Denies any pain, nausea, vomiting. Has been eating well. Current Medications - Current Medications Current Medications: Active Medications Acetaminophen (Acetaminophen 325 Mg Tablet) 650 mg PO Q4HR PRN PRN Reason: Pain 1 to 4 Last Admin: 07/25/20 01:41 Dose: 650 mg Documented by: Aspirin (Aspirin Chew 81 Mg Tablet) 81 mg PO DAILY [facility] Last Admin: 07/26/20 10:20 Dose: 81 mg Documented by: Carvedilol (Carvedilol 12.5 Mg Tablet) 12.5 mg PO BID [facility] Last Admin: 07/26/20 21:32 Dose: 12.5 mg Documented by: Ciprofloxacin (Ciprofloxacin 250 Mg Tablet) 500 mg PO BID [facility] Insulin Aspart (Insulin Aspart 300 Unit/3 Ml Pen) 1 - 9 unit SUBQ 0800,1200,1700,2100 [facility]; Protocol Last Admin: 07/26/20 21:34 Dose: 3 unit Documented by: Insulin Glargine (Insulin Glargine 300 Unit/3 Ml Pen) 31 unit SUBQ DAILY [facility] Last Admin: 07/26/20 10:23 Dose: 31 unit Documented by: Ondansetron HCl (Ondansetron 4 Mg/2 Ml Vial) 4 mg IVP Q6HR PRN PRN Reason: Nausea / Vomiting Oxycodone HCl (Oxycodone 5 Mg Tablet) 5 mg PO Q4HR PRN PRN Reason: Pain 5 to 7 Cinacalcet Hcl [ Sensipar] 30 Mg Tablet 1 each PO 0900,1800 [facility] Last Admin: 07/26/20 18:11 Dose: 1 each Documented by: Mycophenolate Sodium [Myfortic] 180 Mg Tablet.Dr 1 each PO BID [facility] Last Admin: 07/26/20 21:33 Dose: 1 each Documented by: Prednisone (Prednisone 5 Mg Tablet) 5 mg PO DAILY [facility] Last Admin: 07/26/20 10:24 Dose: 5 mg Documented by: Prochlorperazine Edisylate (Prochlorperazine 10 Mg/2 Ml Vial) 10 mg IVP Q6HR PRN PRN Reason: Nausea / Vomiting Sodium Chloride (Sodium Chloride Flush 0.9% 10 Ml Syringe) 10 ml IVP PRN PRN PRN Reason: NEEDED PER PROVIDER ORDERS Sodium Chloride (Sodium Chloride Flush 0.9% 10 Ml Syringe) 10 ml IVP 0100,0900,1700 [facility] Last Admin: 07/27/20 02:22 Dose: Not Given Documented by: Tacrolimus (Tacrolimus 0.5 Mg Capsule) 2.5 mg PO BID [facility] Last Admin: 07/26/20 21:32 Dose: 2.5 mg Documented by: Aspirin 81 mg PO DAILY 11/28/17 Cinacalcet HCl [Sensipar] 60 mg PO DAILY 03/26/20 Famotidine [Acid-Pep] 20 mg PO DAILY 03/26/20 Insulin Glargine [Lantus Solostar] 31 units SUBQ DAILY 03/26/20 Insulin Lispro [Humalog] 1 units SUBQ DAILY 03/26/20 Mycophenolate Sodium [Myfortic] 180 mg PO BID 03/26/20 Prednisone 5 mg PO DAILY 03/26/20 Tacrolimus [Prograf] 2.5 mg PO BID 03/26/20 carvediloL [Coreg] 12.5 mg PO BID 03/26/20 gemfibroziL [Lopid] 600 mg PO BID 03/26/20 Objective - Vital Signs/Intake & Output Reviewed Vital Signs: Yes Vital Signs: Vital Signs x48h Temp Pulse Resp BP Pulse Ox 07/27/20 04:45 36.5 C 60 18 141/60 H 99 07/27/20 01:00 36.4 C L 61 18 131/67 H 99 Intake & Output: Intake & Output 07/24/20 07/25/20 07/26/20 07/27/20 23:59 23:59 23:59 23:59 Intake Total 10 3806.666 3438.300 498.333 Output Total 225 2040 1900 1165 Balance -215 1992.981 2651.300 -666.667 - Objective General Appearance: positive: No acute distress, Alert Eyes Bilateral: positive: Normal inspection, Conjunctivae nml ENT: positive: ENT inspection nml Neck: positive: Nml inspection Respiratory: positive: No respiratory distress. negative: Wheezes, Rales Cardiovascular: positive: Regular rate & rhythm, No murmur. negative: Tachycardia Abdomen: positive: Non-tender, No distention, Other (Palpable kidney in right lower quadrant. Prior surgical incision noted.). negative: Tenderness, Guar ding, Rebound Skin: positive: Warm, Dry Extremities: positive: No pedal edema Neurologic/Psychiatric: negative: Disoriented to person, Disoriented to place - Lab Results Fish Bones: 07/27/20 04:55 07/27/20 04:55 Other Labs: Lab Results x24hrs 07/27/20 07/27/20 Range/Units 04:55 04:55 WBC 7.4 (4.8-10.8) x10^3/uL RBC 4.01 L (4.20-5.40) 10^6/uL Hgb 7.6 L (12.0-16.0) g/dL Hct 26.1 L (37.0-47.0) % MCV 65.1 L (81.0-99.0) fL MCH 19.0 L (27.0-31.0) pg MCHC 29.1 L (32.0-36.0) g/dL RDW 16.7 H (12.0-15.0) % Plt Count 486 H (130-450) 10^3/uL MPV 10.4 (7.9-10.8) fL Neut # (Auto) 4.6 (1.5-6.6) 10^3/uL Lymph # (Auto) 1.4 L (1.5-3.5) 10^3/uL [place] # (Auto) 0.8 (0.0-1.0) 10^3/uL Eos # (Auto) 0.2 (0.0-0.7) 10^3/uL Baso # (Auto) 0.0 (0.0-0.1) 10^3/uL Absolute Nucleated RBC 0.00 x10^3/uL Nucleated RBC % 0.0 /100WBC Manual Slide Review Indicated WBC Morphology NORMAL APPEARANCE (NORMAL) Platelet Estimate INCREASED (>450,000) (NORMAL) Platelet Morphology NORMAL APPEARANCE (NORMAL) RBC Morph Micro Appear 2+ MACROCYTOSIS (NORMAL) Sodium 143 (135-145) mmol/L Potassium 3.7 (3.5-5.0) mmol/L Chloride 112 H (101-111) mmol/L Carbon Dioxide 23 (21-32) mmol/L Anion Gap 8.0 (6-13) BUN 23 H (6-20) mg/dL Creatinine 1.3 H (0.4-1.0) mg/dL Estimated GFR (MDRD) 42 L (>89) Glucose 93 (70-100) mg/dL Calcium 9.3 (8.5-10.3) mg/dL ABX Reporting Has patient been on IV antibiotics over the past 48 hours?: Yes Sepsis Event Note (H) - Evaluation Current Stage of Sepsis: Resolved Possible source of Sepsis: positive: Genitourinary - Sepsis Criteria Sepsis Criteria: Recorded Temperature greater than 38.3C or Less than 36C, WBC count greater than 12,000 or less than 4000, Renal: urine output less than 0.5ml/kg/hr for 2 hours or creatinine gr Assessment/Plan - Problem List (1) Pyelonephritis Impression: She continues to do well clinically. She remains afebrile with a normal white count. Urine culture grew Serratia. Blood cultures have been negative to date. Given she has been afebrile with a normal white count and negative blood cultures, we will transition her to oral ciprofloxacin today and if she remains stable over next 24 hours she can be discharged tomorrow morning. She will need at least 2 weeks of total therapy from admission. (2) Acute kidney injury superimposed on chronic kidney disease Impression: This has now nearly resolved. Her creatinine was 1.7 on admission and her baseline is about 1.2. Today her creatinine is down to 1.3. Given she is lennox ing adequate p.o., we will discontinue IV fluids. Continue to monitor renal function. Avoid nephrotoxins. (3) Kidney transplant recipient Impression: Stable. We are continuing her home immunosuppressants as recommended by nephrology given she was never hypotensive or in shock. She will need outpatient follow-up with her sewing machine tester on discharge. (4) Anemia Impression: Her hemoglobin remains relatively stable and today it is 7.6. I suspect the initial drop from admission was dilutional due to IV fluids that she received. There has been no evidence of bleeding. Her iron studies were suggestive of anemia of chronic disease and the high ferritin was likely an acute phase reactant given her infection. We will hold off on iron supplementation for the time being given active infection but she will need follow-up with her sewing machine tester and would likely benefit from erythropoietin. (5) Insulin dependent diabetes mellitus Impression: Her blood glucose is well controlled on her current insulin regimen. We will continue her home dose of Lantus and sliding scale with a carb controlled diet. (6) Sepsis Impression: The sepsis has now resolved. She remains afebrile with a normal white count. This was secondary to the pyelonephritis.
[2020-07-27] MEDS: INSULIN ASPART 300 UNIT/3 ML PEN SUBQ SCH ×4 (09:46→21:06)
[2020-07-27] MEDS: TACROLIMUS 0.5 MG CAPSULE PO SCH ×2 (09:55→21:04)
[2020-07-27] MEDS: ASPIRIN CHEW 81 MG TABLET PO SCH (09:55)
[2020-07-27] MEDS: predniSONE 5 MG TABLET PO SCH (09:56)
[2020-07-27] MEDS: CIPROFLOXACIN 250 MG TABLET PO SCH ×2 (09:56→21:05)
[2020-07-27] MEDS: CINACALCET HCL 30 MG PO SCH ×2 (09:56→18:02)
[2020-07-27] MEDS: MYCOPHENOLATE SODIUM 180 MG PO SCH ×2 (09:57→21:05)
[2020-07-27] MEDS: carvediloL 12.5 MG TABLET PO SCH ×2 (10:04→21:05)
[2020-07-27] MEDS: INSULIN GLARGINE 300 UNIT/3 ML PEN SUBQ SCH (10:08)
[2020-07-27] MEDS: polyethylene glycoL 3350 17 GM PACKET PO SCH (12:02)
[2020-07-27] MEDS: DOCUSATE SODIUM 250 MG CAPSULE PO SCH (21:05)
[2020-07-27] MEDS: SENNA 8.6 MG TABLET PO SCH (21:05)
[2020-07-28] MEDS: SODIUM CHLORIDE FLUSH 0.9% 10 ML SYRINGE IVP SCH ×2 (01:27→10:20)
[2020-07-28 05:59] LABS: BASOPHILS % (AUTO) 0.4 %; EOSINOPHILS # (AUTO) 0.2 10^3/uL (0.0-0.7); HCT - HEMATOCRIT 26.2 % (37.0-47.0); HGB - HEMOGLOBIN 7.8 g/dL (12.0-16.0); LYMPHOCYTES # (AUTO) 1.5 10^3/uL (1.5-3.5); LYMPHOCYTES % (AUTO) 20.5 %; MEAN CORPUSCULAR HEMOGLOBIN 19.5 pg (27.0-31.0); MEAN CORPUSCULAR HGB CONC 29.8 g/dL (32.0-36.0); MEAN CORPUSCULAR VOLUME 65.3 fL (81.0-99.0); MEAN PLATELET VOLUME 9.9 fL (7.9-10.8); MONOCYTES # (AUTO) 0.7 10^3/uL (0.0-1.0); MONOCYTES % (AUTO) 9.9 %; NEUTROPHILS # (AUTO) 4.5 10^3/uL (1.5-6.6); NEUTROPHILS % (AUTO) 60.5 %; PLT - PLATELET COUNT 468 10^3/uL (130-450); RED BLOOD COUNT 4.01 10^6/uL (4.20-5.40); RED CELL DISTRIBUTION WIDTH 16.6 % (12.0-15.0); WHITE BLOOD COUNT 7.5 x10^3/uL (4.8-10.8)
[2020-07-28 06:00] LABS: SLIDE REVIEW? Indicated
[2020-07-28 06:06] LABS: CREATININE 1.2 mg/dL (0.4-1.0); POTASSIUM 3.6 mmol/L (3.5-5.0)
[2020-07-28 06:20] LABS: RBC MORPHOLOGY (MULTIPLE) 2+ MACROCYTOSIS (NORMAL)
[2020-07-28 06:21] LABS: PLATELET ESTIMATE, MANUAL INCREASED (>450,000) (NORMAL); PLATELET MORPHOLOGY NORMAL APPEARANCE (NORMAL); WBC MORPHOLOGY (MULTIPLE) NORMAL APPEARANCE (NORMAL)
[2020-07-28] MEDS: INSULIN ASPART 300 UNIT/3 ML PEN SUBQ SCH ×2 (08:28→12:33)
--- NOTE | 2020-07-28 09:23 | Discharge Plan ---
Discharge Plan Problem Reviewed?: Yes Disposition: Home, Self Care Condition: Stable Prescriptions: Ciprofloxacin [Cipro] 500 mg PO BID #20 tablet Diet: Diabetic Activity Restrictions: Activity as Tolerated Shower Restrictions: No (fall precaution) Instruction Topics: Ciprofloxacin tablets, Urinary Tract Infecs Women, Kidney Transplant, Anemia and Kidney Disease, Pyelonephritis Dc Health Concerns: pyelonephritis Plan of Treatment: you feel much better and you have no more fever. You were found to have pyelonep hritis. Antibiotics Cipro is prescribed for you to finish the treatment course. You may followup with your campaign manager, and manage your anemia as well Care Goals: stabilization and improvement of your medical conditions Assessment: discussed the care plan with you, answered your question, you understood. Additional Instructions or Follow Up instructions: You may followup with your PCP in one to two weeks, followup with campaign manager as out-pt. Should your symptoms return or worsen, you may present ER or call 911 for help. No Smoking: If you smoke, Please STOP! Call for help. Follow-up with: FREEMAN CH MD [Primary Care Provider] -
[2020-07-28] MEDS: TACROLIMUS 0.5 MG CAPSULE PO SCH (10:14)
[2020-07-28] MEDS: CIPROFLOXACIN 250 MG TABLET PO SCH (10:15)
[2020-07-28] MEDS: DOCUSATE SODIUM 250 MG CAPSULE PO SCH (10:15)
[2020-07-28] MEDS: predniSONE 5 MG TABLET PO SCH (10:15)
[2020-07-28] MEDS: SENNA 8.6 MG TABLET PO SCH (10:16)
[2020-07-28] MEDS: ASPIRIN CHEW 81 MG TABLET PO SCH (10:18)
[2020-07-28] MEDS: carvediloL 12.5 MG TABLET PO SCH (10:19)
[2020-07-28] MEDS: polyethylene glycoL 3350 17 GM PACKET PO SCH (10:23)
[2020-07-28] MEDS: CINACALCET HCL 30 MG PO SCH (10:26)
[2020-07-28] MEDS: MYCOPHENOLATE SODIUM 180 MG PO SCH (10:26)
[2020-07-28] MEDS: INSULIN GLARGINE 300 UNIT/3 ML PEN SUBQ SCH (10:27)
--- NOTE | 2020-07-28 10:53 | DISCHARGE SUMMARY ---
Discharge Summary Admit Date: 07/24/20 Discharge Date: 07/28/20 Discharging Provider: Chandu Ann Primary Care Provider: Leyla Shukla Condition at Discharge: Stable Discharge Disposition: 01 Home, Self Care Discharge Facility Name: home - DIAGNOSES Discharge Diagnoses with Status of Each Condition: (1) Pyelonephritis resolved in acute. pt feel much better. she had no nausea or vomining. pt has no more fever, and her WBC became normal arrange. pt is prescribed antibiotics for total two weeks to finish the treatment course. pt was found to have Serratia UTI infection. (2) Acute kidney injury superimposed on chronic kidney disease resolved as creatinine is 1.2. pt may keep hydration at home and Avoid nephrotoxins, followup with her billet assembler as out-pt. (3) Kidney transplant recipient Stable. pt may outpatient follow-up with her billet assembler on discharge. (4) Anemia stable, she will need follow-up with her billet assembler and would likely benefit from erythropoietin. (5) Insulin dependent diabetes mellitus stable, resume home meds (6) Sepsis pt had fever, elevated WBC and MAY at the admission. The sepsis has now resolved. pt is prescribed Cipro for total two weeks - HPI History of Present Illness: refer from Dr. Lucas's HPI on 07/24/20 She is a 60-year-old [place] female who progressed with chronic kidney disease and ended up having a renal transplant in July 2019. She does have a previous history of UTIs. She is compliant with her immunosuppressive medications but has not been on her prophylactic antibiotics or antifungals for quite some time at the instruction of her billet assembler. She presents with 2 to 3 days of malais e, increasing sleepiness and wanting to just be in bed all the time. While she has been eating and drinking, her p.o. intake is much reduced according to the son's history. Today she developed suprapubic tenderness with cloudy urine. As such the family called EMS for unclear reasons. There was no urgency, hemodynamic instability, syncope but they called an ambulance. At the scene her temperature was 102. Accu-Chek was 143. She was evaluated by Dr. Ferguson. Temperature was 37.3 in the emergency room but was high as high as 102 by EMS at the scene where she received Tylenol. Blood pressure 160/60. Heart rate 78. 99% on room air. Physical examination was unremarkable other than for mild suprapubic tenderness. Sodium is chronically low and she is 133. BUN 25 and creatinine 1.7. Baseline creatinine is 1.2 as of May. Random glucose 141. Lactic acid 1.2. Calcium 10.5. White cell count is elevated at 14.6 thousand. Hemoglobin reduced at 8.4, hematocrit 28.9. Platelets 461. Urinalysis had moderate leukocyte Estrace, greater than 25 white cells, few squamous cells, many bacteria. Nitrite negative. pH is 6.0. Dr. Ferguson initial thought was to treat her as a cystitis and give her antibiotics with IV fluids and send her home. However the slight rise in creatinine and her renal transplant status gave him pause. He consulted with her billet assembler. They agree that the slight rise in creatinine is concerning in a patient with a kidney transplant. As such nephrology would like her placed in observation. Receive IV fluids overnight. She is already received antibiotics in the morning. If her creatinine comes down in the morning she will most likely be sent home. If creatinine goes up, nephrology must be notified. - HOSPITAL COURSE Hospital Course: pt was admitted for 2 to 3 days of malaise, increasing sleepiness, later pt was found to have high fever, elevated WBC and MAY. CT scan of the abdomen and pelvis show patient had pyelonephritis. UA culture show pt had serratia UTI. After the patient was treated with intravenous antibiotics, intravenous IV fluids, Patient feels much better, patient has no more fever, blood cultures are negative, WBC become normal range. She was discharged as a hemodynamic conditio n. - ALLERGIES Allergies/Adverse Reactions: Allergies Allergy/AdvReac Type Severity Reaction Status Date / Time No Known Drug Allergies Allergy Verified 07/24/20 21:35 - MEDICATIONS Home Medications: Ambulatory Orders Medication Instructions Recorded Confirmed Aspirin 81 mg PO DAILY 11/28/17 07/24/20 Cinacalcet HCl [Sensipar] 60 mg PO DAILY 03/26/20 07/24/20 Famotidine [Acid-Pep] 20 mg PO DAILY 03/26/20 07/24/20 Insulin Glargine [Lantus Solostar] 31 units SUBQ DAILY 03/26/20 07/24/20 Insulin Lispro [Humalog] 1 units SUBQ DAILY 03/26/20 07/24/20 Mycophenolate Sodium [Myfortic] 180 mg PO BID 03/26/20 07/24/20 Prednisone 5 mg PO DAILY 03/26/20 07/24/20 Tacrolimus [Prograf] 2.5 mg PO BID 03/26/20 07/24/20 carvediloL [Coreg] 12.5 mg PO BID 03/26/20 07/24/20 gemfibroziL [Lopid] 600 mg PO BID 03/26/20 07/24/20 Ciprofloxacin [Cipro] 500 mg PO BID #20 tablet 07/28/20 - PHYSICAL EXAM AT DISCHARGE General Appearance: positive: No acute distress, Alert. negative: Lethargic Eyes Bilateral: positive: Normal inspection, PERRL, No lid inflammation ENT: positive: ENT inspection nml, No signs of dehydration. negative: Purulent nasal drainage Neck: positive: Nml inspection, Trachea midline. negative: Thyromegaly, Tracheal deviation Respiratory: positive: Chest non-tender, No respiratory distress. negative: Wheezes, Rales, Rhonchi Cardiovascular: positive: Regular rate & rhythm, No murmur. negative: Ta chycardia, Bradycardia, Systolic murmur, Diastolic murmur Peripheral Pulses: positive: 2+ Abdomen: positive: Non-tender, Nml bowel sounds, No distention. negative: Tenderness, Guarding Back: positive: Nml inspection Skin: positive: Color nml, Warm, Dry. negative: Cyanosis, Diaphoresis Extremities: positive: Non-tender, Full ROM, Nml appearance. negative: Calf tenderness Neurologic/Psychiatric: positive: Oriented x3, Motor nml, Sensation nml, M ood/affect nml. negative: Weakness, Sensory loss, Facial droop, Slurred/abnml speech, Depressed mood/affect - LABS Result Diagrams: 07/28/20 05:47 07/28/20 05:47 - SEPSIS Current Stage of Sepsis: Resolved Possible source of Sepsis: Genitourinary Sepsis Criteria: Recorded Temperature greater than 38.3C or Less than 36C, WBC count greater than 12,000 or less than 4000, Renal: urine output less than 0.5ml/kg/hr for 2 hours or creatinine gr - FOLLOW UP Follow Up: you feel much better and you have no more fever. You were found to have pyelonephritis. Antibiotics Cipro is prescribed for you to finish the treatment course. You may followup with your billet assembler, and manage your anemia as well You may followup with your PCP in one to two weeks, followup with billet assembler as out-pt. Should your symptoms return or worsen, you may present ER or call 911 for help. - TIME SPENT Time Spent in Discharge (Minutes): 30
[2020-07-28 11:23] VITALS: BP 143/61
== END 2020-07-28 12:12 | disposition home or self-care (01) | DRG 871 ==
LOC: EDUNIT# → ED 21:13 → MS2 23:47 → OBSVTOIN 07-25 17:37
PROVIDERS: ADMIT Specialist; ATTEND Nurse Practitioner Gerontology
DX: A41.9 Sepsis, unspecified organism (principal); A41.53 Sepsis due to Serratia; G93.41 Metabolic encephalopathy; I12.9 Hypertensive chronic kidney disease with stage 1 through stage 4 chronic kidney disease, or unspecified chronic kidney disease; N17.9 Acute kidney failure, unspecified; E87.1 Hypo-osmolality and hyponatremia; Z94.0 Kidney transplant status; N25.81 Secondary hyperparathyroidism of renal origin; N12 Tubulo-interstitial nephritis, not specified as acute or chronic; D50.8 Other iron deficiency anemias; E11.22 Type 2 diabetes mellitus with diabetic chronic kidney disease; N18.9 Chronic kidney disease, unspecified; D63.1 Anemia in chronic kidney disease; E86.0 Dehydration; E78.00 Pure hypercholesterolemia, unspecified; E11.319 Type 2 diabetes mellitus with unspecified diabetic retinopathy without macular edema; Z20.822 Contact with and (suspected) exposure to COVID-19; G89.29 Other chronic pain; M54.5 Low back pain; Z79.4 Long term (current) use of insulin; Z79.82 Long term (current) use of aspirin; Z79.52 Long term (current) use of systemic steroids; Z79.899 Other long term (current) drug therapy; Z87.891 Personal history of nicotine dependence; Z87.440 Personal history of urinary (tract) infections
CPT/HCPCS: 36415; 71045; 74176; 80048; 80053; 80197; 81001; 82728; 83540; 83605; 83690; 83735; 84466; 85025; 86850; 86900; 86901; 87040; 87077; 87086; 87181; 87631; 96365; 96366; 96367; 99284; 99285; A9270; G0378; J1815; J3370; J7120; J7512; 0202U; 81003; 82272

== ENCOUNTER 2020-10-08 17:04 | Emergency (ER) | payer MEDICARE, OTHER ==
[2020-10-08 17:35] LABS: BILIRUBIN,URINE NEGATIVE (NEGATIVE); GLUCOSE, URINE (UA) NEGATIVE (NEGATIVE); KETONES,URINE (UA) NEGATIVE (NEGATIVE); LEUKOCYTE ESTERASE, URINE MODERATE (NEGATIVE); NITRITE,URINE NEGATIVE (NEGATIVE); OCCULT BLOOD,URINE NEGATIVE (NEGATIVE); PROTEIN,URINE NEGATIVE (NEGATIVE); UROBILINOGEN,URINE 0.2 (NORMAL) E.U./dL (NORMAL)
[2020-10-08 17:37] LABS: CLARITY,URINE HAZY (CLEAR)
[2020-10-08 18:00] LABS: BACTERIA,URINE Rare /HPF (None Seen); RBC,URINE 0-5 /HPF (0-5); SQUAMOUS EPITHELIAL CELL,UR MOD Squamous (<= Few); WBC,URINE >25 /HPF (0-5)
[2020-10-08] MEDS ORDERED: cefTRIAXone 1 GM VIAL IM STA (18:18)
[2020-10-08] MEDS ORDERED: LIDOCAINE 1% 2 ML VIAL MC ONE (18:18)
--- NOTE | 2020-10-08 18:20 | ED Physician Documentation ---
PD HPI FEMALE - Stated complaint Stated Complaint: FEMALE - Chief complaint Chief Complaint: UTI - History obtained from History obtained from: Patient - Additional information Additional information: Nilam 60-year-old woman with history of renal transplant for ESRD presents because she has a UTI. States she was lethargic yesterday and has urinary frequency. There is no associated pain otherwise and no fevers. [place], but they said she should come to the emergency department to get antibiotics. It is unclear why they could not start antibiotics in the clinic. Last culture reviewed, Serratia which was sensitive to third-generation cephalosporins. Review of Systems Constitutional: denies: Fever, Chills Nose: reports: Reviewed and negative Throat: reports: Reviewed and negative PD PAST MEDICAL HISTORY - Past Medical History Cardiovascular: Hypertension Respiratory: None Neuro: None Endocrine/Autoimmune: Type 2 diabetes GI: None SUPERVISOR COSTUMING: Other () : Dialysis (Last dialysis on 11/27/17), Renal insuffiency HEENT:  Psych: None Musculoskeletal: None Derm: None - Past Surgical History Past Surgical History: Yes General:  Cardiovascular: Other (AV fistula) HEENT: Cataracts, Other - Present Medications Home Medications: Ambulatory Orders Medication Instructions Recorded Confirmed Aspirin 81 mg PO DAILY 11/28/17 07/24/20 Cinacalcet HCl [Sensipar] 60 mg PO DAILY 03/26/20 07/24/20 Famotidine [Acid-Pep] 20 mg PO DAILY 03/26/20 07/24/20 Insulin Glargine [Lantus Solostar] 31 units SUBQ DAILY 03/26/20 07/24/20 Insulin Lispro [Humalog] 1 units SUBQ DAILY 03/26/20 07/24/20 Mycophenolate Sodium [Myfortic] 180 mg PO BID 03/26/20 07/24/20 Tacrolimus [Prograf] 2.5 mg PO BID 03/26/20 07/24/20 carvediloL [Coreg] 12.5 mg PO BID 03/26/20 07/24/20 gemfibroziL [Lopid] 600 mg PO BID 03/26/20 07/24/20 predniSONE [Prednisone] 5 mg PO DAILY 03/26/20 07/24/20 Ciprofloxacin [Cipro] 500 mg PO BID #20 tablet 07/28/20 Cefdinir 300 mg PO BID #20 cap 10/08/20 - Allergies Allergies/Adverse Reactions: Allergies Allergy/AdvReac Type Severity Reaction Status Date / Time No Known Drug Allergies Allergy Verified 10/08/20 17:26 - Social History Does the pt smoke?: No Smoking Status: Never smoker Does the pt drink ETOH?: No Does the pt have substance abuse?: No - Immunizations Immunizations are current?: Yes - POLST Patient has POLST: No POLST Status: Full Code PD ED PE NORMAL - Vitals Vital signs reviewed: Yes - General General: Alert and oriented X 3, No acute distress - Abdomen Abdomen: Soft, Non tender, Other (No abdominal tenderness and no flank tenderness) - Neuro Neuro: Alert and oriented X 3, Normal speech Results - Vitals Vitals: Vital Signs - 24 hr 10/08/20 17:20 Temperature 36 C L Heart Rate 62 Respiratory 16 Rate Blood Pressure 129/63 O2 Saturation 99 Oxygen O2 Source Room air - Labs Labs: Laboratory Tests 10/08/20 17:30 Urine Color YELLOW Urine Clarity HAZY Urine pH 6.0 Ur Specific [place] <=1.005 Urine Protein NEGATIVE Urine Glucose (UA) NEGATIVE Urine Ketones NEGATIVE Urine Occult Blood NEGATIVE Urine Nitrite NEGATIVE Urine Bilirubin NEGATIVE Urine Urobilinogen 0.2 (NORMAL) Ur Leukocyte Esterase MODERATE H Urine RBC 0-5 Urine WBC >25 H Ur Squamous Epith Cells MOD Squamous H Urine Bacteria Rare Ur Microscopic Review INDICATED Urine Culture Comments NOT INDICATED PD MEDICAL DECISION MAKING - ED course ED course: Offered to repeat blood work but she had blood work done earlier in the day which she declined. She is given Rocephin 1 g IM here. Departure - Departure Disposition: Home, Self Care Clinical Impression: UTI (urinary tract infection) Qualifiers: Urinary tract infection type: acute cystitis Hematuria presence: without hematuria Qualified Code(s): N30.00 - Acute cystitis without hematuria Condition: Good Record reviewed to determine appropriate education?: Yes Instructions: ED UTI Cystitis Female Prescriptions: Cefdinir 300 mg PO BID #20 cap Comments: Since you are having frequent urinary infections and have a history of the renal transplant it is reasonable to follow-up at some point with your digital performance analyst to discuss this. Return for new or worsening symptoms. We will culture your urine, the results should be done in 48-72 hours. If an antibiotic change is necessary we will call you. Return if worse in the meantime, especially if you develop increasing flank pain, fevers, or cannot keep down the medication.
[2020-10-08 19:07] VITALS: BP 142/65
== END 2020-10-08 19:06 | disposition home or self-care (01) ==
LOC: ED 17:04
DX: N30.00 Acute cystitis without hematuria (principal); Z94.0 Kidney transplant status; I10 Essential (primary) hypertension; E11.9 Type 2 diabetes mellitus without complications; Z79.4 Long term (current) use of insulin; Z79.82 Long term (current) use of aspirin
CPT/HCPCS: 81001; 81003; 87086; 87181; 96372; 99283

== ENCOUNTER 2022-11-12 00:22 | Emergency (ER) | payer MEDICARE, OTHER ==
[2022-11-12 01:04] LABS: BILIRUBIN,URINE NEGATIVE (NEGATIVE); GLUCOSE, URINE (UA) NEGATIVE (NEGATIVE); KETONES,URINE (UA) NEGATIVE (NEGATIVE); LEUKOCYTE ESTERASE, URINE LARGE (NEGATIVE); NITRITE,URINE NEGATIVE (NEGATIVE); OCCULT BLOOD,URINE SMALL (NEGATIVE); PROTEIN,URINE 30 mg/dL (NEGATIVE); UROBILINOGEN,URINE 0.2 (NORMAL) E.U./dL (NORMAL)
[2022-11-12 01:15] LABS: BACTERIA,URINE Moderate /HPF (None Seen); CLARITY,URINE CLOUDY (CLEAR); SQUAMOUS EPITHELIAL CELL,UR NONE SEEN (<= Few)
[2022-11-12 02:38] VITALS: BP 171/53; O2SAT 94
--- NOTE | 2022-11-15 21:09 | ED Physician Documentation ---
History of Present Illness - Stated complaint Stated Complaint: FEMALE - Chief complaint Chief Complaint: Neuro - History obtained from History obtained from: Patient, Family (son) - Additonal information Additional information: 62yF presents to the ED with viral URI symptoms X 1 week with intermittent confusion reported by son, who states he suspects she has uti. Patient is AOX4, denies dysuria but may have some increased frequency. +nonproductive cough, sore throat. denies fever, n/v/d abd pain, cp soa. Review of Systems Constitutional: reports: Fatigue. denies: Fever Ears: denies: Ear pain, Drainage/discharge Nose: reports: Rhinorrhea / runny nose, Congestion Throat: reports: Sore throat Cardiac: denies: Chest pain / pressure Respiratory: reports: Cough. denies: Dyspnea GI: denies: Abdominal Pain, Nausea, Vomiting, Diarrhea : reports: Frequency. denies: Dysuria, Hematuria Musculoskeletal: denies: Back pain PD PAST MEDICAL HISTORY - Past Medical History Cardiovascular: Hypertension Respiratory: None Neuro: None Endocrine/Autoimmune: Type 2 diabetes GI: None MANAGER PROJECT MANAGEMENT: Other : Dialysis, Renal insuffiency HEENT:  Psych: None Musculoskeletal: None Derm: None - Past Surgical History Past Surgical History: Yes General:  Cardiovascular: Other HEENT: Cataracts, Other - Present Medications Home Medications: Ambulatory Orders Medication Instructions Recorded Confirmed Aspirin 81 mg PO DAILY 11/28/17 11/14/22 Cinacalcet HCl [Sensipar] 60 mg PO DAILY 03/26/20 11/14/22 Insulin Glargine [Lantus Solostar] 31 units SUBQ DAILY 03/26/20 11/14/22 Insulin Lispro [Humalog] 3 - 8 units SUBQ TIDWM 03/26/20 11/14/22 Mycophenolate Sodium [Myfortic] 180 mg PO BID 03/26/20 11/14/22 Tacrolimus [Prograf] 3 mg PO DAILY 03/26/20 11/14/22 carvediloL [Coreg] 12.5 mg PO BID 03/26/20 11/14/22 gemfibroziL [Lopid] 600 mg PO Q48H 03/26/20 11/14/22 predniSONE [Prednisone] 5 mg PO DAILY 03/26/20 11/14/22 Cholecalciferol (Vitamin D3) 50 mcg PO DAILY 11/14/22 11/14/22 [Vitamin D3] Cranberry Fruit Extract [Cranberry] 500 mg PO DAILY 11/14/22 11/14/22 Latanoprost 0.005% Ophth Drops 1 drops RIGHTEYE QPM 11/14/22 11/14/22 [Xalatan Ophth Drops] Losartan Potassium 25 mg PO DAILY 11/14/22 11/14/22 Pravastatin Sodium 20 mg PO QPM 11/14/22 11/14/22 Sodium Bicarbonate 650 mg PO TID 11/14/22 11/14/22 Tacrolimus [Prograf] 2.5 mg PO QPM 11/14/22 11/14/22 - Allergies Allergies/Adverse Reactions: Allergies Allergy/AdvReac Type Severity Reaction Status Date / Time lactose AdvReac Cramps Verified 11/14/22 14:24 - Social History Does the pt smoke?: No Smoking Status: Never smoker Does the pt drink ETOH?: No Does the pt have substance abuse?: No - Immunizations Immunizations are current?: Yes - POLST Patient has POLST: No POLST Status: Full Code PD ED PE NORMAL - Vitals Vital signs reviewed: Yes - General General: Alert and oriented X 3, No acute distress, Well developed/nourished - HEENT HEENT: Atraumatic, PERRL, EOMI, Moist mucous membranes, Pharynx benign, Other (mild oropharyngeal erythema) - Neck Neck: Supple, no meningeal sign - Cardiac Cardiac: RRR - Respiratory Respiratory: No respiratory distress, Clear bilaterally - Abdomen Abdomen: Non tender, Non distended - Back Back: No CVA TTP - Derm Derm: Normal color, Warm and dry - Extremities Extremities: No deformity, No edema - Neuro Neuro: Alert and oriented X 3, contour stitcher 2-12 intact, No motor deficit, No sensory deficit, Normal speech Eye Opening: Spontaneous Motor: Obeys Commands Verbal: Oriented GCS Score: 15 - Psych Psych: Normal mood, Normal affect Results - Vitals Vitals: Oxygen O2 Source Room air - Labs Labs: Microbiology 11/12/22 00:40 Urine Culture - Final Urine,Clean Catch Klebsiella Pneumoniae Laboratory Tests 11/12/22 11/12/22 11/12/22 00:40 01:58 02:24 POC Whole Bld Glucose 43 L* 95 Urine Color LIGHT YELLOW Urine Clarity CLOUDY Urine pH 7.0 Ur Specific [place] <=1.005 Urine Protein 30 H Urine Glucose (UA) NEGATIVE Urine Ketones NEGATIVE Urine Occult Blood SMALL H Urine Nitrite NEGATIVE Urine Bilirubin NEGATIVE Urine Urobilinogen 0.2 (NORMAL) Ur Leukocyte Esterase LARGE H Urine RBC 6-10 H Urine WBC 11-25 H Ur Squamous Epith Cells NONE SEEN Urine Bacteria Moderate H Urine Culture Comments INDICATED PD Medical Decision Making - ED course ED course: Well appearing 62yF with recent history of ongoing URI/"cold" like symptoms presents with subjective intermittent AMS reported by son, who states patient has history of uti when confused. Patient herself is alert and oriented, denies confusion. She endorses urinary frequency but no dysuria. Patient AOX4 with normal neurologic exam, HEENT c/w viral uri, and no suprapubic/cva ttp. U/a shows +leuk esterase. Given patient history of increased frequency we will treat with antibiotics. Rx sent to pharmacy. return precautions given. Plan to f/u outpatient pcp. Departure - Departure Disposition: 01 Home, Self Care Clinical Impression: Confusion, UTI (urinary tract infection) Condition: Good Instructions: ED UTI Cystitis Female Comments: You were seen in the emergency department for confusion, likely related to uti. Antibiotics were sent electronically to your pharmacy. Please follow-up with your primary care provider and return to the emergency department if you have any new or worsening symptoms or other concerns. Forms: PCP List Discharge Date/Time: 11/12/22 02:37
== END 2022-11-12 02:37 | disposition home or self-care (01) ==
LOC: ED 00:22
DX: N39.0 Urinary tract infection, site not specified (principal); E11.9 Type 2 diabetes mellitus without complications; Z79.4 Long term (current) use of insulin; I10 Essential (primary) hypertension
CPT/HCPCS: 81001; 87077; 87086; 87181; 99283

== ENCOUNTER 2022-11-13 13:29 | Inpatient (IN) | payer MEDICARE, OTHER ==
--- NOTE | 2022-11-13 14:20 | XRAY Report ---
PROCEDURE: Chest 1 View X-Ray INDICATIONS: cough TECHNIQUE: One view of the chest was acquired. COMPARISON: 07/24/2020 FINDINGS: Surgical changes and devices: None. Lungs and pleura: Generalized interstitial infiltrates are seen. Mediastinum: Mediastinal contours appear normal. Heart size is moderately enlarged. Bones and chest wall: No suspicious bony lesions. Overlying soft tissues appear unremarkable. IMPRESSION: Moderate cardiomegaly and generalized interstitial infiltrates. CHF is suspected. Reviewed by: Nahid Fernandes MD on 11/13/2022 1:19 PM AKDT Approved by: Nahid Fernandes MD on 11/13/2022 1:19 PM SALTY Station ID: [id number]
[2022-11-13] MEDS ORDERED: FUROSEMIDE 40 MG/4 ML VIAL IVP STA (14:35)
--- NOTE | 2022-11-13 14:52 | ED Physician Documentation ---
History of Present Illness - Stated complaint Stated Complaint: CONGESTION/WHEEZING - Chief complaint Chief Complaint: Resp - History obtained from History obtained from: Patient, Family - Additonal information Additional information: The patient comes to the emergency department with her family for chief complaint of dyspnea. According to family, she has had a "cold" for about past 2 weeks, per family, seems to have gotten worse over the weekend. No fevers or chills. She has had a cough and some wheezing. Patient has no history of any pulmonary disorders or CHF. No specific sick contacts. She has a history of end-stage renal disease on hemodialysis followed by a kidney transplant in July 2019. Since then, she has been on some immunosuppressants but has not had to resume dialysis. Her baseline creatinines most recently according to our system have been 1.2-1.7. She is followed by Dr. Van at [place]. The patient was placed on Keflex 2 days ago for UTI. She denies any current UTI symptoms. No nausea or vomiting. No lower extremity swelling. No other complaints at this time. 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 : Dialysis, Renal insuffiency HEENT:  Psych: None Musculoskeletal: None Derm: None - Past Surgical History Past Surgical History: Yes General:  Cardiovascular: Other HEENT: Cataracts, Other - Present Medications Home Medications: Ambulatory Orders Medication Instructions Recorded Confirmed Aspirin 81 mg PO DAILY 11/28/17 07/24/20 Cinacalcet HCl [Sensipar] 60 mg PO DAILY 03/26/20 07/24/20 Famotidine [Acid-Pep] 20 mg PO DAILY 03/26/20 07/24/20 Insulin Glargine [Lantus Solostar] 31 units SUBQ DAILY 03/26/20 07/24/20 Insulin Lispro [Humalog] 1 units SUBQ DAILY 03/26/20 07/24/20 Mycophenolate Sodium [Myfortic] 180 mg PO BID 03/26/20 07/24/20 Tacrolimus [Prograf] 2.5 mg PO BID 03/26/20 07/24/20 carvediloL [Coreg] 12.5 mg PO BID 03/26/20 07/24/20 gemfibroziL [Lopid] 600 mg PO BID 03/26/20 07/24/20 predniSONE [Prednisone] 5 mg PO DAILY 03/26/20 07/24/20 Ciprofloxacin [Cipro] 500 mg PO BID #20 tablet 07/28/20 Cefdinir 300 mg PO BID #20 cap 10/08/20 cephALEXin [Keflex] 500 mg PO Q6H #28 tab 11/12/22 - Allergies Allergies/Adverse Reactions: Allergies Allergy/AdvReac Type Severity Reaction Status Date / Time No Known Drug Allergies Allergy Verified 10/08/20 17:26 - Social History Does the pt smoke?: No Smoking Status: Never smoker Does the pt drink ETOH?: No Does the pt have substance abuse?: No - Immunizations Immunizations are current?: Yes - POLST Patient has POLST: No POLST Status: Full Code PD ED PE NORMAL - Vitals Vital signs reviewed: Yes - General General: Alert and oriented X 3, Well developed/nourished, Other (Mild respiratory distress.) - HEENT HEENT: Atraumatic, PERRL, EOMI, Moist mucous membranes - Neck Neck: Supple, no meningeal sign - Cardiac Cardiac: RRR, No murmur - Respiratory Respiratory: Other (Decreased air movement bilaterally. No distinct wheezes or rales. Labored respirations with moderate tachypnea. 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, Normal speech, Other (Answers questions appropriately.) - Psych Psych: Normal mood, Normal affect Results - Vitals Vitals: Vital Signs - 24 hr 11/13/22 11/13/22 13:34 15:58 Temperature 36.6 C Heart Rate 62 52 L Respiratory 32 H 36 H Rate Blood Pressure 153/96 H 163/88 H O2 Saturation 98 97 Oxygen O2 Source Room air - Labs Labs: Laboratory Tests 11/13/22 11/13/22 11/13/22 14:05 14:25 15:25 WBC 7.4 RBC 4.72 Hgb 9.2 L Hct 30.4 L MCV 64.4 L MCH 19.5 L MCHC 30.3 L RDW 14.6 Plt Count 223 Neut # (Auto) Not Reportable Lymph # (Auto) Not Reportable [place] # (Auto) Not Reportable Eos # (Auto) Not Reportable Baso # (Auto) Not Reportable Absolute Nucleated RBC Not Reportable Total Counted 100 Band Neuts % (Manual) 11 H Abnorm Lymph % (Manual) 0 Nucleated RBC % Not Reportable Neutrophils # (Manual) 6.7 H Lymphocytes # (Manual) 0.5 L Monocytes # (Manual) 0.1 Eosinophils # (Manual) 0.0 Basophils # (Manual) 0.0 Differential Comment MANUAL DIFFERENTIAL Platelet Estimate NORMAL (130-450,000) Platelet Morphology NORMAL APPEARANCE RBC Morph Micro Appear 2+ POIKILOCYTOSIS Sodium Potassium Chloride Carbon Dioxide Anion Gap BUN Creatinine Estimated GFR (MDRD) Glucose Calcium Total Bilirubin AST ALT Alkaline Phosphatase Troponin I High Sens B-Natriuretic Peptide Total Protein Albumin Globulin Albumin/Globulin Ratio Lipase Urine Color YELLOW Urine Clarity CLEAR Urine pH 6.5 Ur Specific [place] 1.015 Urine Protein 100 H Urine Glucose (UA) NEGATIVE Urine Ketones NEGATIVE Urine Occult Blood TRACE-INTA Urine Nitrite NEGATIVE Urine Bilirubin NEGATIVE Urine Urobilinogen 0.2 (NORMAL) Ur Leukocyte Esterase SMALL H Urine RBC 0-5 Urine WBC 11-25 H Ur Squamous Epith Cells FEW Squamous Urine Bacteria Few Urine Casts 0-2 Hyaline Casts Ur Microscopic Review INDICATED Urine Culture Comments INDICATED Nasal Adenovirus (PCR) NOT DETECTED Nasal B. parapertussis DNA (PCR) NOT DETECTED Nasal Coronavir 229E PCR NOT DETECTED Nasal Coronavir HKU1 PCR NOT DETECTED Nasal Coronavir NL63 PCR NOT DETECTED Nasal Coronavir OC43 PCR NOT DETECTED Nasal Enterovir/Rhinovir PCR NOT DETECTED Nasal Influenza B PCR NOT DETECTED Nasal Influenza A PCR NOT DETECTED Nasal Parainfluen 1 PCR NOT DETECTED Nasal Parainfluen 2 PCR NOT DETECTED Nasal Parainfluen 3 PCR NOT DETECTED Nasal Parainfluen 4 PCR NOT DETECTED Nasal RSV (PCR) NOT DETECTED Nasal B.pertussis DNA PCR NOT DETECTED Nasal C.pneumoniae (PCR) NOT DETECTED Juan Human Metapneumo PCR NOT DETECTED Nasal M.pneumoniae (PCR) NOT DETECTED Nasal SARS-CoV-2 (PCR) DETECTED A 11/13/22 11/13/22 11/13/22 15:25 15:25 15:25 WBC RBC Hgb Hct MCV MCH MCHC RDW Plt Count Neut # (Auto) Lymph # (Auto) [place] # (Auto) Eos # (Auto) Baso # (Auto) Absolute Nucleated RBC Total Counted Band Neuts % (Manual) Abnorm Lymph % (Manual) Nucleated RBC % Neutrophils # (Manual) Lymphocytes # (Manual) Monocytes # (Manual) Eosinophils # (Manual) Basophils # (Manual) Differential Comment Platelet Estimate Platelet Morphology RBC Morph Micro Appear Sodium 110 L* Potassium 4.1 Chloride 82 L Carbon Dioxide 18 L Anion Gap 10.0 BUN 20 Creatinine 1.9 H Estimated GFR (MDRD) 27 L Glucose 83 Calcium 8.6 Total Bilirubin 0.5 AST 26 ALT 8 L Alkaline Phosphatase 83 Troponin I High Sens 12.6 B-Natriuretic Peptide 232 H Total Protein 6.6 Albumin 3.9 Globulin 2.7 Albumin/Globulin Ratio 1.4 Lipase < 10 L Urine Color Urine Clarity Urine pH Ur Specific [place] Urine Protein Urine Glucose (UA) Urine Ketones Urine Occult Blood Urine Nitrite Urine Bilirubin Urine Urobilinogen Ur Leukocyte Esterase Urine RBC Urine WBC Ur Squamous Epith Cells Urine Bacteria Urine Casts Ur Microscopic Review Urine Culture Comments Nasal Adenovirus (PCR) Nasal B. parapertussis DNA (PCR) Nasal Coronavir 229E PCR Nasal Coronavir HKU1 PCR Nasal Coronavir NL63 PCR Nasal Coronavir OC43 PCR Nasal Enterovir/Rhinovir PCR Nasal Influenza B PCR Nasal Influenza A PCR Nasal Parainfluen 1 PCR Nasal Parainfluen 2 PCR Nasal Parainfluen 3 PCR Nasal Parainfluen 4 PCR Nasal RSV (PCR) Nasal B.pertussis DNA PCR Nasal C.pneumoniae (PCR) Juan Human Metapneumo PCR Nasal M.pneumoniae (PCR) Nasal SARS-CoV-2 (PCR) - Rads (name of study) Chest x-ray Relevant Findings:: Final report received, See rad report (Moderate cardiomegaly and generalized interstitial infiltrates; CHF suspected.) PD Medical Decision Making - ED course Complexity details: reviewed old records, reviewed results, re-evaluated patient, considered differential, d/w patient, d/w family ED course: The patient appeared to be in mild respiratory distress with some labored respirations and was worked up with chest x-ray, labs, and respiratory PCR panel. Her chest x-ray showed diffuse infiltrates which the radiologist felt was concerning for CHF in the setting of cardiomegaly. As such, I did give the patient a dose of Lasix IV. The patient's laboratory studies showed a creatinine slightly elevated from baseline at 1.9, a normal white blood cell count, sodium of 110,and BNP of just over 200. Respiratory PCR panel was positive for COVID. The patient's oxygen saturation remained in the mid to upper 90s throughout her stay in the emergency department, but given her degree of laboring of respirations, as well as tachypnea, not to mention her hyponatremia, I felt she should be admitted to the hospital. I discussed the case with Dr. Villa who did accept the patient for admission. I discussed the plan with the family and the patient, who are agreeable. Departure - Departure Disposition: 66 [facility] DC/Xfer Clinical Impression: Hyponatremia, COVID-19 Condition: Serious
[2022-11-13 15:14] LABS: BILIRUBIN,URINE NEGATIVE (NEGATIVE); GLUCOSE, URINE (UA) NEGATIVE (NEGATIVE); KETONES,URINE (UA) NEGATIVE (NEGATIVE); LEUKOCYTE ESTERASE, URINE SMALL (NEGATIVE); NITRITE,URINE NEGATIVE (NEGATIVE); OCCULT BLOOD,URINE TRACE-INTA (NEGATIVE); PH,URINE 6.5 PH (5.0-7.5); PROTEIN,URINE 100 mg/dL (NEGATIVE); UROBILINOGEN,URINE 0.2 (NORMAL) E.U./dL (NORMAL)
[2022-11-13 15:15] LABS: CLARITY,URINE CLEAR (CLEAR)
[2022-11-13 15:23] LABS: BACTERIA,URINE Few /HPF (None Seen); CASTS, URINE 0-2 Hyaline Casts /LPF; RBC,URINE 0-5 /HPF (0-5); SQUAMOUS EPITHELIAL CELL,UR FEW Squamous (<= Few)
[2022-11-13 15:34] LABS: BASOPHILS % (AUTO) 0.1 %; HCT - HEMATOCRIT 30.4 % (37.0-47.0); HGB - HEMOGLOBIN 9.2 g/dL (12.0-16.0); LYMPHOCYTES % (AUTO) 6.8 %; MEAN CORPUSCULAR HEMOGLOBIN 19.5 pg (27.0-31.0); MEAN CORPUSCULAR HGB CONC 30.3 g/dL (32.0-36.0); MEAN CORPUSCULAR VOLUME 64.4 fL (81.0-99.0); MONOCYTES % (AUTO) 5.3 %; NEUTROPHILS % (AUTO) 85.9 %; PLT - PLATELET COUNT 223 10^3/uL (130-450); RED BLOOD COUNT 4.72 10^6/uL (4.20-5.40); RED CELL DISTRIBUTION WIDTH 14.6 % (12.0-15.0); WHITE BLOOD COUNT 7.4 x10^3/uL (4.8-10.8)
[2022-11-13 15:36] LABS: ABNORMAL LYMPHS % (MANUAL) 0 %
[2022-11-13 15:36] LABS: B. PARAPERTUSSIS- RESP PCR PAN NOT DETECTED; B. PERTUSSIS- RESP PCR PANEL NOT DETECTED; C. PNEUMONIAE- RESP PCR PANEL NOT DETECTED; CORONAVIRUS 229E-RESP PCR NOT DETECTED; CORONAVIRUS HKU1-RESP PCR NOT DETECTED; CORONAVIRUS NL63-RESP PCR NOT DETECTED; CORONAVIRUS OC43-RESP PCR NOT DETECTED; HUMAN METAPNEUMOVIRUS NOT DETECTED; INFLUENZA A- RESP PCR PANEL NOT DETECTED; INFLUENZA B - RESP PCR PANEL NOT DETECTED; M. PNEUMONIAE- RESP PCR PANEL NOT DETECTED; PARAINFLUENZA VIRUS 1 NOT DETECTED; PARAINFLUENZA VIRUS 2 NOT DETECTED; PARAINFLUENZA VIRUS 3 NOT DETECTED; PARAINFLUENZA VIRUS 4 NOT DETECTED; RHINOVIRUS/ENTEROVIRUS NOT DETECTED; RSV- RESP PCR PANEL NOT DETECTED
[2022-11-13 15:40] LABS: SARS-CoV-2 -RESP PCR PANEL DETECTED
[2022-11-13 15:46] LABS: ALBUMIN 3.9 g/dL (3.2-5.5)
[2022-11-13 15:57] LABS: SODIUM 110 mmol/L (135-145)
[2022-11-13 15:59] LABS: ALBUMIN/GLOBULIN RATIO 1.4 (1.0-2.2); ALKALINE PHOSPHATASE 83 IU/L (42-121); ALT ALANINE AMINOTRANSFERASE 8 IU/L (10-60); AST ASPARTATE AMINOTRANSFERASE 26 IU/L (10-42); BILIRUBIN,TOTAL 0.5 mg/dL (0.2-1.0); BUN - BLOOD UREA NITROGEN 20 mg/dL (6-20); CALCIUM 8.6 mg/dL (8.5-10.3); CARBON DIOXIDE - CO2 18 mmol/L (21-32); CHLORIDE 82 mmol/L (101-111); CREATININE 1.9 mg/dL (0.6-1.3); GFR - MDRD 27 (>89); GLUCOSE 83 mg/dL (74-104); LIPASE < 10 U/L (11-82); POTASSIUM 4.1 mmol/L (3.5-4.5); TOTAL PROTEIN 6.6 g/dL (6.4-8.9)
[2022-11-13 16:01] LABS: BAND NEUTROPHILS % (MANUAL) 11 %; DIFFERENTIAL COMMENT MANUAL DIFFERENTIAL; LYMPHOCYTES # (MANUAL) 0.5 10^3/uL (1.5-3.5); LYMPHOCYTES % (MANUAL) 7 %; MONOCYTES # (MANUAL) 0.1 10^3/uL (0.0-1.0); NEUTROPHILS # (MANUAL) 6.7 10^3/uL (1.5-6.6); PLATELET ESTIMATE, MANUAL NORMAL (130-450,000) (NORMAL); PLATELET MORPHOLOGY NORMAL APPEARANCE (NORMAL)
[2022-11-13] MEDS ORDERED: ACETAMINOPHEN 325 MG TABLET PO PRN (16:30)
[2022-11-13] MEDS ORDERED: ONDANSETRON 4 MG/2 ML VIAL IVP PRN (16:30)
[2022-11-13] MEDS ORDERED: SODIUM CHLORIDE FLUSH 0.9% 10 ML SYRINGE IVP PRN (16:30)
[2022-11-13] MEDS ORDERED: SODIUM CHLORIDE 3% HYPERTONIC 100 ML IV SCH (17:00)
[2022-11-13] MEDS ORDERED: SODIUM CHLORIDE 3% HYPERTONIC 0 ML IV SCH (17:00)
--- NOTE | 2022-11-13 17:13 | HISTORY & PHYSICAL EXAMINATION ---
Chief Complaint - Chief Complaint Chief Complaint: SOA, AMS History of Present Illness - Admitted From Admitted From:: ED - History Obtained From History obtained from: ED provider, chart review and at bedside - History of Present Illness HPI Comment/Other: This is a 62-year-old female of [place] origin who has a history of diabetes mellitus, hypertension, chronic kidney disease and used to be on renal dialysis, then she got a kidney transplant in July 2019. She gets frequent UTIs, in 04/02 and 07/31 she had Serratia UTI, and in 09/30 had E coli UTI. She also has had admission for hyponatremia felt to be from HCTZ which was recommended to be stopped. Her last creatinine has been running 1.2-1.7. She is followed by Dr. Dalal at kidney transplant center. The patient came to the ER yesterday evening 11/12/22, complaining of feeling weak for 1-2 weeks, with somnolence and confusion and the son reported that she usually has a UTI when she gets confused. There is no ER provider note from that ER visit in [facility] to see, but looking at other documentation, she had a serum glucose in the 40s, her urinalysis was abnormal and she was felt to have a UTI. She was discharged to go home with a prescription for Keflex. Patient presented back to the ER about 12 hours later, in the afternoon today 11/13/22, with complaint of rapid onset shortness of breath and nasal congestion. She has taken about 2 doses of the prescribed Keflex. In the ER now she was noted to have a respiratory rate of 32 but otherwise stable vital signs with blood pressure 163/88, heart rate 52, O2 saturation 96% on room air. Her BNP is 232, the last BNP was 8 years ago and was normal at 20. Her chest x-ray showed cardiomegaly and fluffy interstitial infiltrates consistent with either atypical pneumonia or CHF. Her Respiratory PCR is positive for COVID. She was not tested for COVID yesterday. Her serum sodium is 110 and creatinine is 1.9. She did not have a complete BMP done yesterday. The ED provider spoke to me about this patient. She will be admitted to the ICU for treating severe hyponatremia, confusion, recent hypoglycemia in a Diabetic, UTI, MAY, and COVID-pneumonia in a patient who is immunocompromised and has a renal transplant. She is in critical condition. Her CODE status is Full Code. 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 Mom had DM, HTN. 3 siblings and 2 . One of stroke, one of unknown reasons. Sister has DM. 3 sons all have HTN but no DM, CAD, thyroid, cancer Living arrangement: At home Living Situation: With spouse/s.o., With family Social History Notes: Patient is . Originally from the [facility]. Met her there. 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 Living on [facility] with her who is retired [email or web address] and her son. 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 Her son lives with them and he takes care of her. Used to smoke a third of a pack per day for 20 years and quit in 2016. No history of drug or alcohol abuse - Substance History Use: Uses substance without health or social issues: NONE - POLST Patient has POLST: No POLST Status: Full Code Meds/Allgy - Home Medications Home Medications: Ambulatory Orders Medication Instructions Recorded Confirmed Aspirin 81 mg PO DAILY 11/28/17 07/24/20 Cinacalcet HCl [Sensipar] 60 mg PO DAILY 03/26/20 07/24/20 Famotidine [Acid-Pep] 20 mg PO DAILY 03/26/20 07/24/20 Insulin Glargine [Lantus Solostar] 31 units SUBQ DAILY 03/26/20 07/24/20 Insulin Lispro [Humalog] 1 units SUBQ DAILY 03/26/20 07/24/20 Mycophenolate Sodium [Myfortic] 180 mg PO BID 03/26/20 07/24/20 Tacrolimus [Prograf] 2.5 mg PO BID 03/26/20 07/24/20 carvediloL [Coreg] 12.5 mg PO BID 03/26/20 07/24/20 gemfibroziL [Lopid] 600 mg PO BID 03/26/20 07/24/20 predniSONE [Prednisone] 5 mg PO DAILY 03/26/20 07/24/20 Ciprofloxacin [Cipro] 500 mg PO BID #20 tablet 07/28/20 Cefdinir 300 mg PO BID #20 cap 10/08/20 cephALEXin [Keflex] 500 mg PO Q6H #28 tab 11/12/22 - Allergies Allergies/Adverse Reactions: Allergies Allergy/AdvReac Type Severity Reaction Status Date / Time No Known Drug Allergies Allergy Verified 10/08/20 17:26 Review of Systems - Constitutional Constitutional: reports: Weakness, Poor appetite - Ears, Nose & Throat Ears, Nose & Throat: reports: Nasal congestion - Respiratory Respiratory: reports: Cough, SOB at rest - Neurological Neurological: reports: Other (Sleepy) - All Other Systems All Other Systems: reports: Reviewed and negative Exam - Vital Signs Reviewed Vital Signs: Yes Vital Signs: Vital Signs x48h Temp Pulse Resp BP Pulse Ox 11/13/22 15:58 52 L 36 H 163/88 H 97 11/13/22 13:34 36.6 C 62 32 H 153/96 H 98 - Physical Exam General Appearance: positive: Mild distress (resp distress, using accessory mu scles) Eyes Bilateral: positive: Normal inspection, EOMI ENT: positive: ENT inspection nml, Dry mucous membranes Neck: positive: Nml inspection, No JVD Respiratory: positive: Other (Poor air movement in all lung whitney) Cardiovascular: positive: Regular rate & rhythm, No murmur Abdomen: positive: Non-tender, No distention Skin: positive: Warm, Dry Extremities: positive: Non-tender, No pedal edema Neurologic/Psychiatric: positive: Motor nml, Disoriented to place, Disoriented to time Conclusion/Plan - Problem List (1) Hyponatremia Conclusion/Plan: She was in the ER yesterday but did not have serum sodium checked. There is a remote history of hyponatremia felt to be from HCTZ. With this presentation she probably has hypovolemic hyponatremia since she has been somnolent, and not eating. She does not have a hyperglycemia to explain this as "pseudohyponatremia". Her hyponatremia is likely contributing to the confusion Plan: Admit to the ICU I will order 100 cc of 3% saline iv. We will check her serum sodium in 2 hours on this. We will then switch her to iv NS and follow her serum sodium every 4 hours. The goal be to correct the sodium 6 to 8 mEq over 12 to 24 hours. (2) Hypoglycemia associated with diabetes Conclusion/Plan: Her labs show that she had a serum sodium of 40 when she was in the ER yesterday. I cannot find what was ordered to treat this for her This could be a cause of the confusion that the son reported Plan: Will order a Diabetic diet I will order hypoglycemia protocol in a diabetic patient Begin fingerstick checks before meals and at bedtime and sliding scale Insulin coverage Await the reconciled med list regarding her usual diabetic meds and doses (3) COVID-19 Conclusion/Plan: At presentation, she is not hypoxic but is very tachypneic with respiratory rate of 32, using accessory muscles of respiration. Her chest x-ray does show changes typical of a COVID-pneumonia with interstitial infiltrates Plan: Obtain a BNP and follow this daily. We will also rule out an OH with a set of 2 troponins in case the CXR findings could be from pulmonary edema Obtain an EKG I will order respiratory isolation I will order an ABG. If she has desaturation, we will start her on Remdesivir per protocol and IV Decadron per protocol Given her immunocompromise state, she has a higher risk of a poor outcome from this COVID infection. I told the patient, and at bedside, that she is critically ill. (4) UTI (urinary tract infection) Conclusion/Plan: The UA from yesterday's ER visit is abnormal and was sent for culture. That result is still pending. This UTI is likely contributing to the confusion Plan: We will check her lactic acid level and get a blood cx Follow her WBC daily I will order empiric IV antibiotics using ceftriaxone, based on the last urine culture which grew E. coli that was pansensitive Await the latest urine culture results to tailor antibiotics Give Tylenol for pain or fever (5) Acute kidney injury superimposed on chronic kidney disease Conclusion/Plan: Even after her kidney transplant her creatinine has been running 1.2-1.7. Currently creatinine is 1.9 This could be from volume depletion given the recent poor oral intake. This could be from cardiorenal syndrome if she really has systolic heart failure showing up as pulmonary edema Plan: Avoid nephrotoxins Follow BMP daily (6) Microcytic anemia Conclusion/Plan: This chart states she has a history of iron deficiency anemia. She comes in now with an MCV of 64 and hemoglobin of 9.2 Plan: We will await her reconciled med list and resume iron if she is on it. We will check stool for guaiac We will check her iron panel I started her on Protonix daily AC for stress ulcer prevention (7) Renal transplant recipient Conclusion/Plan: She got a kidney in July 2019. She is followed by Dr Dalal at kidney transplant center She is on several immunosuppressants, which give her increased risk of poor outcome with a COVID infection Plan: Await the reconciled med list. If she is on steroids these need to be continued so she does not stop them suddenly and get Addisonian crisis If she becomes hypoxic, Decadron IV will be started - Lab Results Fish Bones: 11/13/22 15:25 11/13/22 15:25 - Diagnostic Imaging Results Diagnostic Imaging Results: positive: Final report reviewed - EKG Results EKG Interpreted Independently: Yes EKG Comparison: Unchanged from prior EKG EKG Findings: Sinus rhythm, rate 55, LVH voltage. Similar to EKG from Mar 2020. - Other Other Results/Comments: Attestation: The patient is expected to be hospitalized for greater than 2 midnights and is expected to be discharged or transferred to another facility within 96 hours: Yes.
[2022-11-13] MEDS: INSULIN LISPRO 300 UNIT/3 ML PEN SUBQ SCH ×2 (17:42→20:19)
[2022-11-13] MEDS: SODIUM CHLORIDE FLUSH 0.9% 10 ML SYRINGE IVP SCH (17:43)
[2022-11-13 18:04] LABS: ABG HCO3 21.5 mmol/L (22.0-26.0); ABG PCO2 38 mmHg (34-45); ABG PH 7.37 (7.35-7.45); ABG PO2 67 mmHg (80-100)
[2022-11-13 18:05] LABS: ABG BASE EXCESS -3.4 mmol/L (-2.0-3.0); ABG OXYGEN SATURATION 94 % (94-98); ABG TCO2 22.6 MMOL/L (21.0-29.0); ALLEN TEST POSITIVE
[2022-11-13] MEDS ORDERED: DEXAMETHASONE 20 MG/5 ML VIAL IVP ONE (18:06)
[2022-11-13] MEDS ORDERED: DEXAMETHASONE 10 MG/ML VIAL IVP ONE (19:00)
[2022-11-13] MEDS: TACROLIMUS 0.5 MG CAPSULE PO SCH (20:19)
[2022-11-13] MEDS: SODIUM BICARBONATE 650 MG TABLET PO SCH (20:19)
[2022-11-13] MEDS: HEPARIN 5,000 UNIT/ML VIAL SUBQ SCH (20:24)
[2022-11-13] MEDS ORDERED: SODIUM CHLORIDE 0.9% 1,000 ML IV SCH (20:30)
[2022-11-13] MEDS: carvediloL 12.5 MG TABLET PO SCH (21:56)
[2022-11-14] MEDS: SODIUM CHLORIDE FLUSH 0.9% 10 ML SYRINGE IVP SCH ×3 (03:37→17:02)
[2022-11-14 05:30] LABS: HCT - HEMATOCRIT 28.7 % (37.0-47.0); HGB - HEMOGLOBIN 8.7 g/dL (12.0-16.0); LYMPHOCYTES # (AUTO) 0.4 10^3/uL (1.5-3.5); LYMPHOCYTES % (AUTO) 8.4 %; MEAN CORPUSCULAR HEMOGLOBIN 19.4 pg (27.0-31.0); MEAN CORPUSCULAR HGB CONC 30.3 g/dL (32.0-36.0); MEAN CORPUSCULAR VOLUME 64.1 fL (81.0-99.0); MONOCYTES # (AUTO) 0.3 10^3/uL (0.0-1.0); MONOCYTES % (AUTO) 5.1 %; NEUTROPHILS # (AUTO) 4.4 10^3/uL (1.5-6.6); NEUTROPHILS % (AUTO) 84.9 %; PLT - PLATELET COUNT 228 10^3/uL (130-450); RED BLOOD COUNT 4.48 10^6/uL (4.20-5.40); RED CELL DISTRIBUTION WIDTH 14.7 % (12.0-15.0); WHITE BLOOD COUNT 5.1 x10^3/uL (4.8-10.8)
[2022-11-14 05:33] LABS: CALCIUM, IONIZED 1.05 mmol/L (1.15-1.33); VBG PH 7.335 (7.31-7.41)
[2022-11-14 05:35] LABS: PLATELET ESTIMATE, MANUAL NORMAL (130-450,000) (NORMAL); PLATELET MORPHOLOGY NORMAL APPEARANCE (NORMAL); RBC MORPHOLOGY (MULTIPLE) 1+ MICROCYTOSIS (NORMAL); SLIDE REVIEW? Indicated; WBC MORPHOLOGY (MULTIPLE) NORMAL APPEARANCE (NORMAL)
[2022-11-14 05:45] LABS: MAGNESIUM 1.3 mg/dL (1.7-2.3); PHOSPHORUS 4.7 mg/dL (2.5-5.0)
[2022-11-14 05:46] LABS: CALCIUM 8.2 mg/dL (8.5-10.3); POTASSIUM 3.7 mmol/L (3.5-4.5)
[2022-11-14] MEDS ORDERED: POTASSIUM CHLORIDE 20 MEQ TABLET PO ONE (05:50)
[2022-11-14] MEDS ORDERED: FUROSEMIDE 40 MG/4 ML VIAL IVP SCH (06:00)
[2022-11-14 06:02] LABS: ESTIMATED AVERAGE GLUCOSE 134 mg/dL (70-100); HEMOGLOBIN A1c% 6.3 % (4.27-6.07)
[2022-11-14] MEDS: MAGNESIUM SULFATE 2 GRAM 2 GM/50 ML BAG IV SCH ×2 (06:30→07:14)
[2022-11-14] MEDS: PANTOPRAZOLE 40 MG TABLET PO SCH (06:37)
[2022-11-14] MEDS: CALCIUM CARBONATE CHEW 500 MG TABLET PO SCH ×4 (06:43→16:11)
[2022-11-14] MEDS: ASPIRIN CHEW 81 MG TABLET PO SCH (08:20)
[2022-11-14] MEDS: MYCOPHENOLATE SODIUM 180 MG PO SCH ×2 (08:20→21:19)
[2022-11-14] MEDS: gemfibroziL 600 MG TABLET PO SCH (08:20)
[2022-11-14] MEDS: SODIUM BICARBONATE 650 MG TABLET PO SCH ×3 (08:20→21:20)
[2022-11-14] MEDS: CHOLECALCIFEROL 400 UNIT TABLET PO SCH ×3 (08:20→21:20)
[2022-11-14] MEDS: carvediloL 12.5 MG TABLET PO SCH (08:21)
[2022-11-14] MEDS: INSULIN LISPRO 300 UNIT/3 ML PEN SUBQ SCH ×4 (08:22→21:20)
[2022-11-14] MEDS: HEPARIN 5,000 UNIT/ML VIAL SUBQ SCH ×2 (08:22→21:19)
[2022-11-14] MEDS: DEXAMETHASONE 4 MG/ML VIAL IVP SCH (08:22)
[2022-11-14] MEDS: INSULIN GLARGINE-YFGN 300 UNIT/3 ML PEN SUBQ SCH (08:31)
[2022-11-14] MEDS: carvediloL 3.125 MG TABLET PO SCH ×2 (08:32→21:22)
[2022-11-14] MEDS: TACROLIMUS 0.5 MG CAPSULE PO SCH ×2 (08:37→21:20)
--- NOTE | 2022-11-14 08:44 | PROVIDER PROGRESS NOTE ---
Subjective - Subjective Pt reports feeling: Improved (Patient is hungry and wants her food advanced from pured. RN says she is tolerating her intake) Objective - Vital Signs/Intake & Output Reviewed Vital Signs: Yes Vital Signs: Vital Signs Temp Pulse Resp BP Pulse Ox O2 Flow Rate 11/14/22 08:00 36.8 C 54 L 16 118/50 L 94 1 11/14/22 07:00 55 L 19 132/57 H 97 1 11/14/22 05:00 36.7 C 56 L 19 136/58 H 98 1 Intake & Output: Intake & Output 11/11/22 11/12/22 11/13/22 11/14/22 23:59 23:59 23:59 23:59 Intake Total 265 286.667 Output Total 650 1400 Balance -385 -1113.333 - Objective General Appearance: positive: No acute distress (Patient seen remotely because in isolation) Neck: positive: Nml inspection Respiratory: positive: No respiratory distress Cardiovascular: positive: Regular rate & rhythm Abdomen: positive: No distention Extremities: positive: Non-tender - Lab Results Fish Bones: 11/14/22 04:44 11/15/22 11:28 Other Labs: Lab Results x24hrs 11/14/22 11/14/22 11/14/22 Range/Units 08:06 04:44 04:44 WBC (4.8-10.8) x10^3/uL RBC (4.20-5.40) 10^6/uL Hgb (12.0-16.0) g/dL Hct (37.0-47.0) % MCV (81.0-99.0) fL MCH (27.0-31.0) pg MCHC (32.0-36.0) g/dL RDW (12.0-15.0) % Plt Count (130-450) 10^3/uL Neut # (Auto) Lymph # (Auto) [place] # (Auto) Eos # (Auto) Baso # (Auto) Absolute Nucleated RBC Total Counted Band Neuts % (Manual) (0 - 10) % Abnorm Lymph % (Manual) % Nucleated RBC % Neutrophils # (Manual) (1.5-6.6) 10^3/uL Lymphocytes # (Manual) (1.5-3.5) 10^3/uL Monocytes # (Manual) (0.0-1.0) 10^3/uL Eosinophils # (Manual) (0-0.7) 10^3/uL Basophils # (Manual) (0-0.1) 10^3/uL Differential Comment Manual Slide Review WBC Morphology (NORMAL) Platelet Estimate (NORMAL) Platelet Morphology (NORMAL) RBC Morph Micro Appear (NORMAL) Bld Gas Analysis Time Sample Site ABG pH (7.35-7.45) ABG pCO2 (34-45) mmHg ABG pO2 (80-100) mmHg ABG HCO3 (22.0-26.0) mmol/L ABG Total CO2 (21.0-29.0) MMOL/L ABG O2 Saturation (94-98) % ABG Base Excess (-2.0-3.0) mmol/L Jovon Test VBG pH 7.335 (7.31-7.41) Ionized Calcium 1.05 L (1.15-1.33) mmol/L Room Air Sodium (135-145) mmol/L Potassium (3.5-4.5) mmol/L Chloride (101-111) mmol/L Carbon Dioxide (21-32) mmol/L Anion Gap (6-13) BUN (6-20) mg/dL Creatinine (0.6-1.3) mg/dL Estimated GFR (MDRD) (>89) Glucose (74-104) mg/dL POC Whole Bld Glucose 86 (70 - 100) mg/dL Estimat Average Glucose (70-100) mg/dL Hemoglobin A1c % (4.27-6.07) % Lactic Acid (0.5-2.2) mmol/L Calcium (8.5-10.3) mg/dL Phosphorus (2.5-5.0) mg/dL Magnesium (1.7-2.3) mg/dL Iron (50-212) ug/dL TIBC (250-450) ug/dL % Saturation (20-50) % Transferrin (203-362) mg/dL Total Bilirubin (0.2-1.0) mg/dL AST (10-42) IU/L ALT (10-60) IU/L Alkaline Phosphatase (42-121) IU/L Troponin I High Sens (2.3-14.8) ng/L B-Natriuretic Peptide 219 H (5-100) pg/mL Total Protein (6.4-8.9) g/dL Albumin (3.2-5.5) g/dL Globulin (2.1-4.2) g/dL Albumin/Globulin Ratio (1.0-2.2) Lipase (11-82) U/L TSH (0.34-5.60) uIU/mL Urine Color Urine Clarity (CLEAR) Urine pH (5.0-7.5) PH Ur Specific [place] (1.002-1.030) Urine Protein (NEGATIVE) mg/dL Urine Glucose (UA) (NEGATIVE) mg/dL Urine Ketones (NEGATIVE) mg/dL Urine Occult Blood (NEGATIVE) Urine Nitrite (NEGATIVE) Urine Bilirubin (NEGATIVE) Urine Urobilinogen (NORMAL) E.U./dL Ur Leukocyte Esterase (NEGATIVE) Urine RBC (0-5) /HPF Urine WBC (0-5) /HPF Ur Squamous Epith Cells (<= Few) Urine Bacteria (None Seen) /HPF Urine Casts /LPF Ur Microscopic Review Urine Culture Comments Urine Sodium mmol/L Nasal Adenovirus (PCR) Nasal B. parapertussis DNA (PCR) Nasal Coronavir 229E PCR Nasal Coronavir HKU1 PCR Nasal Coronavir NL63 PCR Nasal Coronavir OC43 PCR Nasal Enterovir/Rhinovir PCR Nasal Influenza B PCR Nasal Influenza A PCR Nasal Parainfluen 1 PCR Nasal Parainfluen 2 PCR Nasal Parainfluen 3 PCR Nasal Parainfluen 4 PCR Nasal RSV (PCR) Nasal Screen MRSA (PCR) (NEGATIVE) Nasal B.pertussis DNA PCR Nasal C.pneumoniae (PCR) Juan Human Metapneumo PCR Nasal M.pneumoniae (PCR) Nasal SARS-CoV-2 (PCR) 11/14/22 11/14/22 11/14/22 Range/Units 04:44 04:44 04:44 WBC (4.8-10.8) x10^3/uL RBC (4.20-5.40) 10^6/uL Hgb (12.0-16.0) g/dL Hct (37.0-47.0) % MCV (81.0-99.0) fL MCH (27.0-31.0) pg MCHC (32.0-36.0) g/dL RDW (12.0-15.0) % Plt Count (130-450) 10^3/uL Neut # (Auto) Lymph # (Auto) [place] # (Auto) Eos # (Auto) Baso # (Auto) Absolute Nucleated RBC Total Counted Band Neuts % (Manual) (0 - 10) % Abnorm Lymph % (Manual) % Nucleated RBC % Neutrophils # (Manual) (1.5-6.6) 10^3/uL Lymphocytes # (Manual) (1.5-3.5) 10^3/uL Monocytes # (Manual) (0.0-1.0) 10^3/uL Eosinophils # (Manual) (0-0.7) 10^3/uL Basophils # (Manual) (0-0.1) 10^3/uL Differential Comment Manual Slide Review WBC Morphology (NORMAL) Platelet Estimate (NORMAL) Platelet Morphology (NORMAL) RBC Morph Micro Appear (NORMAL) Bld Gas Analysis Time Sample Site ABG pH (7.35-7.45) ABG pCO2 (34-45) mmHg ABG pO2 (80-100) mmHg ABG HCO3 (22.0-26.0) mmol/L ABG Total CO2 (21.0-29.0) MMOL/L ABG O2 Saturation (94-98) % ABG Base Excess (-2.0-3.0) mmol/L Jovon Test VBG pH (7.31-7.41) Ionized Calcium (1.15-1.33) mmol/L Room Air Sodium 115 L* (135-145) mmol/L Potassium 3.7 (3.5-4.5) mmol/L Chloride 84 L (101-111) mmol/L Carbon Dioxide 20 L (21-32) mmol/L Anion Gap 11.0 (6-13) BUN 24 H (6-20) mg/dL Creatinine 2.0 H (0.6-1.3) mg/dL Estimated GFR (MDRD) 25 L (>89) Glucose 83 (74-104) mg/dL POC Whole Bld Glucose (70 - 100) mg/dL Estimat Average Glucose 134 H (70-100) mg/dL Hemoglobin A1c % 6.3 H (4.27-6.07) % Lactic Acid (0.5-2.2) mmol/L Calcium 8.2 L (8.5-10.3) mg/dL Phosphorus 4.7 (2.5-5.0) mg/dL Magnesium 1.3 L (1.7-2.3) mg/dL Iron 50 (50-212) ug/dL TIBC 160 L (250-450) ug/dL % Saturation 31 (20-50) % Transferrin 114 L (203-362) mg/dL Total Bilirubin (0.2-1.0) mg/dL AST (10-42) IU/L ALT (10-60) IU/L Alkaline Phosphatase (42-121) IU/L Troponin I High Sens (2.3-14.8) ng/L B-Natriuretic Peptide (5-100) pg/mL Total Protein (6.4-8.9) g/dL Albumin (3.2-5.5) g/dL Globulin (2.1-4.2) g/dL Albumin/Globulin Ratio (1.0-2.2) Lipase (11-82) U/L TSH 0.08 L (0.34-5.60) uIU/mL Urine Color Urine Clarity (CLEAR) Urine pH (5.0-7.5) PH Ur Specific [place] (1.002-1.030) Urine Protein (NEGATIVE) mg/dL Urine Glucose (UA) (NEGATIVE) mg/dL Urine Ketones (NEGATIVE) mg/dL Urine Occult Blood (NEGATIVE) Urine Nitrite (NEGATIVE) Urine Bilirubin (NEGATIVE) Urine Urobilinogen (NORMAL) E.U./dL Ur Leukocyte Esterase (NEGATIVE) Urine RBC (0-5) /HPF Urine WBC (0-5) /HPF Ur Squamous Epith Cells (<= Few) Urine Bacteria (None Seen) /HPF Urine Casts /LPF Ur Microscopic Review Urine Culture Comments Urine Sodium mmol/L Nasal Adenovirus (PCR) Nasal B. parapertussis DNA (PCR) Nasal Coronavir 229E PCR Nasal Coronavir HKU1 PCR Nasal Coronavir NL63 PCR Nasal Coronavir OC43 PCR Nasal Enterovir/Rhinovir PCR Nasal Influenza B PCR Nasal Influenza A PCR Nasal Parainfluen 1 PCR Nasal Parainfluen 2 PCR Nasal Parainfluen 3 PCR Nasal Parainfluen 4 PCR Nasal RSV (PCR) Nasal Screen MRSA (PCR) (NEGATIVE) Nasal B.pertussis DNA PCR Nasal C.pneumoniae (PCR) Juan Human Metapneumo PCR Nasal M.pneumoniae (PCR) Nasal SARS-CoV-2 (PCR) 11/14/22 11/14/22 11/13/22 Range/Units 04:44 02:40 22:43 WBC 5.1 (4.8-10.8) x10^3/uL RBC 4.48 (4.20-5.40) 10^6/uL Hgb 8.7 L (12.0-16.0) g/dL Hct 28.7 L (37.0-47.0) % MCV 64.1 L (81.0-99.0) fL MCH 19.4 L (27.0-31.0) pg MCHC 30.3 L (32.0-36.0) g/dL RDW 14.7 (12.0-15.0) % Plt Count 228 (130-450) 10^3/uL Neut # (Auto) 4.4 Lymph # (Auto) 0.4 L [place] # (Auto) 0.3 Eos # (Auto) 0.0 Baso # (Auto) 0.0 Absolute Nucleated RBC 0.00 Total Counted Band Neuts % (Manual) (0 - 10) % Abnorm Lymph % (Manual) % Nucleated RBC % 0.0 Neutrophils # (Manual) (1.5-6.6) 10^3/uL Lymphocytes # (Manual) (1.5-3.5) 10^3/uL Monocytes # (Manual) (0.0-1.0) 10^3/uL Eosinophils # (Manual) (0-0.7) 10^3/uL Basophils # (Manual) (0-0.1) 10^3/uL Differential Comment Manual Slide Review Indicated WBC Morphology NORMAL APPEARANCE (NORMAL) Platelet Estimate NORMAL (130-450,000) (NORMAL) Platelet Morphology NORMAL APPEARANCE (NORMAL) RBC Morph Micro Appear 1+ MICROCYTOSIS (NORMAL) Bld Gas Analysis Time Sample Site ABG pH (7.35-7.45) ABG pCO2 (34-45) mmHg ABG pO2 (80-100) mmHg ABG HCO3 (22.0-26.0) mmol/L ABG Total CO2 (21.0-29.0) MMOL/L ABG O2 Saturation (94-98) % ABG Base Excess (-2.0-3.0) mmol/L Jovon Test VBG pH (7.31-7.41) Ionized Calcium (1.15-1.33) mmol/L Room Air Sodium 114 L* 114 L* (135-145) mmol/L Potassium (3.5-4.5) mmol/L Chloride (101-111) mmol/L Carbon Dioxide (21-32) mmol/L Anion Gap (6-13) BUN (6-20) mg/dL Creatinine (0.6-1.3) mg/dL Estimated GFR (MDRD) (>89) Glucose (74-104) mg/dL POC Whole Bld Glucose (70 - 100) mg/dL Estimat Average Glucose (70-100) mg/dL Hemoglobin A1c % (4.27-6.07) % Lactic Acid (0.5-2.2) mmol/L Calcium (8.5-10.3) mg/dL Phosphorus (2.5-5.0) mg/dL Magnesium (1.7-2.3) mg/dL Iron (50-212) ug/dL TIBC (250-450) ug/dL % Saturation (20-50) % Transferrin (203-362) mg/dL Total Bilirubin (0.2-1.0) mg/dL AST (10-42) IU/L ALT (10-60) IU/L Alkaline Phosphatase (42-121) IU/L Troponin I High Sens (2.3-14.8) ng/L B-Natriuretic Peptide (5-100) pg/mL Total Protein (6.4-8.9) g/dL Albumin (3.2-5.5) g/dL Globulin (2.1-4.2) g/dL Albumin/Globulin Ratio (1.0-2.2) Lipase (11-82) U/L TSH (0.34-5.60) uIU/mL Urine Color Urine Clarity (CLEAR) Urine pH (5.0-7.5) PH Ur Specific [place] (1.002-1.030) Urine Protein (NEGATIVE) mg/dL Urine Glucose (UA) (NEGATIVE) mg/dL Urine Ketones (NEGATIVE) mg/dL Urine Occult Blood (NEGATIVE) Urine Nitrite (NEGATIVE) Urine Bilirubin (NEGATIVE) Urine Urobilinogen (NORMAL) E.U./dL Ur Leukocyte Esterase (NEGATIVE) Urine RBC (0-5) /HPF Urine WBC (0-5) /HPF Ur Squamous Epith Cells (<= Few) Urine Bacteria (None Seen) /HPF Urine Casts /LPF Ur Microscopic Review Urine Culture Comments Urine Sodium mmol/L Nasal Adenovirus (PCR) Nasal B. parapertussis DNA (PCR) Nasal Coronavir 229E PCR Nasal Coronavir HKU1 PCR Nasal Coronavir NL63 PCR Nasal Coronavir OC43 PCR Nasal Enterovir/Rhinovir PCR Nasal Influenza B PCR Nasal Influenza A PCR Nasal Parainfluen 1 PCR Nasal Parainfluen 2 PCR Nasal Parainfluen 3 PCR Nasal Parainfluen 4 PCR Nasal RSV (PCR) Nasal Screen MRSA (PCR) (NEGATIVE) Nasal B.pertussis DNA PCR Nasal C.pneumoniae (PCR) Juan Human Metapneumo PCR Nasal M.pneumoniae (PCR) Nasal SARS-CoV-2 (PCR) 11/13/22 11/13/22 11/13/22 Range/Units 20:06 19:03 19:03 WBC (4.8-10.8) x10^3/uL RBC (4.20-5.40) 10^6/uL Hgb (12.0-16.0) g/dL Hct (37.0-47.0) % MCV (81.0-99.0) fL MCH (27.0-31.0) pg MCHC (32.0-36.0) g/dL RDW (12.0-15.0) % Plt Count (130-450) 10^3/uL Neut # (Auto) Lymph # (Auto) [place] # (Auto) Eos # (Auto) Baso # (Auto) Absolute Nucleated RBC Total Counted Band Neuts % (Manual) (0 - 10) % Abnorm Lymph % (Manual) % Nucleated RBC % Neutrophils # (Manual) (1.5-6.6) 10^3/uL Lymphocytes # (Manual) (1.5-3.5) 10^3/uL Monocytes # (Manual) (0.0-1.0) 10^3/uL Eosinophils # (Manual) (0-0.7) 10^3/uL Basophils # (Manual) (0-0.1) 10^3/uL Differential Comment Manual Slide Review WBC Morphology (NORMAL) Platelet Estimate (NORMAL) Platelet Morphology (NORMAL) RBC Morph Micro Appear (NORMAL) Bld Gas Analysis Time Sample Site ABG pH (7.35-7.45) ABG pCO2 (34-45) mmHg ABG pO2 (80-100) mmHg ABG HCO3 (22.0-26.0) mmol/L ABG Total CO2 (21.0-29.0) MMOL/L ABG O2 Saturation (94-98) % ABG Base Excess (-2.0-3.0) mmol/L Jovon Test VBG pH (7.31-7.41) Ionized Calcium (1.15-1.33) mmol/L Room Air Sodium 113 L* (135-145) mmol/L Potassium (3.5-4.5) mmol/L Chloride (101-111) mmol/L Carbon Dioxide (21-32) mmol/L Anion Gap (6-13) BUN (6-20) mg/dL Creatinine (0.6-1.3) mg/dL Estimated GFR (MDRD) (>89) Glucose (74-104) mg/dL POC Whole Bld Glucose 100 (70 - 100) mg/dL Estimat Average Glucose (70-100) mg/dL Hemoglobin A1c % (4.27-6.07) % Lactic Acid 0.5 (0.5-2.2) mmol/L Calcium (8.5-10.3) mg/dL Phosphorus (2.5-5.0) mg/dL Magnesium (1.7-2.3) mg/dL Iron (50-212) ug/dL TIBC (250-450) ug/dL % Saturation (20-50) % Transferrin (203-362) mg/dL Total Bilirubin (0.2-1.0) mg/dL AST (10-42) IU/L ALT (10-60) IU/L Alkaline Phosphatase (42-121) IU/L Troponin I High Sens (2.3-14.8) ng/L B-Natriuretic Peptide (5-100) pg/mL Total Protein (6.4-8.9) g/dL Albumin (3.2-5.5) g/dL Globulin (2.1-4.2) g/dL Albumin/Globulin Ratio (1.0-2.2) Lipase (11-82) U/L TSH (0.34-5.60) uIU/mL Urine Color Urine Clarity (CLEAR) Urine pH (5.0-7.5) PH Ur Specific [place] (1.002-1.030) Urine Protein (NEGATIVE) mg/dL Urine Glucose (UA) (NEGATIVE) mg/dL Urine Ketones (NEGATIVE) mg/dL Urine Occult Blood (NEGATIVE) Urine Nitrite (NEGATIVE) Urine Bilirubin (NEGATIVE) Urine Urobilinogen (NORMAL) E.U./dL Ur Leukocyte Esterase (NEGATIVE) Urine RBC (0-5) /HPF Urine WBC (0-5) /HPF Ur Squamous Epith Cells (<= Few) Urine Bacteria (None Seen) /HPF Urine Casts /LPF Ur Microscopic Review Urine Culture Comments Urine Sodium mmol/L Nasal Adenovirus (PCR) Nasal B. parapertussis DNA (PCR) Nasal Coronavir 229E PCR Nasal Coronavir HKU1 PCR Nasal Coronavir NL63 PCR Nasal Coronavir OC43 PCR Nasal Enterovir/Rhinovir PCR Nasal Influenza B PCR Nasal Influenza A PCR Nasal Parainfluen 1 PCR Nasal Parainfluen 2 PCR Nasal Parainfluen 3 PCR Nasal Parainfluen 4 PCR Nasal RSV (PCR) Nasal Screen MRSA (PCR) (NEGATIVE) Nasal B.pertussis DNA PCR Nasal C.pneumoniae (PCR) Juan Human Metapneumo PCR Nasal M.pneumoniae (PCR) Nasal SARS-CoV-2 (PCR) 11/13/22 11/13/22 11/13/22 Range/Units 19:03 17:48 17:40 WBC (4.8-10.8) x10^3/uL RBC (4.20-5.40) 10^6/uL Hgb (12.0-16.0) g/dL Hct (37.0-47.0) % MCV (81.0-99.0) fL MCH (27.0-31.0) pg MCHC (32.0-36.0) g/dL RDW (12.0-15.0) % Plt Count (130-450) 10^3/uL Neut # (Auto) Lymph # (Auto) [place] # (Auto) Eos # (Auto) Baso # (Auto) Absolute Nucleated RBC Total Counted Band Neuts % (Manual) (0 - 10) % Abnorm Lymph % (Manual) % Nucleated RBC % Neutrophils # (Manual) (1.5-6.6) 10^3/uL Lymphocytes # (Manual) (1.5-3.5) 10^3/uL Monocytes # (Manual) (0.0-1.0) 10^3/uL Eosinophils # (Manual) (0-0.7) 10^3/uL Basophils # (Manual) (0-0.1) 10^3/uL Differential Comment Manual Slide Review WBC Morphology (NORMAL) Platelet Estimate (NORMAL) Platelet Morphology (NORMAL) RBC Morph Micro Appear (NORMAL) Bld Gas Analysis Time 1804 Sample Site RIGHT BRACHIAL ABG pH 7.37 (7.35-7.45) ABG pCO2 38 (34-45) mmHg ABG pO2 67 L (80-100) mmHg ABG HCO3 21.5 L (22.0-26.0) mmol/L ABG Total CO2 22.6 (21.0-29.0) MMOL/L ABG O2 Saturation 94 (94-98) % ABG Base Excess -3.4 L (-2.0-3.0) mmol/L Jovon Test POSITIVE VBG pH (7.31-7.41) Ionized Calcium (1.15-1.33) mmol/L Room Air YES Sodium (135-145) mmol/L Potassium (3.5-4.5) mmol/L Chloride (101-111) mmol/L Carbon Dioxide (21-32) mmol/L Anion Gap (6-13) BUN (6-20) mg/dL Creatinine (0.6-1.3) mg/dL Estimated GFR (MDRD) (>89) Glucose (74-104) mg/dL POC Whole Bld Glucose 88 (70 - 100) mg/dL Estimat Average Glucose (70-100) mg/dL Hemoglobin A1c % (4.27-6.07) % Lactic Acid (0.5-2.2) mmol/L Calcium (8.5-10.3) mg/dL Phosphorus (2.5-5.0) mg/dL Magnesium (1.7-2.3) mg/dL Iron (50-212) ug/dL TIBC (250-450) ug/dL % Saturation (20-50) % Transferrin (203-362) mg/dL Total Bilirubin (0.2-1.0) mg/dL AST (10-42) IU/L ALT (10-60) IU/L Alkaline Phosphatase (42-121) IU/L Troponin I High Sens 13.1 (2.3-14.8) ng/L B-Natriuretic Peptide (5-100) pg/mL Total Protein (6.4-8.9) g/dL Albumin (3.2-5.5) g/dL Globulin (2.1-4.2) g/dL Albumin/Globulin Ratio (1.0-2.2) Lipase (11-82) U/L TSH (0.34-5.60) uIU/mL Urine Color Urine Clarity (CLEAR) Urine pH (5.0-7.5) PH Ur Specific [place] (1.002-1.030) Urine Protein (NEGATIVE) mg/dL Urine Glucose (UA) (NEGATIVE) mg/dL Urine Ketones (NEGATIVE) mg/dL Urine Occult Blood (NEGATIVE) Urine Nitrite (NEGATIVE) Urine Bilirubin (NEGATIVE) Urine Urobilinogen (NORMAL) E.U./dL Ur Leukocyte Esterase (NEGATIVE) Urine RBC (0-5) /HPF Urine WBC (0-5) /HPF Ur Squamous Epith Cells (<= Few) Urine Bacteria (None Seen) /HPF Urine Casts /LPF Ur Microscopic Review Urine Culture Comments Urine Sodium mmol/L Nasal Adenovirus (PCR) Nasal B. parapertussis DNA (PCR) Nasal Coronavir 229E PCR Nasal Coronavir HKU1 PCR Nasal Coronavir NL63 PCR Nasal Coronavir OC43 PCR Nasal Enterovir/Rhinovir PCR Nasal Influenza B PCR Nasal Influenza A PCR Nasal Parainfluen 1 PCR Nasal Parainfluen 2 PCR Nasal Parainfluen 3 PCR Nasal Parainfluen 4 PCR Nasal RSV (PCR) Nasal Screen MRSA (PCR) (NEGATIVE) Nasal B.pertussis DNA PCR Nasal C.pneumoniae (PCR) Juan Human Metapneumo PCR Nasal M.pneumoniae (PCR) Nasal SARS-CoV-2 (PCR) 11/13/22 11/13/22 11/13/22 Range/Units 17:25 15:25 15:25 WBC (4.8-10.8) x10^3/uL RBC (4.20-5.40) 10^6/uL Hgb (12.0-16.0) g/dL Hct (37.0-47.0) % MCV (81.0-99.0) fL MCH (27.0-31.0) pg MCHC (32.0-36.0) g/dL RDW (12.0-15.0) % Plt Count (130-450) 10^3/uL Neut # (Auto) Lymph # (Auto) [place] # (Auto) Eos # (Auto) Baso # (Auto) Absolute Nucleated RBC Total Counted Band Neuts % (Manual) (0 - 10) % Abnorm Lymph % (Manual) % Nucleated RBC % Neutrophils # (Manual) (1.5-6.6) 10^3/uL Lymphocytes # (Manual) (1.5-3.5) 10^3/uL Monocytes # (Manual) (0.0-1.0) 10^3/uL Eosinophils # (Manual) (0-0.7) 10^3/uL Basophils # (Manual) (0-0.1) 10^3/uL Differential Comment Manual Slide Review WBC Morphology (NORMAL) Platelet Estimate (NORMAL) Platelet Morphology (NORMAL) RBC Morph Micro Appear (NORMAL) Bld Gas Analysis Time Sample Site ABG pH (7.35-7.45) ABG pCO2 (34-45) mmHg ABG pO2 (80-100) mmHg ABG HCO3 (22.0-26.0) mmol/L ABG Total CO2 (21.0-29.0) MMOL/L ABG O2 Saturation (94-98) % ABG Base Excess (-2.0-3.0) mmol/L Jovon Test VBG pH (7.31-7.41) Ionized Calcium (1.15-1.33) mmol/L Room Air Sodium (135-145) mmol/L Potassium (3.5-4.5) mmol/L Chloride (101-111) mmol/L Carbon Dioxide (21-32) mmol/L Anion Gap (6-13) BUN (6-20) mg/dL Creatinine (0.6-1.3) mg/dL Estimated GFR (MDRD) (>89) Glucose (74-104) mg/dL POC Whole Bld Glucose (70 - 100) mg/dL Estimat Average Glucose (70-100) mg/dL Hemoglobin A1c % (4.27-6.07) % Lactic Acid (0.5-2.2) mmol/L Calcium (8.5-10.3) mg/dL Phosphorus (2.5-5.0) mg/dL Magnesium (1.7-2.3) mg/dL Iron (50-212) ug/dL TIBC (250-450) ug/dL % Saturation (20-50) % Transferrin (203-362) mg/dL Total Bilirubin (0.2-1.0) mg/dL AST (10-42) IU/L ALT (10-60) IU/L Alkaline Phosphatase (42-121) IU/L Troponin I High Sens 12.6 (2.3-14.8) ng/L B-Natriuretic Peptide 232 H (5-100) pg/mL Total Protein (6.4-8.9) g/dL Albumin (3.2-5.5) g/dL Globulin (2.1-4.2) g/dL Albumin/Globulin Ratio (1.0-2.2) Lipase (11-82) U/L TSH (0.34-5.60) uIU/mL Urine Color Urine Clarity (CLEAR) Urine pH (5.0-7.5) PH Ur Specific [place] (1.002-1.030) Urine Protein (NEGATIVE) mg/dL Urine Glucose (UA) (NEGATIVE) mg/dL Urine Ketones (NEGATIVE) mg/dL Urine Occult Blood (NEGATIVE) Urine Nitrite (NEGATIVE) Urine Bilirubin (NEGATIVE) Urine Urobilinogen (NORMAL) E.U./dL Ur Leukocyte Esterase (NEGATIVE) Urine RBC (0-5) /HPF Urine WBC (0-5) /HPF Ur Squamous Epith Cells (<= Few) Urine Bacteria (None Seen) /HPF Urine Casts /LPF Ur Microscopic Review Urine Culture Comments Urine Sodium mmol/L Nasal Adenovirus (PCR) Nasal B. parapertussis DNA (PCR) Nasal Coronavir 229E PCR Nasal Coronavir HKU1 PCR Nasal Coronavir NL63 PCR Nasal Coronavir OC43 PCR Nasal Enterovir/Rhinovir PCR Nasal Influenza B PCR Nasal Influenza A PCR Nasal Parainfluen 1 PCR Nasal Parainfluen 2 PCR Nasal Parainfluen 3 PCR Nasal Parainfluen 4 PCR Nasal RSV (PCR) Nasal Screen MRSA (PCR) NEGATIVE (NEGATIVE) Nasal B.pertussis DNA PCR Nasal C.pneumoniae (PCR) Juan Human Metapneumo PCR Nasal M.pneumoniae (PCR) Nasal SARS-CoV-2 (PCR) 11/13/22 11/13/22 11/13/22 Range/Units 15:25 15:25 14:25 WBC 7.4 (4.8-10.8) x10^3/uL RBC 4.72 (4.20-5.40) 10^6/uL Hgb 9.2 L (12.0-16.0) g/dL Hct 30.4 L (37.0-47.0) % MCV 64.4 L (81.0-99.0) fL MCH 19.5 L (27.0-31.0) pg MCHC 30.3 L (32.0-36.0) g/dL RDW 14.6 (12.0-15.0) % Plt Count 223 (130-450) 10^3/uL Neut # (Auto) Not Reportable Lymph # (Auto) Not Reportable [place] # (Auto) Not Reportable Eos # (Auto) Not Reportable Baso # (Auto) Not Reportable Absolute Nucleated RBC Not Reportable Total Counted 100 Band Neuts % (Manual) 11 H (0 - 10) % Abnorm Lymph % (Manual) 0 % Nucleated RBC % Not Reportable Neutrophils # (Manual) 6.7 H (1.5-6.6) 10^3/uL Lymphocytes # (Manual) 0.5 L (1.5-3.5) 10^3/uL Monocytes # (Manual) 0.1 (0.0-1.0) 10^3/uL Eosinophils # (Manual) 0.0 (0-0.7) 10^3/uL Basophils # (Manual) 0.0 (0-0.1) 10^3/uL Differential Comment MANUAL DIFFERENTIAL Manual Slide Review WBC Morphology (NORMAL) Platelet Estimate NORMAL (130-450,000) (NORMAL) Platelet Morphology NORMAL APPEARANCE (NORMAL) RBC Morph Micro Appear 2+ POIKILOCYTOSIS (NORMAL) Bld Gas Analysis Time Sample Site ABG pH (7.35-7.45) ABG pCO2 (34-45) mmHg ABG pO2 (80-100) mmHg ABG HCO3 (22.0-26.0) mmol/L ABG Total CO2 (21.0-29.0) MMOL/L ABG O2 Saturation (94-98) % ABG Base Excess (-2.0-3.0) mmol/L Jovon Test VBG pH (7.31-7.41) Ionized Calcium (1.15-1.33) mmol/L Room Air Sodium 110 L* (135-145) mmol/L Potassium 4.1 (3.5-4.5) mmol/L Chloride 82 L (101-111) mmol/L Carbon Dioxide 18 L (21-32) mmol/L Anion Gap 10.0 (6-13) BUN 20 (6-20) mg/dL Creatinine 1.9 H (0.6-1.3) mg/dL Estimated GFR (MDRD) 27 L (>89) Glucose 83 (74-104) mg/dL POC Whole Bld Glucose (70 - 100) mg/dL Estimat Average Glucose (70-100) mg/dL Hemoglobin A1c % (4.27-6.07) % Lactic Acid (0.5-2.2) mmol/L Calcium 8.6 (8.5-10.3) mg/dL Phosphorus (2.5-5.0) mg/dL Magnesium (1.7-2.3) mg/dL Iron (50-212) ug/dL TIBC (250-450) ug/dL % Saturation (20-50) % Transferrin (203-362) mg/dL Total Bilirubin 0.5 (0.2-1.0) mg/dL AST 26 (10-42) IU/L ALT 8 L (10-60) IU/L Alkaline Phosphatase 83 (42-121) IU/L Troponin I High Sens (2.3-14.8) ng/L B-Natriuretic Peptide (5-100) pg/mL Total Protein 6.6 (6.4-8.9) g/dL Albumin 3.9 (3.2-5.5) g/dL Globulin 2.7 (2.1-4.2) g/dL Albumin/Globulin Ratio 1.4 (1.0-2.2) Lipase < 10 L (11-82) U/L TSH (0.34-5.60) uIU/mL Urine Color Urine Clarity (CLEAR) Urine pH (5.0-7.5) PH Ur Specific [place] (1.002-1.030) Urine Protein (NEGATIVE) mg/dL Urine Glucose (UA) (NEGATIVE) mg/dL Urine Ketones (NEGATIVE) mg/dL Urine Occult Blood (NEGATIVE) Urine Nitrite (NEGATIVE) Urine Bilirubin (NEGATIVE) Urine Urobilinogen (NORMAL) E.U./dL Ur Leukocyte Esterase (NEGATIVE) Urine RBC (0-5) /HPF Urine WBC (0-5) /HPF Ur Squamous Epith Cells (<= Few) Urine Bacteria (None Seen) /HPF Urine Casts /LPF Ur Microscopic Review Urine Culture Comments Urine Sodium mmol/L Nasal Adenovirus (PCR) NOT DETECTED Nasal B. parapertussis DNA (PCR) NOT DETECTED Nasal Coronavir 229E PCR NOT DETECTED Nasal Coronavir HKU1 PCR NOT DETECTED Nasal Coronavir NL63 PCR NOT DETECTED Nasal Coronavir OC43 PCR NOT DETECTED Nasal Enterovir/Rhinovir PCR NOT DETECTED Nasal Influenza B PCR NOT DETECTED Nasal Influenza A PCR NOT DETECTED Nasal Parainfluen 1 PCR NOT DETECTED Nasal Parainfluen 2 PCR NOT DETECTED Nasal Parainfluen 3 PCR NOT DETECTED Nasal Parainfluen 4 PCR NOT DETECTED Nasal RSV (PCR) NOT DETECTED Nasal Screen MRSA (PCR) (NEGATIVE) Nasal B.pertussis DNA PCR NOT DETECTED Nasal C.pneumoniae (PCR) NOT DETECTED Juan Human Metapneumo PCR NOT DETECTED Nasal M.pneumoniae (PCR) NOT DETECTED Nasal SARS-CoV-2 (PCR) DETECTED A 11/13/22 11/13/22 Range/Units 14:05 14:05 WBC (4.8-10.8) x10^3/uL RBC (4.20-5.40) 10^6/uL Hgb (12.0-16.0) g/dL Hct (37.0-47.0) % MCV (81.0-99.0) fL MCH (27.0-31.0) pg MCHC (32.0-36.0) g/dL RDW (12.0-15.0) % Plt Count (130-450) 10^3/uL Neut # (Auto) Lymph # (Auto) [place] # (Auto) Eos # (Auto) Baso # (Auto) Absolute Nucleated RBC Total Counted Band Neuts % (Manual) (0 - 10) % Abnorm Lymph % (Manual) % Nucleated RBC % Neutrophils # (Manual) (1.5-6.6) 10^3/uL Lymphocytes # (Manual) (1.5-3.5) 10^3/uL Monocytes # (Manual) (0.0-1.0) 10^3/uL Eosinophils # (Manual) (0-0.7) 10^3/uL Basophils # (Manual) (0-0.1) 10^3/uL Differential Comment Manual Slide Review WBC Morphology (NORMAL) Platelet Estimate (NORMAL) Platelet Morphology (NORMAL) RBC Morph Micro Appear (NORMAL) Bld Gas Analysis Time Sample Site ABG pH (7.35-7.45) ABG pCO2 (34-45) mmHg ABG pO2 (80-100) mmHg ABG HCO3 (22.0-26.0) mmol/L ABG Total CO2 (21.0-29.0) MMOL/L ABG O2 Saturation (94-98) % ABG Base Excess (-2.0-3.0) mmol/L Jovon Test VBG pH (7.31-7.41) Ionized Calcium (1.15-1.33) mmol/L Room Air Sodium (135-145) mmol/L Potassium (3.5-4.5) mmol/L Chloride (101-111) mmol/L Carbon Dioxide (21-32) mmol/L Anion Gap (6-13) BUN (6-20) mg/dL Creatinine (0.6-1.3) mg/dL Estimated GFR (MDRD) (>89) Glucose (74-104) mg/dL POC Whole Bld Glucose (70 - 100) mg/dL Estimat Average Glucose (70-100) mg/dL Hemoglobin A1c % (4.27-6.07) % Lactic Acid (0.5-2.2) mmol/L Calcium (8.5-10.3) mg/dL Phosphorus (2.5-5.0) mg/dL Magnesium (1.7-2.3) mg/dL Iron (50-212) ug/dL TIBC (250-450) ug/dL % Saturation (20-50) % Transferrin (203-362) mg/dL Total Bilirubin (0.2-1.0) mg/dL AST (10-42) IU/L ALT (10-60) IU/L Alkaline Phosphatase (42-121) IU/L Troponin I High Sens (2.3-14.8) ng/L B-Natriuretic Peptide (5-100) pg/mL Total Protein (6.4-8.9) g/dL Albumin (3.2-5.5) g/dL Globulin (2.1-4.2) g/dL Albumin/Globulin Ratio (1.0-2.2) Lipase (11-82) U/L TSH (0.34-5.60) uIU/mL Urine Color YELLOW Urine Clarity CLEAR (CLEAR) Urine pH 6.5 (5.0-7.5) PH Ur Specific [place] 1.015 (1.002-1.030) Urine Protein 100 H (NEGATIVE) mg/dL Urine Glucose (UA) NEGATIVE (NEGATIVE) mg/dL Urine Ketones NEGATIVE (NEGATIVE) mg/dL Urine Occult Blood TRACE-INTA (NEGATIVE) Urine Nitrite NEGATIVE (NEGATIVE) Urine Bilirubin NEGATIVE (NEGATIVE) Urine Urobilinogen 0.2 (NORMAL) (NORMAL) E.U./dL Ur Leukocyte Esterase SMALL H (NEGATIVE) Urine RBC 0-5 (0-5) /HPF Urine WBC 11-25 H (0-5) /HPF Ur Squamous Epith Cells FEW Squamous (<= Few) Urine Bacteria Few (None Seen) /HPF Urine Casts 0-2 Hyaline Casts /LPF Ur Microscopic Review INDICATED Urine Culture Comments INDICATED Urine Sodium 48.2 mmol/L Nasal Adenovirus (PCR) Nasal B. parapertussis DNA (PCR) Nasal Coronavir 229E PCR Nasal Coronavir HKU1 PCR Nasal Coronavir NL63 PCR Nasal Coronavir OC43 PCR Nasal Enterovir/Rhinovir PCR Nasal Influenza B PCR Nasal Influenza A PCR Nasal Parainfluen 1 PCR Nasal Parainfluen 2 PCR Nasal Parainfluen 3 PCR Nasal Parainfluen 4 PCR Nasal RSV (PCR) Nasal Screen MRSA (PCR) (NEGATIVE) Nasal B.pertussis DNA PCR Nasal C.pneumoniae (PCR) Juan Human Metapneumo PCR Nasal M.pneumoniae (PCR) Nasal SARS-CoV-2 (PCR) Assessment/Plan - Problem List (1) Hyponatremia Impression: She was in the ER on 11/12 but did not have serum sodium checked. There is a remote history of hyponatremia felt to be from HCTZ. With this presentation on 11/13, she probably had hypovolemic hyponatremia since she had been somnolent, and not eating. She did not have a hyperglycemia to explain this as "pseudohyponatremia". Her hyponatremia was likely contributing to the confusion. She was admitted to the ICU last evening 11/13. She got 100 cc of 3% saline, then on NS at 60 cc/hr. Lasix 80 mg was given in ER last evening and she got Lasix 60 mg iv once this am, since the CXR showed poss CHF. We followed her serum sodium every 2 hours, it has come up slowly 110>> 113>> 114>> 114>> 115 this morning Plan: Remain in the ICU Continue IV normal saline, I will increase the rate from 60cc/hr to 83.33 cc/hr Stop iv Lasix Cont a free water oral restriction Will now follow her serum sodium q6h The goal be to correct the sodium 6 to 8 mEq over 12 to 24 hours. (2) Hypoglycemia associated with diabetes Conclusion/Plan: Her labs show that she had a serum sodium of 40 when she was in the ER y ester. I cannot find what was ordered to treat this for her. This could be a cause of the confusion that the son reported Today she is again hypoglycemic with glucose of 80 Plan: Cont a Diabetic diet, I will advance pureed to minced and moist Cont hypoglycemia protocol in a diabetic patient Cont fingerstick checks before meals and at bedtime and sliding scale Insulin coverage I will decrease the daytime Lantus dose Still awaiting a reconciled med list by pharmacy to know her exact meds and d oses (3) COVID-19 Conclusion/Plan: At presentation, she was not hypoxic but is very tachypneic with respiratory rate of 32, using accessory muscles of respiration. Her chest x-ray did show changes typical of a COVID-pneumonia with interstitial infiltrates, however the Radiologist read CXR as also c/w CHF. We obtained her BNP: She ruled out for an [place] with a set of 2 troponins and her EKG (which I read) showed no ischemia and was unchanged from previous. An ABG was done in the ICU, it did show pO2 of 67 and Decadron 10 mg IV x1, now 6 mg iv daily has been started Plan: Cont respiratory isolation Cont IV Decadron per protocol Given her immunocompromise state, she has a higher risk of a poor outcome from this COVID infection. Maintain O2 sats >92%. Since she is not desaturating, she does not qualify for Remdesivir (4) UTI (urinary tract infection) Conclusion/Plan: The UA from previous ER visit is abnormal and was sent for culture. That result is still pending. This UTI was likely contributing to the confusion Her L.A. came back normal A blood cx was done at adm to ICU (however she had already taken ~2 doses of her po Keflex) Plan: Follow her WBC daily Cont empiric IV antibiotics using ceftriaxone, based on the last urine culture which grew E. coli that was pansensitive Await the latest urine culture results from 11/12 ER visit, to tailor antibiotics Give Tylenol for pain or fever (5) Acute kidney injury superimposed on chronic kidney disease Conclusion/Plan: Even after her kidney transplant her creatinine has been running 1.2-1.7. Currently creatinine is 1.9 This could be from volume depletion given the recent poor oral intake. This could be from cardiorenal syndrome if she really has systolic heart failure showing up as pulmonary edema Lasix 80 mg was given in ER last evening and she got Lasix 60 mg iv once this am, since the CXR showed poss CHF. All labs were reviewed. her creat yo from 1.9 to 2.0 Plan: Will stop further iv Lasix dosing Avoid other nephrotoxins Follow BMP daily (6) Microcytic anemia Conclusion/Plan: This chart states she has a history of iron deficiency anemia. She comes in now with an MCV of 64 and hemoglobin of 9.2. Her stool guaiac came back neg Her iron panel came back with Transferrin and TIBC low (consistent with anemia of chronic disease), and Iron % sat is only 30% (all labs were reviewed). Plan: We will await her reconciled med list and resume iron if she is on it. I started her on Protonix daily AC for stress ulcer prevention (7) Renal transplant recipient Conclusion/Plan: She got a kidney in July 2019. She is followed by Dr Dalal at kidney transplant center She is on several immunosuppressants, which give her increased risk of poor outcome with a COVID infection Plan: Await the reconciled med list. If she is on steroids these need to be continued so she does not stop them suddenly and get Addisonian crisis (8) HTN Conclusion/Plan: Despite being volume depleted, she is not hypotensive. Med list shows that she takes Coreg 12.5 twice daily She is bradycardic at rest in the 50s Plan: I will decrease the Coreg dose to 9.375 BID
[2022-11-14] MEDS ORDERED: INSULIN GLARGINE-YFGN 300 UNIT/3 ML PEN SUBQ SCH (09:00)
[2022-11-14] MEDS: SODIUM CHLORIDE 0.9% 1,000 ML IV SCH ×2 (10:35→13:25)
[2022-11-14] MEDS: cefTRIAXone 1 GM in SODIUM CHLORIDE 0.9% MINIBAG 100 ML IV SCH (10:36)
--- NOTE | 2022-11-14 14:09 | PHARMACY PROGRESS NOTE ---
- Best Possible Medication History Admit Date and Time: 11/13/22 1631 Processed by: Pharmacy Medication History completed: Yes Patient Interview: Pt unable to participate Secondary Source(s): Written medication list, Spouse/Significant other, Other family member, Pharmacy records, Insurance records As the person ultimately responsible for medication therapy, providers are able to order a medication from an existing home medication list in [facility] via the "Reconcile Routine" prior to Confirmation of that medication by fire support specialist. Such practice is discouraged except when the physician, in their clinical judgment, deems that a medical need exists for a medication without regard to previous use.
[2022-11-14 14:25] LABS: CALCIUM, IONIZED 1.06 mmol/L (1.15-1.33); VBG PH 7.418 (7.31-7.41)
[2022-11-15] MEDS: SODIUM CHLORIDE FLUSH 0.9% 10 ML SYRINGE IVP SCH ×3 (00:37→17:28)
[2022-11-15] MEDS: SODIUM CHLORIDE 0.9% 1,000 ML IV SCH ×2 (00:37→13:13)
[2022-11-15 05:44] LABS: CALCIUM, IONIZED 1.08 mmol/L (1.15-1.33); VBG PH 7.409 (7.31-7.41)
[2022-11-15 05:54] LABS: POTASSIUM 3.8 mmol/L (3.5-4.5)
[2022-11-15] MEDS ORDERED: POTASSIUM CHLORIDE 20 MEQ TABLET PO ONE (06:06)
[2022-11-15] MEDS: SODIUM BICARBONATE 650 MG TABLET PO SCH ×3 (06:58→21:13)
[2022-11-15] MEDS: PANTOPRAZOLE 40 MG TABLET PO SCH (06:58)
[2022-11-15 08:10] LABS: CALCIUM 8.3 mg/dL (8.5-10.3); POTASSIUM 3.9 mmol/L (3.5-4.5)
[2022-11-15] MEDS: INSULIN LISPRO 300 UNIT/3 ML PEN SUBQ SCH ×4 (08:16→21:19)
[2022-11-15] MEDS: ASPIRIN CHEW 81 MG TABLET PO SCH (08:19)
[2022-11-15] MEDS: CHOLECALCIFEROL 400 UNIT TABLET PO SCH ×2 (08:19→21:13)
[2022-11-15] MEDS: TACROLIMUS 0.5 MG CAPSULE PO SCH ×2 (08:20→21:14)
[2022-11-15] MEDS: MYCOPHENOLATE SODIUM 180 MG PO SCH ×2 (08:20→21:14)
[2022-11-15] MEDS: cefTRIAXone 1 GM in SODIUM CHLORIDE 0.9% MINIBAG 100 ML IV SCH (08:21)
[2022-11-15] MEDS: carvediloL 3.125 MG TABLET PO SCH (08:22)
[2022-11-15] MEDS: DEXAMETHASONE 4 MG/ML VIAL IVP SCH (08:22)
[2022-11-15] MEDS: INSULIN GLARGINE-YFGN 300 UNIT/3 ML PEN SUBQ SCH (08:23)
[2022-11-15] MEDS: HEPARIN 5,000 UNIT/ML VIAL SUBQ SCH ×2 (08:28→21:23)
--- NOTE | 2022-11-15 19:07 | PROVIDER PROGRESS NOTE ---
Subjective - Subjective Pt reports feeling: No change (Stronger than when she came in but no different than yesterday. Tolerating solid diabetic diet RN reports she had a morning glucose of 40 and received orange juice and nicole crackers) Objective - Vital Signs/Intake & Output Reviewed Vital Signs: Yes Vital Signs: Vital Signs Temp Pulse Resp BP Pulse Ox O2 Flow Rate 11/15/22 19:00 60 17 154/56 H 96 11/15/22 18:20 37.0 C 11/15/22 17:00 64 16 132/52 H 100 11/15/22 16:04 60 22 136/53 H 100 1 Intake & Output: Intake & Output 11/12/22 11/13/22 11/14/22 11/15/22 23:59 23:59 23:59 23:59 Intake Total 265 2273.315 2905.631 Output Total 650 2850 2450 Balance -385 576.685 455.631 - Objective General Appearance: positive: No acute distress (Exam done remotely with report of RN), Alert Eyes Bilateral: positive: Normal inspection ENT: positive: No signs of dehydration Neck: positive: Nml inspection Respiratory: positive: No respiratory distress Cardiovascular: positive: Regular rate & rhythm Abdomen: positive: No distention Skin: positive: Warm, Dry Extremities: positive: Non-tender, No pedal edema Neurologic/Psychiatric: positive: Oriented x3, Motor nml - Lab Results Fish Bones: 11/16/22 04:39 11/16/22 17:17 Other Labs: Lab Results x24hrs 11/15/22 11/15/22 11/15/22 Range/Units 17:06 11:28 04:48 VBG pH (7.31-7.41) Ionized Calcium (1.15-1.33) mmol/L Sodium 125 L 124 L 123 L (135-145) mmol/L Potassium 3.9 (3.5-4.5) mmol/L Chloride 90 L (101-111) mmol/L Carbon Dioxide 22 (21-32) mmol/L Anion Gap 11.0 (6-13) BUN 27 H (6-20) mg/dL Creatinine 2.0 H (0.6-1.3) mg/dL Estimated GFR (MDRD) 25 L (>89) Glucose 72 L (74-104) mg/dL Calcium 8.3 L (8.5-10.3) mg/dL Phosphorus (2.5-5.0) mg/dL Magnesium (1.7-2.3) mg/dL B-Natriuretic Peptide (5-100) pg/mL 11/15/22 11/15/22 11/15/22 Range/Units 04:48 04:48 04:48 VBG pH 7.409 (7.31-7.41) Ionized Calcium 1.08 L (1.15-1.33) mmol/L Sodium 122 L (135-145) mmol/L Potassium 3.8 (3.5-4.5) mmol/L Chloride (101-111) mmol/L Carbon Dioxide (21-32) mmol/L Anion Gap (6-13) BUN (6-20) mg/dL Creatinine (0.6-1.3) mg/dL Estimated GFR (MDRD) (>89) Glucose (74-104) mg/dL Calcium (8.5-10.3) mg/dL Phosphorus 3.0 (2.5-5.0) mg/dL Magnesium 2.0 (1.7-2.3) mg/dL B-Natriuretic Peptide 178 H (5-100) pg/mL 11/14/22 Range/Units 23:13 VBG pH (7.31-7.41) Ionized Calcium (1.15-1.33) mmol/L Sodium 119 L* (135-145) mmol/L Potassium (3.5-4.5) mmol/L Chloride (101-111) mmol/L Carbon Dioxide (21-32) mmol/L Anion Gap (6-13) BUN (6-20) mg/dL Creatinine (0.6-1.3) mg/dL Estimated GFR (MDRD) (>89) Glucose (74-104) mg/dL Calcium (8.5-10.3) mg/dL Phosphorus (2.5-5.0) mg/dL Magnesium (1.7-2.3) mg/dL B-Natriuretic Peptide (5-100) pg/mL Assessment/Plan - Problem List (1) Hyponatremia Impression: She was in the ER on 11/12 but did not have serum sodium checked. There is a remote history of hyponatremia felt to be from HCTZ. With this presentation on 9/3, she probably had hypovolemic hyponatremia since she had been somnolent, and not eating. She did not have a hyperglycemia to explain this as "pseudohyponatremia". Her hyponatremia was likely contributing to the confusion. She was admitted to the ICU last evening 11/13. She got 100 cc of 3% saline, then on NS at 60 cc/hr. Lasix 80 mg was given in ER last evening and she got Lasix 60 mg iv once this am, since the CXR showed poss CHF. We followed her serum sodium every 2 hours, it has come up slowly 110>> 113>> 114>> 114>> 115>> 119>> 122>> 123 this morning Plan: Continue IV normal saline at 83.33 cc/hr Remain off iv Lasix Cont a free water oral restriction Will now follow her serum sodium q12h The goal be to correct the sodium 6 to 8 mEq over 12 to 24 hours. (2) Hypoglycemia associated with diabetes Conclusion/Plan: Her labs show that she had a serum sodium of 40 when she was in the ER on 11/12. I cannot find what was ordered to treat this for her. This could be a cause of the confusion that the son reported Today she is again hypoglycemic with glucose of 45 this morning. I reviewed all her medications that could be adding to this and she is getting no long-acting agent at night to cause a severe morning drop in glucose Plan: Remain in the ICU Cont a Diabetic diet Cont hypoglycemia protocol in a diabetic patient Cont fingerstick checks before meals and at bedtime and sliding scale Insulin coverage I will decrease the daytime Lantus dose further I will request an official nutrition consult (3) COVID-19 Conclusion/Plan: At presentation, she was not hypoxic but is very tachypneic with respiratory rate of 32, using accessory muscles of respiration. Her chest x-ray did show changes typical of a COVID-pneumonia with interstitial infiltrates, however the Radiologist read CXR as also c/w CHF. We obtained her BNP: She ruled out for an [place] with a set of 2 troponins and her EKG (which I read) showed no ischemia and was unchanged from previous. An ABG was done in the ICU, it did show pO2 of 67 and Decadron 10 mg IV x1, now 6 mg iv daily has been started Plan: Cont respiratory isolation Cont IV Decadron per protocol Given her immunocompromise state, she has a higher risk of a poor outcome from this COVID infection. Maintain O2 sats >92%. Since she is not desaturating, she does not qualify for Remdesivir (4) UTI (urinary tract infection) Conclusion/Plan: The UA from previous ER visit is abnormal and was sent for culture. That result is still pending. This UTI was likely contributing to the confusion Her L.A. came back normal The urine culture results from 11/12 ER visit, is growing Klebsiela, awaiting sens Plan: Follow her WBC daily Cont empiric IV antibiotics using ceftriaxone Give Tylenol for pain or fever (5) Acute kidney injury superimposed on chronic kidney disease Conclusion/Plan: Even after her kidney transplant her creatinine has been running 1.2-1.7. Currently creatinine is 1.9 This could be from volume depletion given the recent poor oral intake. This could be from cardiorenal syndrome if she really has systolic heart failure showing up as pulmonary edema Lasix 80 mg was given in ER last evening and she got Lasix 60 mg iv once this am, since the CXR showed poss CHF. All labs were reviewed. her creat yo from 1.9 to 2.0 and remains 2.0 today Plan: Remain off iv Lasix dosing Avoid other nephrotoxins Follow BMP daily (6) Microcytic anemia Conclusion/Plan: This chart states she has a history of iron deficiency anemia. She comes in now with an MCV of 64 and hemoglobin of 9.2. Her stool guaiac came back neg Her iron panel came back with Transferrin and TIBC low (consistent with anemia of chronic disease), and Iron % sat is only 30% (all labs were reviewed). Plan: We will await her reconciled med list and resume iron if she is on it. I started her on Protonix daily AC for stress ulcer prevention (7) Renal transplant recipient Conclusion/Plan: She got a kidney in July 2019. She is followed by Dr Dalal at kidney transplant center She is on several immunosuppressants, which give her increased risk of poor outcome with a COVID infection Plan: She remains on her 2 "patient's own med" for renal transplant antirejection meds and is on IV Decadron (8) Bradycardia Conclusion/Plan: Despite being volume depleted, she is not hypotensive. Med list shows that she took Coreg 12.5 twice daily She is still bradycardic at rest in the 50s, even after I decreased Coreg to 9.375 BID Plan: I will decrease the Coreg dose to 6.25 BID
[2022-11-15] MEDS: carvediloL 12.5 MG TABLET PO SCH (21:13)
[2022-11-16] MEDS: SODIUM CHLORIDE 0.9% 1,000 ML IV SCH ×2 (01:34→14:25)
[2022-11-16] MEDS: SODIUM CHLORIDE FLUSH 0.9% 10 ML SYRINGE IVP SCH ×3 (04:28→17:37)
[2022-11-16 05:20] LABS: BASOPHILS % (AUTO) 0.2 %; EOSINOPHILS % (AUTO) 0.1 %; HCT - HEMATOCRIT 29.9 % (37.0-47.0); HGB - HEMOGLOBIN 8.9 g/dL (12.0-16.0); LYMPHOCYTES # (AUTO) 0.9 10^3/uL (1.5-3.5); LYMPHOCYTES % (AUTO) 10.4 %; MEAN CORPUSCULAR HEMOGLOBIN 19.5 pg (27.0-31.0); MEAN CORPUSCULAR HGB CONC 29.8 g/dL (32.0-36.0); MEAN CORPUSCULAR VOLUME 65.6 fL (81.0-99.0); MEAN PLATELET VOLUME 10.8 fL (7.9-10.8); MONOCYTES # (AUTO) 0.8 10^3/uL (0.0-1.0); MONOCYTES % (AUTO) 9.9 %; NEUTROPHILS # (AUTO) 6.3 10^3/uL (1.5-6.6); NEUTROPHILS % (AUTO) 77.4 %; PLT - PLATELET COUNT 330 10^3/uL (130-450); RED BLOOD COUNT 4.56 10^6/uL (4.20-5.40); WHITE BLOOD COUNT 8.2 x10^3/uL (4.8-10.8)
[2022-11-16 05:21] LABS: CALCIUM, IONIZED 1.13 mmol/L (1.15-1.33); VBG PH 7.416 (7.31-7.41)
[2022-11-16 05:27] LABS: SLIDE REVIEW? Indicated
[2022-11-16 05:37] LABS: CALCIUM 8.8 mg/dL (8.5-10.3); CREATININE 1.9 mg/dL (0.6-1.3); MAGNESIUM 1.8 mg/dL (1.7-2.3); POTASSIUM 4.1 mmol/L (3.5-4.5)
[2022-11-16 05:57] LABS: RBC MORPHOLOGY (MULTIPLE) 2+ MICROCYTOSIS (NORMAL)
[2022-11-16 05:58] LABS: PLATELET ESTIMATE, MANUAL NORMAL (130-450,000) (NORMAL)
[2022-11-16] MEDS: PANTOPRAZOLE 40 MG TABLET PO SCH (05:59)
[2022-11-16] MEDS: SODIUM BICARBONATE 650 MG TABLET PO SCH ×3 (05:59→21:12)
[2022-11-16] MEDS ORDERED: INSULIN GLARGINE-YFGN 300 UNIT/3 ML PEN SUBQ SCH (09:00)
[2022-11-16] MEDS: TACROLIMUS 0.5 MG CAPSULE PO SCH ×2 (09:18→21:12)
[2022-11-16] MEDS: ASPIRIN CHEW 81 MG TABLET PO SCH (09:19)
[2022-11-16] MEDS: MYCOPHENOLATE SODIUM 180 MG PO SCH ×2 (09:19→21:12)
[2022-11-16] MEDS: carvediloL 12.5 MG TABLET PO SCH ×2 (09:19→21:11)
[2022-11-16] MEDS: CHOLECALCIFEROL 400 UNIT TABLET PO SCH ×2 (09:19→21:12)
[2022-11-16] MEDS: gemfibroziL 600 MG TABLET PO SCH (09:20)
[2022-11-16] MEDS: HEPARIN 5,000 UNIT/ML VIAL SUBQ SCH ×2 (09:25→21:14)
[2022-11-16] MEDS: DEXAMETHASONE 4 MG/ML VIAL IVP SCH (09:25)
[2022-11-16] MEDS: INSULIN LISPRO 300 UNIT/3 ML PEN SUBQ SCH ×6 (09:47→21:13)
[2022-11-16] MEDS: cefTRIAXone 1 GM in SODIUM CHLORIDE 0.9% MINIBAG 100 ML IV SCH (09:47)
[2022-11-16] MEDS: guaiFENesin 600 MG TABLET PO SCH ×2 (14:31→21:12)
--- NOTE | 2022-11-16 16:57 | PROVIDER PROGRESS NOTE ---
Subjective - Subjective Pt reports feeling: No change (Is requesting an expectorant to loosen up her cough, denies SOB, is eating) Objective - Vital Signs/Intake & Output Reviewed Vital Signs: Yes Vital Signs: Vital Signs Pulse Resp BP Pulse Ox 11/16/22 16:14 64 22 152/63 H 96 11/16/22 15:00 62 20 166/52 H 97 11/16/22 14:00 62 22 146/49 H 95 11/16/22 13:00 68 28 H 135/65 H 97 Intake & Output: Intake & Output 11/13/22 11/14/22 11/15/22 11/16/22 23:59 23:59 23:59 23:59 Intake Total 265 2273.315 2905.631 3135.017 Output Total 650 2850 3000 1575 Balance -385 -576.685 -94.369 1560.017 - Objective General Appearance: positive: No acute distress (Exam done remotely (at edge of her room) with help of RN since she is on isolation) ENT: positive: No signs of dehydration Neck: positive: Nml inspection Respiratory: positive: No respiratory distress Cardiovascular: positive: Regular rate & rhythm Abdomen: positive: No distention Skin: positive: Warm, Dry Extremities: positive: Non-tender - Lab Results Fish Bones: 11/16/22 04:39 11/16/22 17:17 Other Labs: Lab Results x24hrs 11/16/22 11/16/22 11/16/22 Range/Units 04:39 04:39 04:39 WBC 8.2 (4.8-10.8) x10^3/uL RBC 4.56 (4.20-5.40) 10^6/uL Hgb 8.9 L (12.0-16.0) g/dL Hct 29.9 L (37.0-47.0) % MCV 65.6 L (81.0-99.0) fL MCH 19.5 L (27.0-31.0) pg MCHC 29.8 L (32.0-36.0) g/dL RDW 15.0 (12.0-15.0) % Plt Count 330 (130-450) 10^3/uL MPV 10.8 (7.9-10.8) fL Neut # (Auto) 6.3 (1.5-6.6) 10^3/uL Lymph # (Auto) 0.9 L (1.5-3.5) 10^3/uL [place] # (Auto) 0.8 (0.0-1.0) 10^3/uL Eos # (Auto) 0.0 (0.0-0.7) 10^3/uL Baso # (Auto) 0.0 (0.0-0.1) 10^3/uL Absolute Nucleated RBC 0.00 x10^3/uL Nucleated RBC % 0.0 /100WBC Manual Slide Review Indicated Platelet Estimate NORMAL (130-450,000) (NORMAL) RBC Morph Micro Appear 2+ MICROCYTOSIS (NORMAL) VBG pH 7.416 H (7.31-7.41) Ionized Calcium 1.13 L (1.15-1.33) mmol/L Sodium 131 L (135-145) mmol/L Potassium 4.1 (3.5-4.5) mmol/L Chloride 100 L (101-111) mmol/L Carbon Dioxide 23 (21-32) mmol/L Anion Gap 8.0 (6-13) BUN 23 H (6-20) mg/dL Creatinine 1.9 H (0.6-1.3) mg/dL Estimated GFR (MDRD) 27 L (>89) Glucose 113 H (74-104) mg/dL Calcium 8.8 (8.5-10.3) mg/dL Phosphorus 3.0 (2.5-5.0) mg/dL Magnesium 1.8 (1.7-2.3) mg/dL 11/15/22 Range/Units 17:06 WBC (4.8-10.8) x10^3/uL RBC (4.20-5.40) 10^6/uL Hgb (12.0-16.0) g/dL Hct (37.0-47.0) % MCV (81.0-99.0) fL MCH (27.0-31.0) pg MCHC (32.0-36.0) g/dL RDW (12.0-15.0) % Plt Count (130-450) 10^3/uL MPV (7.9-10.8) fL Neut # (Auto) (1.5-6.6) 10^3/uL Lymph # (Auto) (1.5-3.5) 10^3/uL [place] # (Auto) (0.0-1.0) 10^3/uL Eos # (Auto) (0.0-0.7) 10^3/uL Baso # (Auto) (0.0-0.1) 10^3/uL Absolute Nucleated RBC x10^3/uL Nucleated RBC % /100WBC Manual Slide Review Platelet Estimate (NORMAL) RBC Morph Micro Appear (NORMAL) VBG pH (7.31-7.41) Ionized Calcium (1.15-1.33) mmol/L Sodium 125 L (135-145) mmol/L Potassium (3.5-4.5) mmol/L Chloride (101-111) mmol/L Carbon Dioxide (21-32) mmol/L Anion Gap (6-13) BUN (6-20) mg/dL Creatinine (0.6-1.3) mg/dL Estimated GFR (MDRD) (>89) Glucose (74-104) mg/dL Calcium (8.5-10.3) mg/dL Phosphorus (2.5-5.0) mg/dL Magnesium (1.7-2.3) mg/dL Assessment/Plan - Problem List (1) Hypoglycemia associated with diabetes Impression: Her labs show that she had a serum sodium of 40 when she was in the ER on 11/12. I cannot find what was ordered in the ER to treat this for her, or what the ED provider considered and told he. This recurrent hypoglycemia could be a cause of the confusion that the son reported She was again hypoglycemic with glucose of 45 two days ago, then glu 100 yesterday and better today. I reviewed all her labs and I reviewed all her medications that could be adding to these events. She is getting no long-acting agent at night to cause a severe morning drop in glucose.Most likly the Insulin effect is prolonged given her renal failure PLUS she was not eating and yet taking her usual am Lantus 31 U at home. Plan: Remain in the ICU Cont a Diabetic diet Cont hypoglycemia protocol in a diabetic patient Cont fingerstick checks before meals and at bedtime and sliding scale Insulin coverage I will decrease the daytime Lantus dose further I will request an official nutrition consult (2) Bundle branch block, unspecified Impression: Telemetry showed that she went into a paroxysmal bundle branch block, ventricular rate 68, but still had underlying sinus rhythm, then came out of the bundle branch block to a narrow complex, rate 60. It is therefore not a rate-related bundle. It lasted for <1 min. Her BP was stable at the time and she had no c/o. Plan: Remain on telemetry Consider doing an Echocardiogram (3) Bradycardia Conclusion/Plan: Despite being volume depleted, she is not hypotensive. Med list shows that she took Coreg 12.5 twice daily at home She is still bradycardic at rest in the 50s, even after I decreased Coreg to 9.375 BID. Then HR 57 on Coreg dose to 6.25 BID Plan: Remain on this dose Remain on telem (4) Hyponatremia She was in the ER on 11/12 but did not have serum sodium checked. There is a remote history of hyponatremia felt to be from HCTZ. With this presentation on 11/13, she probably had hypovolemic hyponatremia since she had been somnolent, and not eating. She did not have a hyperglycemia to explain this as "pseudohyponatremia". Her hyponatremia was likely contributing to the confusion. She was admitted to the ICU and got 100 cc of 3% saline, then on NS at 60 cc/ hr>> 83.33. We followed her serum sodium closely and it has come up slowly 110>> 113>> 114>> 114>> 115>> 119>> 122>> 123>> is 132 this morning. I checked her urine sodium and she was losing sodium inappropriately, came back at 43. She might have a component of SIADH. Plan: Continue IV normal saline at 83.33 cc/hr Remain off iv Lasix Cont a free water oral restriction She will need to see her transplant dry chain worker to consider if she has SIADH Will now follow her serum sodium daily She can be moved out of the ICU if needed, discussed with Charge Nurse (5) COVID-19 Conclusion/Plan: At presentation, she was not hypoxic but is very tachypneic with respiratory rate of 32, using accessory muscles of respiration. Her chest x-ray did show changes typical of a COVID-pneumonia with interstitial infiltrates, however the Radiologist read CXR as also c/w CHF. We obtained her BNP: She ruled out for an TN with a set of 2 troponins and her EKG (which I read) showed no ischemia and was unchanged from previous. An ABG was done in the ICU, it did show pO2 of 67 and Decadron 10 mg IV x1, now 6 mg iv daily has been started Plan: Cont respiratory isolation Cont IV Decadron per protocol Given her immunocompromise state, she has a higher risk of a poor outcome from this COVID infection. Maintain O2 sats >92%. Since she is not desaturating, she does not qualify for Remdesivir I will add Mucinex 600 po BID, as she requested (6) UTI (urinary tract infection) Conclusion/Plan: The UA from the 11/12 ER visit is growing Klebsiella that is oneill-sens except to Ampicillin This UTI was likely also contributing to the confusion Plan: Will change the iv ceftriaxone to Cipro po BID tomorrow and discharge her on this (7) Acute kidney injury superimposed on chronic kidney disease Conclusion/Plan: Even after her kidney transplant her creatinine has been running 1.2-1.7. Currently creatinine is 1.9 This could be from volume depletion given the recent poor oral intake. This could be from cardiorenal syndrome if she really has systolic heart failure showing up as pulmonary edema Lasix 80 mg was given in ER last evening and she got Lasix 60 mg iv once this am, since the CXR showed poss CHF. All labs were reviewed. Her creat yo from 1.9 to 2.0 and returned to 1.9 today Plan: Remain off iv Lasix dosing Avoid other nephrotoxins Follow BMP daily (8) Microcytic anemia Conclusion/Plan: This chart states she has a history of iron deficiency anemia. She comes in now with an MCV of 64 and hemoglobin of 9.2. Her stool guaiac came back neg Her iron panel came back with Transferrin and TIBC low (consistent with anemia of chronic disease), and Iron % sat is only 30% (all labs were reviewed). She was not on iron replacement at home, per her reconciled med list Plan: I will start her on oral Iron I started her on Protonix daily AC for stress ulcer prevention (9) Renal transplant recipient Conclusion/Plan: She got a kidney in July 2019. She is followed by Dr Dalal at kidney transplant center She is on several immunosuppressants, which give her increased risk of poor outcome with a COVID infection Plan: She remains on her 2 "patient's own med" for renal transplant antirejection meds and is on IV Decadron
[2022-11-16] MEDS: hydrALAZINE INJ 20 MG/ML VIAL IVP PRN (23:22)
[2022-11-17] MEDS: SODIUM CHLORIDE FLUSH 0.9% 10 ML SYRINGE IVP SCH ×2 (00:12→09:46)
[2022-11-17] MEDS: SODIUM CHLORIDE 0.9% 1,000 ML IV SCH (02:18)
[2022-11-17] MEDS: SODIUM BICARBONATE 650 MG TABLET PO SCH (06:00)
[2022-11-17] MEDS: PANTOPRAZOLE 40 MG TABLET PO SCH (06:00)
[2022-11-17] MEDS: hydrALAZINE INJ 20 MG/ML VIAL IVP PRN (06:24)
[2022-11-17] MEDS ORDERED: INSULIN GLARGINE-YFGN 300 UNIT/3 ML PEN SUBQ SCH (08:10)
[2022-11-17 08:56] LABS: CALCIUM 9.3 mg/dL (8.5-10.3); CREATININE 1.9 mg/dL (0.6-1.3)
[2022-11-17 09:15] VITALS: O2SAT 97
[2022-11-17] MEDS: cefTRIAXone 1 GM in SODIUM CHLORIDE 0.9% MINIBAG 100 ML IV SCH (09:19)
[2022-11-17] MEDS: DEXAMETHASONE 4 MG/ML VIAL IVP SCH (09:22)
[2022-11-17] MEDS: INSULIN LISPRO 300 UNIT/3 ML PEN SUBQ SCH ×4 (09:24→12:09)
[2022-11-17] MEDS: HEPARIN 5,000 UNIT/ML VIAL SUBQ SCH (09:30)
[2022-11-17] MEDS: guaiFENesin 600 MG TABLET PO SCH (09:32)
[2022-11-17] MEDS: ASPIRIN CHEW 81 MG TABLET PO SCH (09:32)
[2022-11-17] MEDS: CHOLECALCIFEROL 400 UNIT TABLET PO SCH (09:32)
[2022-11-17] MEDS: carvediloL 12.5 MG TABLET PO SCH (09:33)
[2022-11-17] MEDS: MYCOPHENOLATE SODIUM 180 MG PO SCH (09:46)
--- NOTE | 2022-11-17 10:54 | Discharge Plan ---
Discharge Plan Problem Reviewed?: Yes Disposition: Home, Self Care Condition: Fair Prescriptions: Ciprofloxacin HCl [Cipro] 500 mg PO BID #6 tablet carvediloL [Coreg] 6.25 mg PO BID #60 tab Insulin Lispro [Humalog] 3 - 5 units SUBQ TIDWM #100 ml Insulin Glargine [Lantus Solostar] 7 units SUBQ DAILY #100 ml guaiFENesin [Mucinex] 600 mg PO BID #10 tab Diet: Diabetic Activity Restrictions: Activity as Tolerated Shower Restrictions: No Health Concerns: You were hospitalized to treat a very low sodium level in your blood, which made you tired and confused. And we found you to have repeatedly low glucose levels in the 40s, which would also make you tired and confused. In addition, you had a new urinary tract infection, which has made you weak and confused in the past. We also found that you had COVID, which was probably your upper respiratory symptoms, that started 2 weeks ago. You are being discharged home today and now advised to take much lower Insulin d oses. You qualify to be seen as a patient in the Diabetic Education Clinic here at the [facility] the [facility], if you are interested. Please follow the new list of medications and doses provided for you today. Please remember to check your sugar level. If you are eating less food, you should not be taking the same high amounts of insulin, as when you were eating alot of food with a good appetite. Also you have been prescribed Mucinex to help loosen up your cough and bring up the phlegm. According to CDC guidelines, you should remain in isolation for 21 days from the time your COVID symptoms started, which were about 2 weeks before this hospitalization. Therefore, you still should be in isolation for about 4 more days. Your Carvedilol dose is now lower, not 12.5 twice a day but 6.25 twice a day. It needed to be lowered because you had a low heart rate. You are being discharged home to take a course of antibiotics for your urinary tract infection. Ciprofloxacin has been prescribed to your pharmacy. All new prescriptions were electronically sent to your [facility] pharmacy in [place]. Please see your primary care provider in the next 1 to 2 weeks for a hospital follow-up visit. You should bring in this medication list and talk about your new lower dose of insulin, lower dose of Carvedilol, the urinary tract infection, and the COVID infection. In addition, you should see your kidney specialist to discuss why your serum sodium was this severely low, since you may have a syndrome called SIADH. Plan of Treatment: As above. Care Goals: Improvement in symptoms and stabilization are the goals. Assessment: The patient understands and is agreeable with the plan. Additional Instructions or Follow Up instructions: If you have new or worsening symptoms, call your PCP or your kidney specialist for advice, or come to the ER . Follow-Up Care: [facility] - Diabetes Ed No Smoking: If you smoke, Please STOP! Call for help. Follow-up with: SANDY MILLER, [Primary Care Provider] -
[2022-11-17] MEDS: TACROLIMUS 0.5 MG CAPSULE PO SCH (12:04)
--- NOTE | 2022-11-17 13:23 | DISCHARGE SUMMARY ---
Discharge Summary Admit Date: 11/13/22 Discharge Date: 11/17/22 Discharging Provider: Dr Villa Primary Care Provider: Dr Muir Condition at Discharge: Fair Discharge Disposition: 01 Home, Self Care - HPI History of Present Illness: This is a 62-year-old female of [place] origin who has a history of diabetes mellitus, hypertension, chronic kidney disease and used to be on renal dialysis, then she got a kidney transplant in July 2019. She gets frequent UTIs, in 04/02 and 07/31 she had Serratia UTI, and in 09/30 had E coli UTI. She also has had admission for hyponatremia felt to be from HCTZ which was recommended to be stopped. Her last creatinine has been running 1.2-1.7. She is followed by Dr. Dalal at kidney transplant center. The patient came to the ER yesterday evening 11/12/22, complaining of feeling weak for 1-2 weeks, with somnolence and confusion and the son reported that she usually has a UTI when she gets confused. There is no ER provider note from that ER visit in [facility] to see, but looking at other documentation, she had a serum glucose in the 40s, her urinalysis was abnormal and she was felt to have a UTI. She was discharged to go home with a prescription for Keflex. Patient presented back to the ER about 12 hours later, in the afternoon today 11/13/22, with complaint of rapid onset shortness of breath and nasal congestion. She has taken about 2 doses of the prescribed Keflex. In the ER now she was noted to have a respiratory rate of 32 but otherwise stable vital signs with blood pressure 163/88, heart rate 52, O2 saturation 96% on room air. Her BNP is 232, the last BNP was 8 years ago and was normal at 20. Her chest x-ray showed cardiomegaly and fluffy interstitial infiltrates consistent with either atypical pneumonia or CHF. Her Respiratory PCR is positive for COVID. She was not tested for COVID yesterday. Her serum sodium is 110 and creatinine is 1.9. She did not have a complete BMP done yesterday. The ED provider spoke to me about this patient. She will be admitted to the ICU for treating severe hyponatremia, confusion, recent hypoglycemia in a Diabetic, UTI, MAY, and COVID-pneumonia in a patient who is immunocompromised and has a renal transplant. She is in critical condition. Her CODE status is Full Code. - HOSPITAL COURSE Hospital Course: (1) Hyponatremia She was in the ER on 11/12 but did not have serum sodium checked then. There is a remote history of hyponatremia felt to be from HCTZ. With this presentation on 11/13, she probably had hypovolemic hyponatremia since she had been somnolent, and not eating. She did not have a hyperglycemia to explain this as "pseudohyponatremia". Her hyponatremia was likely contributing to the confusion. She was admitted to the ICU and got hypertonic saline, then NS. We followed her serum sodium closely and it improved slowly. Her urine sodium came back at 43, suggesting she may be losing sodium inappropriately, thus she might have SIADH. She needs to see her transplant Financial Investment Adviser to consider if she has SIADH. (2) Hypoglycemia associated with diabetes Her prior labs showed that she had a serum glucose of 40 when she was in the ER on (before this admission). I could not see documented what was done in the ER then, and she was discharged from the ER. She was again hypoglycemic with glucose of 45 as an Inpt now. Her Insulin doses were changed. (3) COVID-19 At presentation, she was not hypoxic but was very tachypneic. Her chest x-ray did show changes typical of a COVID-pneumonia with interstitial infiltrates. She was put on Mucinex BID and IV Decadron per protocol, but did not qualify to get Remdesivir. Given her immunocompromised state, she had a higher risk of a poor outcome from this COVID infection, but she did fine, and never had hypoxia. She was discharged with a prescription for Mucinex 600 po BID, which had helped her here. Per CDC guidelines, any immunocompromised patient needs to stay in isolation for 3 weeks. Her symptoms started 2 weeks before this hospitalization, therefore she has approximately 4 more days to be in isolation, she was told. (4) UTI (urinary tract infection) This UTI was likely also contributing to the confusion. The UA from the 11/12 ER visit grew Klebsiella, oneill-sensitive except to Ampicillin. She was kept on empiric IV Ceftriaxone, and then discharged to take several more days of Cipro po BID. (5) Bradycardia Despite being volume depleted, she was not tachycardic, in fact her HR was 50. She was on Coreg 12.5 BID at home. The Coreg was decreased to 9.375 BID and eventually to 6.25 BID, and she was discharged home on this lower Coreg dose. (6) Bundle branch block, unspecified Telemetry showed that she went into a temporary bundle branch block, ventricular rate 68, but still had underlying sinus rhythm. It lasted for <1 min. Her BP was stable at the time and she had no c/o. Decreasing the Carvedilol dose now may also prevent this from happening too. Please consider if she needs an Echocardiogram. (7) Acute kidney injury superimposed on chronic kidney disease Even after her kidney transplant her creatinine has been running 1.2-1.7. During this hospitalization her creatinine was 1.9-2.0 (8) Microcytic anemia This chart states she has a history of iron deficiency anemia. She came in now with an MCV of 64 and hemoglobin of 9.2. Her stool guaiac came back neg Her iron panel came back with Transferrin and TIBC low (consistent with anemia of chronic disease), and Iron % sat is only 30%. She was not on iron replacement at home, per her reconciled med list. She needs to be started on Iron replacement. (9) Renal transplant recipient She got a kidney in July 2019. She is followed by Dr Dalal at kidney transplant center. We kept her on her immunosuppressants antirejection meds, but had her on IV Decadron instead of Prednisone daily while here. - ALLERGIES Allergies/Adverse Reactions: Allergies Allergy/AdvReac Type Severity Reaction Status Date / Time lactose AdvReac Cramps Verified 11/14/22 14:24 - MEDICATIONS Home Medications: Ambulatory Orders Medication Instructions Recorded Confirmed Aspirin 81 mg PO DAILY 11/28/17 11/14/22 Cinacalcet HCl [Sensipar] 60 mg PO DAILY 03/26/20 11/14/22 Mycophenolate Sodium [Myfortic] 180 mg PO BID 03/26/20 11/14/22 Tacrolimus [Prograf] 3 mg PO DAILY 03/26/20 11/14/22 gemfibroziL [Lopid] 600 mg PO Q48H 03/26/20 11/14/22 predniSONE [Prednisone] 5 mg PO DAILY 03/26/20 11/14/22 Cholecalciferol (Vitamin D3) 50 mcg PO DAILY 11/14/22 11/14/22 [Vitamin D3] Cranberry Fruit Extract [Cranberry] 500 mg PO DAILY 11/14/22 11/14/22 Latanoprost 0.005% Ophth Drops 1 drops RIGHTEYE QPM 11/14/22 11/14/22 [Xalatan Ophth Drops] Losartan Potassium 25 mg PO DAILY 11/14/22 11/14/22 Pravastatin Sodium 20 mg PO QPM 11/14/22 11/14/22 Sodium Bicarbonate 650 mg PO TID 11/14/22 11/14/22 Tacrolimus [Prograf] 2.5 mg PO QPM 11/14/22 11/14/22 Ciprofloxacin HCl [Cipro] 500 mg PO BID #6 tablet 11/17/22 Insulin Glargine [Lantus Solostar] 7 units SUBQ DAILY #100 ml 11/17/22 Insulin Lispro [Humalog] 3 - 5 units SUBQ TIDWM #100 ml 11/17/22 carvediloL [Coreg] 6.25 mg PO BID #60 tab 11/17/22 guaiFENesin [Mucinex] 600 mg PO BID #10 tab 11/17/22 - PHYSICAL EXAM AT DISCHARGE General Appearance: positive: No acute distress, Alert Eyes Bilateral: positive: Normal inspection ENT: positive: No signs of dehydration Neck: positive: Nml inspection Respiratory: positive: No respiratory distress Cardiovascular: positive: No murmur Abdomen: positive: Non-tender, No distention Skin: positive: Warm, Dry Extremities: positive: No pedal edema Neurologic/Psychiatric: positive: Oriented x3, Motor nml - LABS Result Diagrams: 11/16/22 04:39 11/17/22 08:30 - DIAGNOSTIC IMAGING Diagnostic Imaging Results: Final report reviewed - FOLLOW UP Follow Up: See established providers for a hospital f/u visit. - TIME SPENT Time Spent in Discharge (Minutes): 40
[2022-11-17 15:00] VITALS: BP 154/50
[2022-11-17] MEDS ORDERED: LATANOPROST 0.005% OPHTH DROPS RIGHTEYE SCH (21:00)
[2022-11-17] MEDS ORDERED: PRAVASTATIN 10 MG TABLET PO SCH (21:00)
== END 2022-11-17 14:20 | disposition home or self-care (01) | DRG 177 ==
LOC: ED 13:29 → ICU 16:31
PROVIDERS: ADMIT Internal Medicine; ATTEND Internal Medicine
DX: U07.1 COVID-19 (principal); E87.1 Hypo-osmolality and hyponatremia; R06.82 Tachypnea, not elsewhere classified; I10 Essential (primary) hypertension; E11.9 Type 2 diabetes mellitus without complications; J12.82 Pneumonia due to coronavirus disease 2019; Z94.0 Kidney transplant status; N39.0 Urinary tract infection, site not specified; N17.9 Acute kidney failure, unspecified; E22.2 Syndrome of inappropriate secretion of antidiuretic hormone; E11.649 Type 2 diabetes mellitus with hypoglycemia without coma; R00.1 Bradycardia, unspecified; E11.22 Type 2 diabetes mellitus with diabetic chronic kidney disease; I45.4 Nonspecific intraventricular block; I12.9 Hypertensive chronic kidney disease with stage 1 through stage 4 chronic kidney disease, or unspecified chronic kidney disease; N18.9 Chronic kidney disease, unspecified; D50.9 Iron deficiency anemia, unspecified; Z79.4 Long term (current) use of insulin; Z79.52 Long term (current) use of systemic steroids; Z79.82 Long term (current) use of aspirin; Z79.899 Other long term (current) drug therapy; Z82.3 Family history of stroke; Z82.49 Family history of ischemic heart disease and other diseases of the circulatory system; Z83.3 Family history of diabetes mellitus; Z87.891 Personal history of nicotine dependence
CPT/HCPCS: 36415; 36600; 71045; 80048; 80053; 81001; 82272; 82330; 82803; 83036; 83540; 83605; 83690; 83735; 83880; 84100; 84132; 84295; 84300; 84439; 84443; 84466; 84484; 85025; 87040; 87086; 87150; 87633; 93005; 96374; 99285; A9270; J1815; 81003